=== PATIENT | female | born 1965 | race Caucasian/White ===

== ENCOUNTER → 2018-01-14 08:01 | Outpatient (CLI) | payer OTHER, SELFPAY ==
--- NOTE | 2018-01-14 08:16 | BI_ITS ---
MAMMOGRAPHY - BILATERAL SCREENING REASON FOR EXAM: Female, 52 years old. Routine annual screening examination. PERTINENT HISTORY: Non-contributory. TECHNIQUE: Digital bilateral breast maryanne (3D mammographic acquisition) in the CC and MLO projections. 2-D mediolateral oblique (MLO) and craniocaudad (CC) views of both breasts were obtained. CAD: Full Field Digital Mammography with Computer Added Detection was performed. COMPARISON: Comparison is made with prior study dated February 07, 2014 and September 10, 2011. FINDINGS: Breast Composition: The breasts are heterogeneously dense, which may obscure small masses. There are no dominant masses or suspicious calcifications. No other significant abnormalities are identified. There has been no significant change since the prior study. BI/SCREENING MAMM (CAD), BILAT IMPRESSION: Stable bilateral screening mammogram. Yearly follow-up mammogram recommended. (A) ASSESSMENT CATEGORY: BIRADS Category 1: Negative. A letter regarding these results will be sent to the patient by the facility within 30 days. Approximately 10% of breast cancers are not detected by mammography. A normal mammogram should not delay biopsy of a clinically suspicious abnormality. [id number] Electronically Signed: Giovany Saldana MD at 10:29 EDT Tel [phone], Service support ,
== END ==
PROVIDERS: Family Provider Family Medicine; PCP Family Medicine; Visit Provider Nurse Practitioner Women's Health
DX: Z12.31 Encounter for screening mammogram for malignant neoplasm of breast (principal)
CPT/HCPCS: 77063; 77067

== ENCOUNTER → 2019-12-24 08:00 | Outpatient (CLI) | payer OTHER, SELFPAY ==
--- NOTE | 2019-12-24 08:01 | BI_ITS ---
MAMMOGRAPHY - BILATERAL SCREENING REASON FOR EXAM: Female, 54 years old. Routine annual screening examination. PERTINENT HISTORY: Non-contributory. Remote left needle biopsy. TECHNIQUE: Digital bilateral breast carlyle (3D mammographic acquisition) in the CC and MLO projections. 2-D mediolateral oblique (MLO) and craniocaudad (CC) views of both breasts were obtained. CAD: Full Field Digital Mammography with Computer Added Detection was performed. COMPARISON: Comparison is made with prior examination dated January 14, 2018 and January 16, 2014. FINDINGS: Breast Composition: The breasts are heterogeneously dense, which may obscure small masses. There are no dominant masses or suspicious calcifications. Stable small benign appearing bilateral axillary lymph nodes. No other significant abnormalities are identified. There has been no significant change since the prior study. BI/SCREEN MAMM (CAD) W/CARLYLE BILAT IMPRESSION: Stable bilateral screening mammogram. Yearly follow-up mammogram recommended. (A) ASSESSMENT CATEGORY: BIRADS Category 2: Benign. A letter regarding these results will be sent to the patient by the facility within 30 days. Approximately 10% of breast cancers are not detected by mammography. A normal mammogram should not delay biopsy of a clinically suspicious abnormality. [id number] Electronically Signed: Giovany Saldana, at 9:49 EDT , Service support ,
== END ==
PROVIDERS: PCP Family Medicine; Referring Provider Nurse Practitioner Women's Health; Visit Provider Nurse Practitioner Women's Health
DX: Z12.31 Encounter for screening mammogram for malignant neoplasm of breast (principal)
CPT/HCPCS: 77063; 77067

== ENCOUNTER → 2019-12-29 07:37 | Outpatient (CLI) | payer OTHER, SELFPAY ==
[2019-12-24 08:34] VITALS: BMI 36.5
--- NOTE | 2019-12-29 07:56 | US_ITS ---
STUDY: ULTRASOUND OF THE FEMALE PELVIS - COMPLETE REASON FOR EXAM: Female, 54 years old. Irregular menses TECHNIQUE: Transabdominal and Transvaginal TECHNICAL QUALITY: Adequate. COMPARISON: None. FINDINGS: The uterus is anteverted and is in a midline position. The uterus measures 9.4 cm x 4.8 cm x 4.9 cm. There is a Nabothian cyst of the cervix. The endometrium measures 3.1 mm in thickness, and is hyperechoic. There is no demonstrated endometrial mass. The uterus is of heterogeneous echotexture in keeping with fibroid change although no focal fibroid is seen. I.U.D. - The patient does not have an I.U.D. The right ovary is visualized. The right ovary measures 2.9 cm x 1.9 cm x 1.6 cm. There is no right ovarian cyst or ovarian mass. There is no visualized right adnexal mass or complex lesion. There is normal arterial and normal venous vascularity. The left ovary is visualized. The left ovary measures 5.4 cm x 4.2 cm x 2.8 cm. There is a 3.5 cm x 3.3 cm x 2.7 cm cyst in the left ovary. There is no visualized left adnexal mass or complex lesion. There is normal arterial and normal venous vascularity. There is no fluid in the cul-de-sac. The pre void volume of the bladder was 139 ml. Polycystic ovary disease: No. US/Pelvic (Non ) IMPRESSION: Heterogeneous echotexture of the uterus suggestive of fibroid change. 3.5 cm x 3.3 cm x 2.7 cm left ovarian cyst. Electronically Signed: Giovany Saldana, at 10:23 EDT , Service support ,
--- NOTE | 2019-12-29 07:56 | US_ITS ---
STUDY: ULTRASOUND OF THE FEMALE PELVIS - COMPLETE REASON FOR EXAM: Female, 54 years old. Irregular menses TECHNIQUE: Transabdominal and Transvaginal TECHNICAL QUALITY: Adequate. COMPARISON: None. FINDINGS: The uterus is anteverted and is in a midline position. The uterus measures 9.4 cm x 4.8 cm x 4.9 cm. There is a Nabothian cyst of the cervix. The endometrium measures 3.1 mm in thickness, and is hyperechoic. There is no demonstrated endometrial mass. The uterus is of heterogeneous echotexture in keeping with fibroid change although no focal fibroid is seen. I.U.D. - The patient does not have an I.U.D. The right ovary is visualized. The right ovary measures 2.9 cm x 1.9 cm x 1.6 cm. There is no right ovarian cyst or ovarian mass. There is no visualized right adnexal mass or complex lesion. There is normal arterial and normal venous vascularity. The left ovary is visualized. The left ovary measures 5.4 cm x 4.2 cm x 2.8 cm. There is a 3.5 cm x 3.3 cm x 2.7 cm cyst in the left ovary. There is no visualized left adnexal mass or complex lesion. There is normal arterial and normal venous vascularity. There is no fluid in the cul-de-sac. The pre void volume of the bladder was 139 ml. Polycystic ovary disease: No. US/Transvaginal Non- IMPRESSION: Heterogeneous echotexture of the uterus suggestive of fibroid change. 3.5 cm x 3.3 cm x 2.7 cm left ovarian cyst. Electronically Signed: Giovany Saldana, at 10:23 EDT , Service support ,
== END ==
PROVIDERS: PCP Family Medicine; Referring Provider Nurse Practitioner Women's Health; Visit Provider Nurse Practitioner Women's Health
DX: N92.6 Irregular menstruation, unspecified (principal)
CPT/HCPCS: 76830; 76856

== ENCOUNTER → 2020-03-01 07:58 | Outpatient (CLI) | payer OTHER, SELFPAY ==
[2019-12-24 08:34] VITALS: BMI 36.5
--- NOTE | 2020-03-01 07:59 | US_ITS ---
STUDY: ULTRASOUND OF THE FEMALE PELVIS - COMPLETE REASON FOR EXAM: Female, 54 years old. F/U LT O CYST -- PERIMENOPAUSAL LMP: 11/24/2019. TECHNIQUE: Transabdominal and Transvaginal TECHNICAL QUALITY: Adequate. COMPARISON: Comparison is made with prior study dated 12/29/2019. FINDINGS: The uterus is anteverted and is in a midline position. The uterus measures 11.6 cm x 6.4 cm x 6.3 cm. Normal uterine cervix. The endometrium measures 5.0 mm in thickness, and is hyperechoic. Punctate calcifications are seen within the endometrium. There is no demonstrated endometrial mass. The myometrium is of heterogeneous echotexture with fibroid change although no focal fibroid is seen. Small amount of fluid is seen within the cervix. I.U.D. - The patient does not have an I.U.D. The right ovary is visualized. The right ovary measures 2.8 cm x 3.1 cm x 1.1 cm. There is no right ovarian cyst or ovarian mass. There is no visualized right adnexal mass or complex lesion. There is normal arterial and normal venous vascularity. The left ovary is visualized. The left ovary measures 4 cm x 4.9 cm x 2.9 cm. There is a 3.1 cm x 3.1 cm x 2.4 cm cyst in the left ovary. There is no visualized left adnexal mass or complex lesion. There is normal arterial and normal venous vascularity. There is no fluid in the cul-de-sac. US/Transvaginal Non- IMPRESSION: Mildly enlarged heterogeneous uterus. 3.1 cm x 3.1 cm x 2.4 cm cyst in the left ovary. This has decreased slightly in size as compared to prior study. Electronically Signed: Giovany Saldana, at 10:02 EDT , Service support ,
--- NOTE | 2020-03-01 07:59 | US_ITS ---
STUDY: ULTRASOUND OF THE FEMALE PELVIS - COMPLETE REASON FOR EXAM: Female, 54 years old. F/U LT O CYST -- PERIMENOPAUSAL LMP: 11/24/2019. TECHNIQUE: Transabdominal and Transvaginal TECHNICAL QUALITY: Adequate. COMPARISON: Comparison is made with prior study dated 12/29/2019. FINDINGS: The uterus is anteverted and is in a midline position. The uterus measures 11.6 cm x 6.4 cm x 6.3 cm. Normal uterine cervix. The endometrium measures 5.0 mm in thickness, and is hyperechoic. Punctate calcifications are seen within the endometrium. There is no demonstrated endometrial mass. The myometrium is of heterogeneous echotexture with fibroid change although no focal fibroid is seen. Small amount of fluid is seen within the cervix. I.U.D. - The patient does not have an I.U.D. The right ovary is visualized. The right ovary measures 2.8 cm x 3.1 cm x 1.1 cm. There is no right ovarian cyst or ovarian mass. There is no visualized right adnexal mass or complex lesion. There is normal arterial and normal venous vascularity. The left ovary is visualized. The left ovary measures 4 cm x 4.9 cm x 2.9 cm. There is a 3.1 cm x 3.1 cm x 2.4 cm cyst in the left ovary. There is no visualized left adnexal mass or complex lesion. There is normal arterial and normal venous vascularity. There is no fluid in the cul-de-sac. US/Pelvic (Non ) IMPRESSION: Mildly enlarged heterogeneous uterus. 3.1 cm x 3.1 cm x 2.4 cm cyst in the left ovary. This has decreased slightly in size as compared to prior study. Electronically Signed: Giovany Saldana, at 10:02 EDT , Service support ,
== END ==
PROVIDERS: PCP Family Medicine; Referring Provider Nurse Practitioner Women's Health; Visit Provider Nurse Practitioner Women's Health
DX: N83.209 Unspecified ovarian cyst, unspecified side (principal)
CPT/HCPCS: 76830; 76856

== ENCOUNTER → 2020-07-26 08:03 | Outpatient (CLI) | payer OTHER, SELFPAY ==
[2020-03-31 09:29] VITALS: BMI 37.2
--- NOTE | 2020-07-26 08:08 | US_ITS ---
STUDY: ULTRASOUND OF THE FEMALE PELVIS - COMPLETE REASON FOR EXAM: Female, 55 years old. F/U LTO CYST, PELVIC PAIN LMP: 06/17/2020 TECHNIQUE: Transabdominal and Transvaginal TECHNICAL QUALITY: Adequate. COMPARISON: 03/01/2020 FINDINGS: The uterus is anteverted and is in a midline position. The uterus measures 11.5 x 5.8 x 3.6 cm. Normal uterine cervix. The endometrium measures 5 mm in thickness, and is hyperechoic. There is no demonstrated endometrial mass. There is no demonstrated myometrial mass. I.U.D. - The patient does not have an I.U.D. The right ovary is visualized. The right ovary measures 1.4 x 2.3 x 1.5 cm. There is no right ovarian cyst or ovarian mass. There is no visualized right adnexal mass or complex lesion. There is normal arterial and normal venous vascularity. The left ovary is visualized. The left ovary measures 4.8 x 4.2 x 3.4 cm. 3.4 cm corpus luteum cyst left ovary. There is no visualized left adnexal mass or complex lesion. There is normal arterial and normal venous vascularity. There is no fluid in the cul-de-sac. The pre void volume of the bladder was ml. The post void volume of the bladder was ml. Polycystic ovary disease: No. US/Transvaginal Non- IMPRESSION: 3.4 cm corpus luteum cyst left ovary. Electronically Signed: Roshan Winter MD at 9:27 EST Tel , Service support ,
--- NOTE | 2020-07-26 08:08 | US_ITS ---
STUDY: ULTRASOUND OF THE FEMALE PELVIS - COMPLETE REASON FOR EXAM: Female, 55 years old. F/U LTO CYST, PELVIC PAIN LMP: 06/17/2020 TECHNIQUE: Transabdominal and Transvaginal TECHNICAL QUALITY: Adequate. COMPARISON: 03/01/2020 FINDINGS: The uterus is anteverted and is in a midline position. The uterus measures 11.5 x 5.8 x 3.6 cm. Normal uterine cervix. The endometrium measures 5 mm in thickness, and is hyperechoic. There is no demonstrated endometrial mass. There is no demonstrated myometrial mass. I.U.D. - The patient does not have an I.U.D. The right ovary is visualized. The right ovary measures 1.4 x 2.3 x 1.5 cm. There is no right ovarian cyst or ovarian mass. There is no visualized right adnexal mass or complex lesion. There is normal arterial and normal venous vascularity. The left ovary is visualized. The left ovary measures 4.8 x 4.2 x 3.4 cm. 3.4 cm corpus luteum cyst left ovary. There is no visualized left adnexal mass or complex lesion. There is normal arterial and normal venous vascularity. There is no fluid in the cul-de-sac. The pre void volume of the bladder was ml. The post void volume of the bladder was ml. Polycystic ovary disease: No. US/Pelvic (Non ) IMPRESSION: 3.4 cm corpus luteum cyst left ovary. Electronically Signed: Roshan Winter MD at 9:27 EST Tel , Service support ,
== END ==
PROVIDERS: PCP Family Medicine; Referring Provider Obstetrics & Gynecology; Visit Provider Obstetrics & Gynecology
DX: N80.0 Endometriosis of uterus (principal)
CPT/HCPCS: 76830; 76856; 93976

== ENCOUNTER → 2021-01-27 16:38 | Outpatient (CLI) | payer OTHER, SELFPAY ==
[2021-01-27 08:53] VITALS: BMI 36.5
[2021-02-02 16:00] LABS: HPV APTIMA, High Risk Negative (Negative)
== END ==
PROVIDERS: PCP Family Medicine; Visit Provider Obstetrics & Gynecology
DX: Z12.4 Encounter for screening for malignant neoplasm of cervix (principal)
CPT/HCPCS: 87624; 88175; G0145

== ENCOUNTER → 2021-02-03 07:19 | Outpatient (CLI) | payer OTHER, SELFPAY ==
[2020-03-31 09:29] VITALS: BMI 37.2
[2021-01-27 08:53] VITALS: BMI 36.5
--- NOTE | 2021-02-03 07:19 | BI_ITS ---
MAMMOGRAPHY - BILATERAL SCREENING REASON FOR EXAM: Female, 55 years old. Routine annual screening examination. PERTINENT HISTORY: Non-contributory. TECHNIQUE: Digital bilateral breast carlyle (3D mammographic acquisition) in the CC and MLO projections. 2-D mediolateral oblique (MLO) and craniocaudad (CC) views of both breasts were obtained. CAD: Full Field Digital Mammography with Computer Added Detection was performed. COMPARISON: Comparison is made with prior examination dated 12/24/2019 and 01/14/2018. FINDINGS: Breast Composition: The breasts are heterogeneously dense, which may obscure small masses. There are no dominant masses or suspicious calcifications. Stable benign-appearing bilateral axillary nodes. No other significant abnormalities are identified. There has been no significant change since the prior study. BI/SCRN MAMM (CAD)W/CARLYLE BILAT IMPRESSION: Stable bilateral screening mammogram. Yearly follow-up mammogram recommended. (A) ASSESSMENT CATEGORY: BIRADS Category 2: Benign. A letter regarding these results will be sent to the patient by the facility within 30 days. Approximately 10% of breast cancers are not detected by mammography. A normal mammogram should not delay biopsy of a clinically suspicious abnormality. [id number] Electronically Signed: Giovany Saldana MD at 8:18 EDT , Service support ,
== END ==
PROVIDERS: PCP Family Medicine; Referring Provider Obstetrics & Gynecology; Visit Provider Obstetrics & Gynecology
DX: Z12.31 Encounter for screening mammogram for malignant neoplasm of breast (principal)
CPT/HCPCS: 77063; 77067

== ENCOUNTER → 2023-03-18 | Outpatient (CLI) | payer OTHER, SELFPAY ==
[2023-03-18 12:09] LABS: Estradiol < 11.0 pg/mL; Follicle Stimulating Hormone 54.8 mIU/mL
== END | disposition home or self-care (01) ==
PROVIDERS: PCP Family Medicine; Referring Provider Obstetrics & Gynecology; Visit Provider Obstetrics & Gynecology
DX: N92.6 Irregular menstruation, unspecified (principal)
CPT/HCPCS: 36415; 82670; 83001

== ENCOUNTER → 2023-03-26 | Outpatient (CLI) | payer OTHER, SELFPAY ==
--- NOTE | 2023-03-26 15:29 | US_ITS ---
INDICATION: IRREGULAR MENSES EXAMINATION: Ultrasound US Pelvis Non OB Complete With Transvaginal Imaging COMPARISON: None. FINDINGS: 99 grayscale ultrasound images of the pelvis obtained both transabdominally and transvaginally. In addition dedicated ovarian color Doppler and Doppler waveform interrogation was performed. Cinematic series provided. UTERUS: Uterus measures : 12.4 x 7.3 x 4.5 cm. Endometrial thickness of 0.5 cm. Anechoic fluid within the endocervical canal. Myometrium is heterogeneous with dominant shadowing hypoechoic and echogenic lesions consistent with fibroids, containing shadowing calcifications measuring up to 1.6 cm. ADNEXA: Flow is documented to bilateral ovaries by color Doppler as well as Doppler waveform. Right ovary is not visualized. Left ovarian anechoic 4.2 cm cyst. No significant free fluid. Distended urinary bladder is without obvious abnormality, 275 cc volume. US/Pelvic w/ Transvaginal IMPRESSION: Right ovary is not visualized. Left ovarian anechoic 4.2 cm cyst. Enlarged fibroid uterus. Electronically Signed: Edson Luis MD at 6:50 EDT ,
== END | disposition home or self-care (01) ==
LOC: US 15:28
PROVIDERS: PCP Family Medicine; Referring Provider Obstetrics & Gynecology; Visit Provider Obstetrics & Gynecology
DX: N92.6 Irregular menstruation, unspecified (principal)
CPT/HCPCS: 76830; 76856

== ENCOUNTER 2023-04-16 05:57 | Day surgery (SDC) | payer OTHER, SELFPAY ==
--- NOTE | 2023-04-11 08:33 | EKG12_ITS ---
Test Reason : PRE OP Blood Pressure : / mmHG Vent. Rate : 072 BPM Atrial Rate : 072 BPM P-R Int : 152 ms QRS Dur : 084 ms QT Int : 350 ms P-R-T Axes : 037 094 036 degrees QTc Int : 383 ms Normal sinus rhythm Low voltage QRS Borderline ECG Confirmed by ARTI JEWELL, PATITO ([id number]), city editor ALFIE KASPER ([id number]) on 04/15/2023 1:57:28 PM Referred By: Eladia Steinberg Confirmed By:PATITO CHI MD
[2023-04-11 09:47] LABS: Hemoglobin 14.2 g/dL (12.0-15.0); Mean Corp Hgb Conc 32.3 g/dL (32-36); Mean Corpuscular Hgb 30.9 pg (27.0-32.0); Mean Corpuscular Volume 95.9 fL (81-99); Mean Platelet Vol. 9.4 fl (6.2-12.0); Platelet Count 239 K/mm3 (150-450); RBC Distribution Width CV 12.2 % (11.6-14.6); RBC Distribution Width SD 43.2 fl (35.1-43.9); Red Blood Count 4.59 M/mm3 (4.2-5.4); White Blood Count 5.2 K/mm3 (4.4-11.0)
[2023-04-11 10:19] LABS: ALB/GLOB Ratio 1.3 RATIO (0.9-2.4); AST(SGOT) 17 U/L (15-37); Alanine Aminotransfer ALT/SGPT 39 U/L (13-56); Albumin, Serum 3.7 g/dL (3.2-5.0); Alkaline Phosphatase 119 U/L (45-117); Anion Gap 2 (5-15); BUN 16 mg/dL (7-18); BUN/Creat Ratio 21.6 RATIO (10-20); Calcium,Total 8.9 mg/dL (8.5-10.1); Chloride 107 mmol/L (98-107); Creatinine, Serum 0.74 mg/dL (0.55-1.02); EST Glomerular Filtration Rate 86 mL/min (>60); Est Glom Filt Rate - Afr Amer 104 mL/min (>60); Globulin 2.9 g/dL (2.2-4.2); Glucose 103 mg/dL (74-106); Protein, Total 6.6 g/dL (6.4-8.2); Sodium Level 138 mmol/L (136-145)
[2023-04-16] VITALS (8 sets, daily range): BP systolic 113–153; BP diastolic 67–91; PULSE 81–95; RESP 16–18; TEMP 36.2–37.6; O2SAT 93–97; BMI 37.9
[2023-04-16] MEDS: Lactated Ringers 1,000 ML 15 ML IV (06:39)
--- NOTE | 2023-04-16 07:30 | EMB_PTH ---
PATIENT: QUINTEN KRISHNAN LOC[place] [facility] [place][id number] AGE/SX: 57/F ROOM: RE04/16/[address]: Dr. Eladia Steinberg MD : 1965 BED: DIS: 04/16/2023 SPEC #: [id number] RECD: 04/16/23 12:07 STATUS: KENDALL RESarmad #: [id number] LORE: 04/16/23 07:[address]: Eladia Steinberg DEPT: SURGICAL PATHOLOGY RECD BY: Lucina Douglas ENTERED: 04/16/23 12:46 SP TYPE: ENDOM BX/C OTHR DR: Dr. Anival Flower MD Tissues: Endometrium, NOS Procedures: Surgery Specimen Level IV HEADER OPERATION: Hysteroscopy, D & C PRE-OP DIAGNOSIS: Cervical stenosis, postmenopausal bleeding TISSUE SUBMITTED: Endometrial curettings MICROSCOPIC DIAGNOSIS Endometrium, curettings: Strips of benign superficial squamous mucosa. Rare strips of benign superficial glandular mucosa. See comment. AM:rory 04/17/2023 COMMENT The specimen primarily consists of mucoid material. Clinical correlation is suggested. MICROSCOPIC DESCRIPTION Slides are reviewed. GROSS DESCRIPTION Received in fixative is one container labeled with the patient's name and designated endometrial curettings. The specimen consists of multiple irregular fragments of pink soft tissue mixed with mucoid tissue that in aggregate measure 3.0 x 2.5 x 0.3 cm. The specimen is totally submitted in one cassette. / SJ:rory 04/16/2023 TC:5 CPT: 29315
--- NOTE | 2023-04-16 07:32 | HP.PCM_ITS ---
History and Physical Vital Signs 03/18/2310:01 04/01/2316:02 04/01/2316:03 Height 5 ft 1 in 5 ft 1 in 5 ft 1 in Weight: 206 lb 4 oz 201 lb 4 oz BMI 38.9 38.0 BP 158/80 H 153/77 H Intake Visit Reasons: D&C [employer] Producer Required: No Is patient in pain?: No Allergies No Known Allergies Allergy (Unverified 04/01/23 16:02) Medications lisinopril 10 mg tablet 10 mg PO DAILY 01/27/21 [History Confirmed 04/01/23] misoprostol 200 mcg tablet (Cytotec) 200 mcg PO .complex #2 tabs 04/05/23 [Rx Confirmed 04/05/23] Is last menstrual period known: No Patient : No : No PFSH Medical History Hypertension Surgical History delivery delivered History of tonsillectomy Hx of breast biopsy Family History Mother HypertensionFather Hypertension Cancer prostate- remission Grandfather Heart diseaseGrandmother Heart disease Social History Smoking Status: Never smoker alcohol intake: never substance use type: does not use caffeine: Yes what type of physical activity do you participate in: walking seatbelt use: always do you feel safe at home: Yes additional social history: [employer] 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 labs in postmenopausal range and she has had intermittent spotting in the last few months, cervical stenosis present- unable to biopsy in the office. she denies any bloating or pelvic pain, last bleeding episode was last month and lasted a few days, light. she had a preivous episode several months earlier History 2 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 Date Name GA/Weeks Outcome Route Bth Weight Infant Gen Labor Lgth Anesthesia Del Locatn Provider FOB Unknown 1993 Emily live - full term C-s ection Unknown 197 Luke live - full term C-secti on ROS Const Constitutional: Denies fatigue, fever(s), headache(s), increased appetite, poor appetite, weight gain or weight loss GI GI: Reports as per HPI; Denies abdominal pain, constipation, nausea or vomiting : Reports as per HPI; Denies difficulty voiding, dysuria, hematuria, pelvic pain, urinary frequency, urinary incontinence, urinary hesitancy, urinary urgency, vaginal discharge, vaginal dryness, vaginal odor, vaginal pruritus or other Exam Const General: cooperative, healthy appearing, comfortable, no acute distress and well developed Orientation: alert HENMT Head: normal to inspection and normocephalic Ears: hearing grossly normal bilaterally and external ears normal Nose: external nose normal and nares normal Face and sinus: normal facial exam Neck Neck: normal visual inspection, no lymphadenopathy and trachea midline Thyroid: thyroid normal Resp Effort & Inspection: normal respiratory effort Musc Other: gross motor intact no deficits, full bilateral strength Skin General: no rashes or lesions noted Neuro Motor: muscle tone normal throughout Coding Level of Care Code Off vis,est,level 4 Diagnoses Cervical stenosis (uterine cervix) N88.2 Postmenopausal bleeding N95.0 Assessment and Plan Assessment and Plan (1) Cervical stenosis (uterine cervix): Status: Acute Comment: would need cytotec prior to d and c if needs surgery (2) Postmenopausal bleeding: Status: Acute Comment: recommend d and c hysteroscopy possible symphion Medications: New misoprostol (Cytotec) take the night before and two hours prior to the procedure 2 tabs 1RF Plan discussed options of repeat US and expectant management versus immediate surgery. After discussing the patient's diagnosis and treatment plan options, patient wishes to proceed with surgical management. I have discussed with the patient the risks, benefits, and alternatives of the procedure which include but are not limited to risks of anesthesia, bleeding, infection, possible damage to bowel, bladder, or surrounding vasculature which could lead to additional surgery to evaluate any complications. Patient agrees to procedure and wishes to proceed. ACOG/uptodate references given for additional information regarding procedure. UPDATE- I have seen the patient and performed any clinically relevant updates to the history and physical exam. Eladia Steinberg MD
--- NOTE | 2023-04-16 07:33 | PCM.OPRPT ---
Problems Associated Problem List Diagnoses (1) Postmenopausal bleeding: (2) Cervical stenosis (uterine cervix): Report of Operation Date of Procedure: 04/16/23 Pre-Operative Diagnosis: see problem list Post-Operative Diagnosis: same Surgery/Procedure Performed:: D&C hysteroscopy Description of Surgical Findings:: atrophic lining Surgeon: Eladia Steinberg custom framing specialist: None Type of Anesthesia: Local MAC Special Medications: none Specimen's removed: EMC Drains: none Estimated Blood Loss (mL): 25 Fluids Replaced: crystalloid Description of Procedure: Patient was prepped and draped in a normal sterile fashion under MAC anesthesia. A weighted speculum was placed in the vagina and the anterior lip of the cervix was grasped with a single-tooth tenaculum. A paracervical block was placed with 1% lidocaine. Cervix was progressively dilated to allow passage of a 5 mm hysteroscope. The lining was fully visualized and noted to have atrophy . Uterine sounded to 8 cm. sharp curreteage performed and all specimens were sent to pathology. All instruments were removed from the vagina and excellent hemostasis was noted. Patient was awoken and taken to recovery in stable condition. Grafts/Implants Used: none Complications none Admit VTE Documentation VTE Present on Admission: No VTE Mechan Device Prophylaxis: SCD's Multi Select Codes Urinary/Genital Urinary/Genital CPT Codes: 18298 Hysteroscopy, diagnostic
--- NOTE | 2023-04-16 07:36 | DCINST_ITS ---
Discharge Instructions Diet Discharge Diet: No restrictions Activity Discharge Activity: Return to Normal Activity, May Shower and May Take a Tub Bath (after 1 week) May resume sexual activity in: 1-2 weeks Weight Bearing Status: Weight bearing as tolerated Lifting Restrictions: none Dressing / Incision Call your doctor if you observe: Fever of 101 or Higher, Using more than 1 pad per hour, Shortness of breath and Uncontrolled pain Follow Up Care Please Follow Up With: Eladia Steinberg MD When: Call [phone] to schedule appointment. Test Results: Test results from this visit will be discussed in further detail at your follow- up appointment, if applicable. Discharge Plan Admission Attending Provider: Eladia Steinberg Primary Care Provider: Anival Flower Discharge Orders/Prescriptions Prescriptions: No Action lisinopril 10 mg tablet 10 mg PO QHS misoprostol [Cytotec] 200 mcg tablet 200 mcg PO .complex Qty: 2 1RF Rx Instructions: take the night before and two hours prior to the procedure fexofenadine-pseudoephedrine [24HR Allergy-Congestion Relief] 180-240 mg tablet extended release 24 hr 1 tab PO DAILY Rhinocort Allergy 1 spray NASAL QHS Patient Comments: Both nostrils Other Ambulatory Orders: 12 Lead EKG (Routine) Timeframe: [id number] Location: None Selected Ordered By: Dr. Eladia Steinberg Referrals / Follow Up: Anival Flower MD [Primary Care Provider] - Disposition Disposition (needs filled in before D/C Order can be placed): Home, Self Care
== END 2023-04-16 09:40 | disposition home or self-care (01) ==
LOC: SDC 06:02 → AC 06:03
PROVIDERS: PCP Family Medicine; Referring Provider Obstetrics & Gynecology; Visit Provider Obstetrics & Gynecology
PROC: 0UB98ZZ Excision of Uterus, Via Natural or Artificial Opening Endoscopic (ICD-10-PCS; CPT 58558; principal; 2023-04-16 07:15)
DX: N95.0 Postmenopausal bleeding (principal); N88.2 Stricture and stenosis of cervix uteri; I10 Essential (primary) hypertension; Z79.899 Other long term (current) drug therapy
CPT/HCPCS: 58558; 00952; 36415; 80053; 85027; 86850; 86900; 86901; 88305; 93005; J7120; J2405

== ENCOUNTER → 2023-08-09 | Outpatient (CLI) | payer OTHER, SELFPAY ==
--- NOTE | 2023-08-09 07:52 | BI_ITS ---
MAMMOGRAPHY - BILATERAL SCREENING REASON FOR EXAM: Female, 58 years old. Routine annual screening examination. PERTINENT HISTORY: Non-contributory. TECHNIQUE: Digital bilateral breast carlyle (3D mammographic acquisition) in the CC and MLO projections. 2-D mediolateral oblique (MLO) and craniocaudad (CC) views of both breasts were obtained. CAD: Full Field Digital Mammography with Computer Added Detection was performed. COMPARISON: Comparison is made with prior study dated February 03, 2021 and December 24, 2019. FINDINGS: Breast Composition: The breasts are heterogeneously dense, which may obscure small masses. There are no dominant masses or suspicious calcifications. A tissue clip marker is seen in the slightly upper lateral anterior aspect of the right breast. No other significant abnormalities are identified. There has been no significant change since the prior study. BI/SCRN MAMM (CAD)W/CARLYLE BILAT IMPRESSION: Stable bilateral screening mammogram. Yearly follow-up mammogram recommended. (A) ASSESSMENT CATEGORY: BIRADS Category 2: Benign. A letter regarding these results will be sent to the patient by the facility within 30 days. Approximately 10% of breast cancers are not detected by mammography. A normal mammogram should not delay biopsy of a clinically suspicious abnormality. [id number] Electronically Signed: Giovany Saldana MD at 10:37 EST ,
--- OUTSIDE RECORDS SUMMARY | 2023-08-09 07:53 | XMS RPT_ITS | CCD ---
Author Name Unknown Address [address] [place] [id number] Organization [facility] Care Team Providers Care Infection Control Practitioner Name Role Phone Nataliia Burgess NP Unavailable Medications Completed/Discontinued Medications Medication Drug Class(es) Dates Sig (Normalized) Sig (Original) amoxicillin 875 mg / clavulanate 125 mg oral tablet (1 source) Penicillin-class Antibacterial Start: 04-30-2017 AUGMENTIN 875-125 MG TABS sinus infection AMOXICILLIN-POT CLAVULANATE [id number] Nataliia Burgess PLASTERING CONTRACTOR Results Test Name Value Interpretation Reference Range Facil ity Vital Signs Date Time Vital Sign Value Performing Clinician Facility 04-30-2017 09:34-0400 BMI (Body Mass Index) 35.22 kg/m2 Nataliia Burgess NP [facility] 04-30-2017 09:34-0400 Body Temperature 97.1 [degF] Nataliia Burgess NP [facility] 04-30-2017 09:34-0400 Body Temperature 97.11 [degF] Nataliia Burgess NP [facility] 04-30-2017 09:34-0400 BP Diastolic 84 mm[Hg] Nataliia Burgess NP [facility] 04-30-2017 09:34-0400 BP Systolic 143 mm[Hg] Nataliia Burgess NP [facility] 04-30-2017 09:34-0400 Height 154.94 cm Nataliia Burgess NP [facility] 04-30-2017 09:34-0400 Pulse (Heart Rate) 89 /min Nataliia Burgess NP [facility] 04-30-2017 09:34-0400 Respiratory Rate 16 /min Nataliia Burgess NP [facility] 04-30-2017 09:34-0400 Weight 84.55 kg Nataliia Burgess PLASTERING CONTRACTOR [facility] Procedures Date Procedure Procedure Detail Performing Clinician Start: 04-30-2017 Gynecologic examination Routine gynecological examination Nataliia Burgess PLASTERING CONTRACTOR Start: 04-30-2017 Screening mammography Mammogram yearly screening Nataliia Burgess PLASTERING CONTRACTOR Start: 04-30-2017 End: 04-30-2017 Documentation of current medications Nataliia Burgess NP Plan of Treatment Date Care Activity Detail Author Start: 04-30-2017 End: 04-30-2017 Mammogram, screening Mammogram, Screening, both breasts [facility] Start: 04-30-2017 End: 04-30-2017 Appointment Appointment [facility] Additional Source Comments FOR RECORDS PERTAINING TO PATIENTS WHO ARE OR HAVE BEEN ENROLLED IN A CHEMICAL DEPENDENCY/SUBSTANCEABUSE PROGRAM, SOME INFORMATION MAY BE OMITTED. This clinical summary was aggregated from multiple sources. Caution should be exercised in using it in the provision of clinical care. This summary normalizes information from multiple sources, and as a consequence, information in this document may materially change the coding, format and clinical context of patient data. In addition, data may be omitted in some cases. CLINICAL DECISIONS SHOULD BE BASED ON THE PRIMARY CLINICAL RECORDS. [facility] [employer] [facility]. provides no warranty or guarantee of the accuracy or completeness of information in this document.
== END | disposition home or self-care (01) ==
LOC: OPBI 07:51
PROVIDERS: PCP Family Medicine; Referring Provider Family Medicine; Visit Provider Family Medicine
DX: Z12.31 Encounter for screening mammogram for malignant neoplasm of breast (principal)
CPT/HCPCS: 77063; 77067

== ENCOUNTER → 2024-08-19 | Outpatient (CLI) | payer OTHER, SELFPAY ==
--- NOTE | 2024-08-19 14:18 | US_ITS ---
PROCEDURE: PELVIC W/ TRANSVAGINAL REASON FOR EXAM: Postmenopausal bleeding. TECHNIQUE: Transabdominal and transvaginal pelvic ultrasound COMPARISON: Comparison is made with prior study dated March 26, 2023. FINDINGS: Measurements: Uterus: 12.5 cm x 5.8 cm x 5.3 cm. Evidence of a 1.7 cm x 1.7 cm x 0.9 cm calcified fibroid. There is also evidence of a 1.6 cm x 0.9 cm x 1.2 cm fibroid. Endometrial Thickness: 7.1 mm. The endometrium has a trilaminar appearance. This is thickened. Right Ovary: Not visualized. Left Ovary: 5.6 cm x 5.4 cm x 4.2 cm. There is a 4.8 cm x 4.7 cm x 4.3 cm cyst. TRANSABDOMINAL: Uterus: Fibroid uterus. Endometrium: Thickened. This measures 7.1 mm. Right ovary: Not visualized. Left ovary: 4.8 cm x 4.77 x 4.3 cm simple cyst. No large pelvic mass identified. Transvaginal sonography was performed to better visualize the endometrium. TRANSVAGINAL: Uterus: Anteverted. Fibroid uterus. Endometrium: Endometrial thickening measuring 7.1 cm. Right ovary: Not visualized Left ovary: 4.8 cm x 4.77 x 4.3 cm simple cyst. Other adnexal findings: None. Cul-de-sac: No free intraperitoneal fluid identified. No tenderness. US/Pelvic w/ Transvaginal IMPRESSION: Fibroid uterus. Endometrial thickening. Left ovarian cyst. Follow-up recommended. Reading Location: [place] [address]
== END | disposition home or self-care (01) ==
LOC: US 14:16
PROVIDERS: PCP Family Medicine; Referring Provider Obstetrics & Gynecology; Visit Provider Obstetrics & Gynecology
DX: N95.0 Postmenopausal bleeding (principal)
CPT/HCPCS: 76830; 76856

== ENCOUNTER 2024-09-29 10:43 | Day surgery (SDC) | payer OTHER, SELFPAY ==
--- NOTE | 2024-09-22 10:12 | EKG12_ITS ---
Test Reason : PREOP Blood Pressure : */* mmHG Vent. Rate : 81 BPM Atrial Rate : 81 BPM P-R Int : 148 ms QRS Dur : 78 ms QT Int : 348 ms P-R-T Axes : 19 62 24 degrees QTcB Int : 404 ms Normal sinus rhythm Normal ECG Confirmed by Himanshu Schulte ([id number]), business editor KIRILL WIN ([id number]) on 09/23/2024 5:56:19 AM Referred By: Mari Hensley Confirmed By: Himanshu Schulte
[2024-09-22 10:52] LABS: Hematocrit 42.8 % (37-47); Hemoglobin 14.1 g/dL (12.0-15.0); Mean Corp Hgb Conc 32.9 g/dL (32-36); Mean Corpuscular Hgb 30.4 pg (27.0-32.0); Mean Corpuscular Volume 92.2 fL (81-99); Mean Platelet Vol. 8.7 fl (6.2-12.0); Platelet Count 244 K/mm3 (150-450); RBC Distribution Width CV 12.7 % (11.6-14.6); RBC Distribution Width SD 42.8 fl (35.1-43.9); Red Blood Count 4.64 M/mm3 (4.2-5.4); White Blood Count 5.2 K/mm3 (4.4-11.0)
[2024-09-22 12:44] LABS: ALB/GLOB Ratio 1.7 RATIO (0.9-2.4); Alanine Aminotransfer ALT/SGPT 26 U/L (<=34); Albumin, Serum 4.2 g/dL (3.5-5.0); Alkaline Phosphatase 131 U/L (35-104); Anion Gap 11 (5-15); BUN 14 mg/dL (4-19); BUN/Creat Ratio 20.8 RATIO (10-20); Calcium,Total 9.4 mg/dL (7.6-11.0); Carbon Dioxide 22.9 mmol/L (21.0-32.0); Chloride 105 mmol/L (98-108); Creatinine, Serum 0.69 mg/dL (0.70-1.20); EST Glomerular Filtration Rate 100 (>60); Globulin 2.5 g/dL (2.2-4.2); Glucose 98 mg/dL (70-99); Potassium 4.5 mmol/L (3.3-5.1); Protein, Total 6.7 g/dL (5.9-8.4); Sodium Level 139 mmol/L (133-145); Total Bilirubin 0.29 mg/dL (0.00-1.30)
[2024-09-22 13:09] LABS: AST(SGOT) 22 U/L (<=31)
[2024-09-29] VITALS (9 sets, daily range): BP systolic 87–163; BP diastolic 58–87; PULSE 88–99; RESP 15–16; TEMP 36.2–36.6; O2SAT 88–99; BMI 37.9
--- NOTE | 2024-09-29 11:26 | PRE.ANES_ITS ---
ASA Classification* ASA Classification ASA Classification: 2 Assessment & Plan Anesthesia* Anesthesia Assessment Anesthesia Assessment: Discussed sedation and/or anesthesia options, risks, benefits, and alternatives with patient/parents/legal guardian/POA. Questions invited. The patient/parents/legal guardian/POA seems to understand and agrees to proceed with anesthesia plan. Reviewed the physical assessment, medical history, allergy history and patient home medications list prior to surgery/procedure/anesthetic and documented any changes. Performed airway and anesthesia risk assessments. Anesthesia Type Anesthesia Type: MAC (low threshold to convert to general. Discussed possibility of general with the patient ) History Source History Obtained from:: Patient and Chart Anesthesia Focused Assessment* Temperature: 97.6 F Pulse Rate: 88 Blood Pressure: 163/87 Respiratory Rate: 16 Pulse Ox: 98 Oxygen Delivery Method: Room Air Airway Assessment Mouth opens: >3 cm Mallampati Score: II Teeth Condition: Intact Neck Range of motion (ROM): Full ROM Focused Labs Anesthesia Preop lab: CBC WBC 5.2 K/mm3 (4.4-11.0) 09/22/24 10:09/22/24 RBC 4.64 M/mm3 (4.2-5.4) 09/22/24 10:09/22/24 Hgb 14.1 g/dL (12.0-15.0) 09/22/24 10:09/22/24 Hct 42.8 % (37-47) 09/22/24 10:09/22/24 Plt Count 244 K/mm3 (150-450) 09/22/24 10:09/22/24 CHEMISTRY Potassium 4.5 mmol/L (3.3-5.1) 09/22/24 10:09/22/24 Sodium 139 mmol/L (133-145) 09/22/24 10:09/22/24 BUN 14 mg/dL (4-19) 09/22/24 10:09/22/24 Creatinine 0.69 mg/dL (0.70-1.20) L 09/22/24 10: Glucose 98 mg/dL (70-99) 09/22/24 10:09/22/24 COAG Pre-Assessment Diagnosis/Proposed Procedure Planned Operative Procedure(s): Hysteroscopy,Dilation and Curettage, Possible Myomectomy Anesthesia History 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 When Was Last Pacemaker Check QUESTION #4 FULL TEXT: You/Your Family Experience fever (hyperthermia) with Anesthesia Any additional information?: No Last Oral Intake Last Oral intake: Last Oral Intake NPO since 23:30 09/29/24 10:58 Meds taken in AM with sips of No 09/29/24 10:58 water? Meds patient instructed to take am of surgery Any additional information?: No PONV PONV - industrial commercial groundskeeper: PONV - industrial commercial groundskeeper Female Yes 09/15/24 09:18 HX of Motion Sickness Yes 09/15/24 09:18 HX of N/V After Surgery No 09/15/24 09:18 Non-Smoker Yes 09/15/24 09:18 Duration of Surgery greater Yes 09/15/24 09:18 than 60 minutes Number of Risk Factors 4 09/15/24 09:18 PONV Score Severe Risk 09/15/24 09:18 Any additional information?: No Height & Weight Height & Weight: Anesthesia: Height & Weight Height 5 ft 1 in 09/29/24 10:58 Weight: 91 kg 09/29/24 10:58 Body Mass Index (BMI) 37.9 09/29/24 10:58 Respiratory Assessment Respiratory Assessment - industrial commercial groundskeeper: Respiratory Tract Infection Hx - industrial commercial groundskeeper Hx Respiratory Tract Infection No 09/15/24 09:18 Any additional information?: No STOP Sleep Apnea STOP Sleep Apnea - industrial commercial groundskeeper: STOP Sleep Apnea - industrial commercial groundskeeper Hx Hypertension Yes: PER PT, CONTROLLED ON 09/15/24 09:18 MEDS Hx Sleep Apnea No 09/15/24 09:18 CPAP BIPAP Do you snore loudly (louder No 09/15/24 09:18 than talking or can be heard Do you often feel tired/ No 09/15/24 09:18 fatigued/ sleepy during daytime? Has anyone observed you stop No 09/15/24 09:18 breathing during sleep? STOP Results Negative 09/15/24 09:18 QUESTION #5 FULL TEXT : Do you snore loudly (louder than talking or can be heard through closed doors)? Any additional information?: No Tobacco Use History Tobacco Use History - industrial commercial groundskeeper: Tobacco Use History - industrial commercial groundskeeper Tobacco Use Smoking Status Never smoker 09/15/24 09:18 Hx Tobacco Use No 09/15/24 09:18 Years Smoking Packs Smoked per Day Smoking Cessation Date was within the last 15 years Hx Smoking Cessation Date Hx Smoking Cessation Counseling Any additional information?: No Hematologic Medial History Hematologic Hx - industrial commercial groundskeeper: Hematologic Medical Hx - vinyl dipper Hx of Blood Transfusion No 09/15/24 09:18 Hx of Transfusion in last 3 No 09/15/24 09:18 Months Date of Last Transfusion (if within last 3 months) Ever experience any problems No 09/15/24 09:18 with transfusion(s)? Specify any problems Hx of Preganancy in last 3 No 09/15/24 09:18 Months Nurse Filling Out Transfusion VCHRISTIN 09/15/24 09:18 & Questions: Date: 09/15/24 09/15/24 09:18 Time: 09:19 09/15/24 09:18 Patient unable to answer at this time (ie. confused, unrespo Any additional information?: No /Reproduction History /Reproductive History - industrial commercial groundskeeper: /Reproductive Hx- industrial commercial groundskeeper Hx Now No 09/15/24 09:18 Gestational Age (in weeks): EDC: Hx Hx Para Hx Section SAB No 09/22/24 10:52 Any additional information?: No PFSH Medical History Post-menopausal Non-smoker Seasonal allergies Hypertension Home Medications ?Medication ?Instructions ?Recorded ?Last Taken ?Type biotin 1 mg capsule 1 mg PO QDAY 08/24/24 Unknow n History cholecalciferol (vitamin D3) 50 50 mcg PO QDAY 5 Unknown History mcg (2,000 unit) capsule fexofenadine 180 mg tablet 180 mg PO DAILY 09/15/24 Un known History (Clari Allergy) lisinopril 10 mg tablet 10 mg PO DAILY 09/15/24 Unkn own History meloxicam 7.5 mg tablet 7.5 mg PO DAILY 09/15/24 Unk nown History Allergy/AdvReac Type Severity Reaction Status Date / Time No Known Allergies Allergy Verified 09/29/24 10:57 Family History Mother Hypertension Father Hypertension Cancer prostate- remission Grandfather Heart disease Grandmother Heart disease Surgical History History of hysteroscopy Hx of bilateral breast reduction surgery History of tonsillectomy Hx of breast biopsy delivery delivered Social History Smoking Status: Never smoker alcohol intake: never substance use type: does not use caffeine: Yes what type of physical activity do you participate in: none seatbelt use: always do you feel safe at home: Yes 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 Physical Exam Const alert, oriented x3 and average body habitus Resp normal respiratory effort, normal air movement and clear to auscultation bilaterally Cardio regular rate, regular rhythm, no murmurs and diaphoretic
--- NOTE | 2024-09-29 11:55 | HP.PCM_ITS ---
History and Physical Date of Admission: 09/29/24 Intake Vital Signs 08/24/2512:12 09/22/2509:52 09/22/2509:52 Height 5 ft 1 in 5 ft 1 in 5 ft 1 in Weight: 198 lb 4 oz 202 lb BMI 37.4 38.1 BP 120/79 145/85 H Intake Visit Reasons: D&C possible myomectomy Bioprocessing Manufacturing Technician Required: No Is patient in pain?: No Allergies No Known Allergies Allergy (Verified 09/22/24 10:47) Medications ?Medication ?Instructions ?Recorded ?Confirmed ?Type biotin 1 mg capsule 1 mg PO QDAY 08/24/24 09/22/24 History cholecalciferol (vitamin D3) 50 50 mcg PO QDAY 08/24/24 09/22/24 History mcg (2,000 unit) capsule fexofenadine 180 mg tablet 180 mg PO DAILY 09/15/24 09/22/24 Histor y (Clari Allergy) lisinopril 10 mg tablet 10 mg PO DAILY 09/15/24 09/22/24 History meloxicam 7.5 mg tablet 7.5 mg PO DAILY 09/15/24 09/22/24 Histor y Post menopausal: No Patient : No : No PFSH Medical History Post-menopausal Non-smoker Seasonal allergies Hypertension Surgical History History of hysteroscopy Hx of bilateral breast reduction surgery History of tonsillectomy Hx of breast biopsy delivery delivered Family History Mother HypertensionFather Hypertension Cancer prostate- remission Grandfather Heart diseaseGrandmother Heart disease Social History Smoking Status: Never smoker alcohol intake: never substance use type: does not use caffeine: Yes what type of physical activity do you participate in: none seatbelt use: always do you feel safe at home: Yes 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 She is status post D&C in 2022 and the endometrium upon exam was seen to be atrophic. She returns today with a history of a 1 week long episode of needing to wear a pad. ultrasound now shows a 7.1mm endometrium and possible fi broid in the endometrium. She is scheduled for a hysteroscopy D&C on 09/29/24. She is status post a breast reduction in July and healing well. History 2 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 Date Name GA/Weeks Outcome Route Bth Weight Infant Gen Labor Lgth Anesthesia Del Locatn Provider FOB Unknown 1993 Emily live - full term C-s ection Unknown Thong live - full term C-secti on ROS Const ROS Unobtainable: All systems reviewed & are unremarkable except as noted in H Resp Resp: Reports system reviewed and no additional complaints, except as documented; Denies cough GI GI: Reports as per HPI Psych Psych: Reports system reviewed and no additional complaints, except as documented Exam Const General: cooperative, healthy appearing, comfortable and no acute distress Resp Effort & Inspection: normal respiratory effort Skin General: no rashes or lesions noted Psych Appearance: grossly normal Speech and Movement: speech and movement normal Coding Level of Care Code Off vis,est,level 4 Diagnoses Fibroid uterus D25.9 Postmenopausal bleeding N95.0 Assessment and Plan Assessment and Plan (1) Fibroid uterus: Status: Acute (2) Postmenopausal bleeding: Status: Acute Comment: post evaluation Plan After discussing the patient's diagnosis and treatment plan options, patient wishes to proceed with surgical management. I have discussed with the patient the risks, benefits, and alternatives of the procedure which include but are not limited to risks of anesthesia, bleeding, infection, possible damage to bowel, bladder, or surrounding vasculature which could lead to additional surgery to evaluate any complications. Patient agrees to procedure and wishes to proceed. ACOG/uptodate references given for additional information regarding procedure. plan hysteroscopy dilation and curettage, possible myomectomy
--- NOTE | 2024-09-29 12:10 | EMB_PTH ---
PATIENT: QUINTEN KRISHNAN LOC: [facility] [place] U#:[id number] AGE/SX: 59/F ROOM: RE09/29/[address]: Dr. Mari Hensley DO : 1965 BED: DIS: 09/29/2024 SPEC #: [id number] RECD: 09/30/24 10:39 STATUS: KENDALL RESarmad #: [id number] LORE: 09/29/24 12:[address]: Mari Hensley DEPT: SURGICAL PATHOLOGY RECD BY: Tono Perez ENTERED: 09/30/24 10:39 SP TYPE: ENDOM BX/C OTHR DR: Dr. Anival Flower MD Tissues: Endometrium, NOS Procedures: Immunohistochemical Stains Surgery Specimen Level IV IHC Stain ADDITIONAL HEADER OPERATION: Hysteroscopy, D&C PRE-OP DIAGNOSIS: Fibroid uterus, postmenopausal bleeding TISSUE SUBMITTED: Endometrial curettings MICROSCOPIC DIAGNOSIS Endometrium, curettage: * Atrophic endometrium with stromal breakdown - see Comment. COMMENT In addition to the atrophic endometrium (correlating with the direct observation and impression at the time of surgery) there is a tiny fragment of distinctly different tissue that is positive for p16 and ER with wild type p53 and negative CEA. This immunophenotype along with the histologic appearance resembles an endometrial tumor from a different patient which was received from Dr Hensley's office on the same day. Given this patient's history (Juana Krishnan) and the appearance of the endometrium and the atrophic histology of the background endometrium, this aberrant tissue is strongly favored to represent a contaminant from the other patient's specimen (possibly occurring during grossing or embedding). This finding was discussed with Dr Hensley on 10/20/24. Appropriate follow up with repeat sampling if the patient's symptoms should persist/progress is recommended. The slides/images were also reviewed in intradepartmental consultation by Dr Jaswinder Macdonald (SUPERVISOR COLOR MAKING pathology division, [facility]) who concurs with the findings and interpretation. MICROSCOPIC DESCRIPTION Slides are reviewed. These tests were developed and their performance characteristics determined by [facility]. They may not have been cleared or approved by the U.S. Food and Drug Administration. The FDA has determined that such clearance or approval is not necessary. The above immunohistochemical/dualISH markers are ordered and reviewed by the Pathologist. GROSS DESCRIPTION The specimen is received in one container labeled with the patient's name and designated endometrial curettings. The specimen consists of a small amount of rose-brown soft tissue on a piece of gauze. The tissue measures in aggregate 1 x 0.5 x 0.2 cm. It is scraped off and totally submitted. TE1. 09/30/24 CPT:81201, 79028, 00864g4
--- NOTE | 2024-09-29 12:32 | PCM.DC ---
Discharge Instructions Diet Discharge Diet: No restrictions DC O2, CPAP, BIPAP needs Home O2 Discharge instructions: No Dressing / Incision Discharge Activity: Return to Normal Activity, May Shower and May Take a Tub Bath (after 1 week) May resume sexual activity in: 1-2 weeks Weight Bearing Status: Weight bearing as tolerated Lifting Restrictions: none Dressing / Incision Call your doctor if you observe: Fever of 101 or Higher, Using more than 1 pad per hour, Shortness of breath and Uncontrolled pain Follow Up Care Please Follow Up With: Mari Hensley DO When: Call [phone] to schedule appointment. Test Results: Test results from this visit will be discussed in further detail at your follow-up appointment, if applicable. Discharge Plan Admission Attending Provider: Mari Hensley Primary Care Provider: Anival Flower Instructions Print Language: Moroccan Discharge Orders/Prescriptions Prescriptions: New ibuprofen 800 mg tablet 800 mg PO Q8H Qty: 3 9RF oxycodone-acetaminophen [Percocet] 5-325 mg tablet 1 tab PO Q4H PRN (Reason: pain) 3 Days Qty: 6 0RF Continued biotin 1 mg capsule 1 mg PO QDAY cholecalciferol (vitamin D3) 50 mcg (2,000 unit) capsule 50 mcg PO QDAY lisinopril 10 mg tablet 10 mg PO DAILY fexofenadine [Clari Allergy] 180 mg tablet 180 mg PO DAILY Held meloxicam 7.5 mg tablet 7.5 mg PO DAILY Hold Instructions: Resume on 10/03/24. Referrals / Follow Up: Anival Flower MD [Primary Care Provider] - Disposition Disposition (needs filled in before D/C Order can be placed): Home, Self Care
--- NOTE | 2024-09-29 12:51 | PCM.OPRPT ---
Problems Associated Problem List Diagnoses (1) Fibroid uterus: (2) Postmenopausal bleeding: Multi Select Codes Urinary/Genital Urinary/Genital CPT Codes: 22768 Hysteroscopy, diagnostic Operative Report (Standard) Operative Information Date of Procedure: 09/29/24 Pre-Operative Diagnosis: postmenopausal bleeding, ultrasound finding of possible polyp or fibroid in the endometrium Post-Operative Diagnosis: postmenopausal bleeding, ultrasound finding of possible polyp or fibroid in the endometrium Surgery/Procedure Performed: hysteroscopy dilation and curettage professor of environmental science: No Type of Anesthesia: General and MAC RN Documented Start/Stop Times: Operation Date: 09/29/24 12:10 Case Time Into Pre-Op 09/29/24 10:46 Out of Pre-Op 09/29/24 12:30 Anesthesia Start 09/29/24 12:43 Into Room 09/29/24 12:43 Procedure Start 09/29/24 13:12 Procedure End 09/29/24 13:21 Procedure Start Time: 13:12 Procedure Stop Time: 13:21 Select all DRAINS/GRAFTS/IMPLANTS that apply: None Estimated Blood Loss: 5cc Specimen collected: Yes Description of specimen(s) removed: endometrial curetting's Description of surgery: Patient was prepped and draped in a normal sterile fashion under MAC anesthesia. A weighted speculum was placed in the vagina and the anterior lip of the cervix was grasped with a single-tooth tenaculum. A paracervical block was placed with 1% lidocaine. Cervix was progressively dilated to allow passage of a 5 mm hysteroscope. The lining was fully visualized and noted to be atrophic appearing and without mass . Uterine sounded to 10 cm. Curettage was performed and scant specimen was sent to pathology. All instruments were removed from the vagina and excellent hemostasis was noted. Patient was awoken and taken to recovery in stable condition. Surgical Findings: atrophic appearing endometrium without mass or polyp Complications Complications: No Admit VTE Documentation VTE Present on Admission: No VTE Mechan Device Prophylaxis: SCD's VTE Pharm Prophylaxis ordered?: No
--- NOTE | 2024-09-29 13:43 | PCM.POST.ANE ---
Anesthesia: Postop Eval I Current Vital Signs Temperature: 97.8 F Pulse Rate: 99 Blood Pressure: 145/58 Respiratory Rate: 15 Pulse Ox: 97 Oxygen Delivery Method: Simple Mask Assessment Airway patent: Yes Spontaneous unlabored respirations: Yes Mental status: Awake nausea: No Vomiting: No Anesthesia Complication: No Fluid Hydration Crystalloid volume administer (ml): 500 Total IV fluid infused: 500 Progress Note Anesthesia document: Postop Eval 1 completed: Yes
[2024-09-29] MEDS: Ketorolac 30 MG/ML Syringe IV (14:49)
--- NOTE | 2024-09-29 17:15 | POSTOPAN2_ITS ---
Anesthesia Postop Eval I Sum Postop Eval Completion status Anesthesia document: Postop Eval 1 completed: Yes Anesthesia Postop Eval I Summary Anesthesia Postop Eval I Summary: Anesthesia Postop Eval I: Assessment Summary Airway patent Yes 09/29/24 13:44 [email or web address] Spontaneous unlabored Yes 09/29/24 13:44 PRORATE [email or web address] respirations Mental status Awake 09/29/24 13:44 PRORATE [email or web address] nausea No 09/29/24 13:44 PRORATE CLERK.[email or web address] Vomiting No 09/29/24 13:44 PRORATE CLERK.[email or web address] Anesthesia Postop Eval I: Fluid Summary Crystalloid volume administer 500 09/29/24 13:44 [email or web address] (ml) Colloids volume administered ( ml) Blood Product volume administered (ml) Total IV fluid infused 500 09/29/24 13:44 PRORATE [email or web address] Anesthesia Postop Eval I: Summary Notes Anesthesia Complication No 09/29/24 13:44 PRORATE [email or web address].[email or web address] Anesthesia Complication Comment: Post-operative progress note Anesthesia: Postop Eval II Evaluation Mental status: Awake Pain Level: 0 nausea: No Vomiting: No Complications Anesthesia Complication: No
--- NOTE | 2024-09-29 17:15 | PCM.POSTANE2 ---
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
== END 2024-09-29 15:22 | disposition home or self-care (01) ==
LOC: SDC 10:44 → AC 10:45
PROVIDERS: PCP Family Medicine; Referring Provider Obstetrics & Gynecology; Visit Provider Obstetrics & Gynecology
PROC: 0UB98ZZ Excision of Uterus, Via Natural or Artificial Opening Endoscopic (ICD-10-PCS; CPT 58558; principal; 2024-09-29 12:00)
DX: N85.8 Other specified noninflammatory disorders of uterus (principal); N95.0 Postmenopausal bleeding; I10 Essential (primary) hypertension; Z98.890 Other specified postprocedural states; Z79.899 Other long term (current) drug therapy
CPT/HCPCS: 58558; 00952; 36415; 80053; 85027; 86850; 86900; 86901; 88305; 88341; 88342; 93005; A4216; J2405

== ENCOUNTER → 2024-11-05 | Outpatient (CLI) | payer OTHER, SELFPAY ==
--- NOTE | 2024-11-05 | EMB_PTH ---
PATIENT: QUINTEN KRISHNAN LOC: [facility] U#:[id number] AGE/SX: 59/F ROOM: RE11/05/[address]: Dr. Mari Hensley DO : 1965 BED: DIS: 11/05/2024 SPEC #: [id number] RECD: 11/05/24 11:35 STATUS: KENDALL ZIMMER #: [id number] LORE: 11/05/24 00:[address]: Mari Hensley DEPT: SURGICAL PATHOLOGY RECD BY: Dinesh Zamorano ENTERED: 11/05/24 11:49 SP TYPE: ENDOM BX/C OTHR DR: Dr. Anival Flower MD Tissues: A - Endometrium, NOS Procedures: Surgery Specimen Level IV HEADER OPERATION: Endometrial biopsy PRE-OP DIAGNOSIS: Post menopausal bleeding TISSUE SUBMITTED: A- Endometrial lining MICROSCOPIC DIAGNOSIS A. Uterus, endometrial lining, biopsy: * Predominantly scant benign endocervical glandular tissue * Endometrial sampling is not identified MICROSCOPIC DESCRIPTION Slides are reviewed. GROSS DESCRIPTION A. Received in formalin in a container labeled with the patient's name, date of , and with the accompanying paperwork indicating endometrial lining are multiple rose-pink fragments of soft tissue admixed with blood and mucus measuring 2.5 x 2.3 x 0.2 cm in aggregate. Submitted in toto in A1. [facility] 11/06/2024 CPT:82021
== END | disposition home or self-care (01) ==
LOC: LABSPEC 11:18
PROVIDERS: PCP Family Medicine; Referring Provider Obstetrics & Gynecology; Visit Provider Obstetrics & Gynecology
DX: N95.0 Postmenopausal bleeding (principal)
CPT/HCPCS: 88305

== ENCOUNTER 2025-02-16 05:30 | Day surgery (SDC) | payer OTHER, SELFPAY ==
[2025-02-10 08:55] LABS: Hematocrit 43.9 % (37-47); Hemoglobin 14.3 g/dL (12.0-15.0); Immature Granulocytes Count 0.030 X10^3/uL (0.0-0.0); Mean Corp Hgb Conc 32.6 g/dL (32-36); Mean Corpuscular Volume 92.0 fL (81-99); Mean Platelet Vol. 9.1 fl (6.2-12.0); NRBC Flagged by Analyzer 0 % (0-5); Platelet Count 216 K/mm3 (150-450); RBC Distribution Width CV 13.1 % (11.6-14.6); RBC Distribution Width SD 44.2 fl (35.1-43.9); Red Blood Count 4.77 M/mm3 (4.2-5.4); White Blood Count 4.7 K/mm3 (4.4-11.0)
[2025-02-10 09:41] LABS: AST(SGOT) 23 U/L (<=31); Alanine Aminotransfer ALT/SGPT 32 U/L (<=34); Albumin, Serum 4.2 g/dL (3.5-5.0); Alkaline Phosphatase 130 U/L (35-104); Anion Gap 10 (5-15); BUN 13 mg/dL (4-19); BUN/Creat Ratio 15.8 RATIO (10-20); Calcium,Total 9.4 mg/dL (7.6-11.0); Carbon Dioxide 25.7 mmol/L (21.0-32.0); Chloride 105 mmol/L (98-108); Globulin 2.4 g/dL (2.2-4.2); Glucose 103 mg/dL (70-99); Magnesium 2.1 mg/dL (1.5-2.2); Potassium 4.7 mmol/L (3.3-5.1)
[2025-02-16] VITALS (14 sets, daily range): BP systolic 103–140; BP diastolic 56–83; PULSE 70–92; RESP 14–18; TEMP 36.1–36.6; O2SAT 80–98; BMI 38.3
--- OUTSIDE RECORDS SUMMARY | 2025-02-16 05:40 | XMS RPT_ITS | CCD ---
Author Organization [facility] Care Team Providers Care Customs Compliance Director Name Role Phone Jenifer RESIDENT SERVICE COORDINATOR, Nataliia Mix Unavailable Dr. Anival Flower Primary Care Provider Dr. Anival Flower Referring Provider Dr. Eladia Hubbard Attending Provider Dr. Eladia Hubbard Referring Provider Dr. Eladia Hubbard Other Provider Dr. Anival Flower Primary Care Provider Dr. Eladia Hubbard Attending Provider Dr. Eladia Hubbard Referring Provider Dr. Eladia Hubbard Other Provider Dr. Anival Flower Referring Provider Anival Flower MD Unavailable Nazia JEWELL, Clementina Pettit Unavailable Dianne VALENZUELAN, Elham Unavailable Ash VALENZUELAN, Lorena Pettit Unavailable Unavailable Andrae VALENZUELAN, Rona Unavailable Unavailable Pete GOMEZ, Tonya Tapia Unavailable Ariella GOMEZ, Thong Pettit Unavailable Orion VALENZUELAN, Nereida Unavailable Unavailable Michael BUSTILLOS, Tonya Eng Unavailable Unavaila ble Nadir ICT SYSTEMS TEST ENGINEER, Amilcar Unavailable Unavailable Umang ICT SYSTEMS TEST ENGINEER, Maricarmen K Unavailable Unavai yandel Perez LPN, Huong L Unavailable Unavailab trae Moncada LPN, Ana Paula Brenner Unavailable Unavailab trae Mckinnon MD, Ole Unavailable Vess ICT SYSTEMS TEST ENGINEER, Demetrioe L Unavailable Unavailable Wengerd ICT SYSTEMS TEST ENGINEER, Mari Unavailable Unavailabl e Zaugg ICT SYSTEMS TEST ENGINEER, Elise Unavailable Unavailable Unavailable Unavailable Unavailable Unavailable Mundo JEWELL, Dr. Florian Primary Care Provider Idris JEWELL, Dr. Montilla Attending Provider Idris JEWELL, Dr. Montilla Referring Provider Mundo JEWELL, Dr. Florian Referring Provider Dora Springer DO, Dr. Guerra Attending Provider Franca JEWELL, Dr. Downs Attending Provider Dora Springer DO, Dr. Guerra Referring Provider Dora Springer DO, Dr. Guerra Other Provider Mundo JEWELL, Dr. Florian Primary Care Provider Mundo JEWELL, Dr. Florian Referring Provider Dora Springer DO, Dr. Guerra Attending Provider Dora Springer DO, Dr. Guerra Referring Provider Eladia Hubbard Attending Unavailable Eladia Hubbard Referring Unavailable Mundo, Anival Primary Care Unavailable Vande Velde, Mari Attending Unavailabl e Anival Flower Referring Unavailable Mundo, Anival Primary Care Unavailable Vande Velde, Mari Attending Unavailabl e Brown, Anival Referring Unavailable Mundo, Anival Primary Care Unavailable Mundo, [place] [facility] Unavailable Vande Velde, Mari Attending Unavailabl e Vande Velde, Mari Referring Unavailabl e Vande Velde, Mari Referring Unavailabl e Vande Velde, Mari Attending Unavailabl e Mundo, Anival Primary Care Unavailable Vande Velde, Mari Referring Unavailabl e Vande Velde, Mari Attending Unavailabl e Mundo, Anival Primary Care Unavailable Vande Velde, Mari Attending Unavailabl e Mundo, Anival Referring Unavailable Mundo, Anival Primary Care Unavailable Mundo, [place] Primary Care Unavailable Himanshu Schulte Attending Unavailable Vande Velde, Mari Referring Unavailabl e Vande Velde, Mari Attending Lavern Hensley, Mari Referring Unavailchaparrita e Mari Hensley Consulting Anival Cobb Primary Care Unavailable Mundo, Anival Primary Care Unavailable Dora Springer, Mari Attending Lavern Flower, Anival Referring Unavailable Mari Hensley Attending Anival Cobb Referring Unavailable Mundo, Anival Primary Care Unavailable Mundo, Anival Primary Care Unavailable Mari Hensley Attending Lavern Flower, Anival Referring Unavailable Allergies Allergy Classification Reported Allergen(s) Allergy Type Date of Onset Reaction(s) Facility Quinolones (antibiotic) (2 sources) levoFLOXacin Drug Allergy [facility] (20 sources) levoFLOXacin Drug Allergy [facility] Medications Current Medications Medication Drug Class(es) Dates Sig (Normalized) Sig (Original) biotin 1 mg oral capsule (3 sources) Start: 08-24-2024 take 1 capsule by mouth once daily Biotin 1 mg capsule Active 1 mg PO daily August 24, 2024 1:00am budesonide 0.032 mg/actuat metered dose nasal spray (20 sources) Corticosteroid Start: 01-14-2025 take 2 spray(s) nasal route once budesonide 32 mcg/actuation nasal spray ; 2 (two) [place] per nostril qd for 0 days Quantity: 1 {Each} Refills: 5 Ordered: 14-Jan-2025 MD Anival Flower Start: 14-Jan-2025 Comments: dispense nasal inhaler Start: 05-16-2023 take 2 spray(s) nasa l route once budesonide 32 mcg/actuation nasal spray ; 2 (two) [place] per nostril qd for 0 days Quantity: 1 {Each} Refills: 5 Ordered: 16-May-2023 MD Anival Flower Start: 16-May-2023 Comments: dispense nasal inhaler Start: 12-24-2019 End: 01-27-2021 Budesonide (Rhinocort Allerg y) 32 mcg/actuation spray,non-aerosol Discontinued 1 NMA INTRANASAL DAILY December 24, 2019 12:00am January 27, 2021 8:52am administer into each nostril Start: 12-24-2019 End: 01-27-2021 take 1 spray(s) nasal route once daily Budesonide (Rhinocort Allergy) 32 mcg/actuation spray,non-aerosol Discontinued 1 SPRAY INTRANASAL DAILY December 23, 2019 11:00pm January 27, 2021 7:52am administer into each nostril Start: 05-22-2017 End: 03-26-2018 take 2 spray(s) nasal route once daily Rhinocort Aqua 32 MCG/ACT Nasal Suspension ; 2 sprays to each nostril once daily for 0 days Quantity: 1 {Bottle} Refills: 5 Ordered: 22-May-2017 MD Anival Flower Start: 22-May-2017 End: 26-Mar-2018 Status: Discontinued Comments: This order discontinued per [facility]. Comment on above: dispense nasal inhal er This order discontin ued per [facility]. cholecalciferol 0.05 mg oral capsule (3 sources) Vitamin D Start: 025 take 1 capsule by mouth once daily Cholecalciferol (Vitamin D3) 50 mcg (2,000 unit) capsule Active 50 ug PO daily August 24, 2024 1:00am erythromycin 0.005 mg/mg ophthalmic ointment (20 sources) Macrolide, Macrolide Antimicrobial Start: 025 erythromycin 5 mg/gram (0.5 %) eye ointment ; apply Ointment tid for 0 days Quantity: 1 {Packet} Refills: 0 Ordered: 06-Jan-2025 MD Anival Flower Start: 06-Jan-2025 Start: 01-07-2024 End: 10-20-2024 erythromycin 5 mg/gram (0.5 %) eye ointment ; apply Ointment tid for 0 days Quantity: 1 {Packet} Refills: 0 Ordered: 20-Oct-2024 FRANK Sears Start: 07-Jan-2024 End: 20-Oct-2024 Status: Inactive Start: 07-30-2022 End: 05-15-2023 erythromycin 5 mg/gram (0.5 %) eye ointment ; apply Ointment tid for 0 days Quantity: 1 {Packet} Refills: 0 Ordered: 15-May-2023 FRANK Schmitz Start: 30-Jul-2022 End: 15-May-2023 Status: Inactive fexofenadine hydrochloride 180 mg oral tablet (20 sources) Histamine-1 Receptor Antagonist Start: 03-26-2024 Clari Allergy 180 mg tablet ; 1 (one) Tablet qd for 0 days Quantity: 90 {Tablet} Refills: 3 Ordered: 26-Mar-2024 MD Anival Flower Start: 26-Mar-2024 Start: 04-29-2023 Clari Allerg y 180 mg tablet ; 1 (one) Tablet qd for 0 days Quantity: 90 {Tablet} Refills: 3 Ordered: 29-Apr-2023 MD Anival Flower Start: 29-Apr-2023 Start: 12-24-2019 End: 01-27-2021 take 1 tablet by mouth once daily Fexofenadine (Clari Allergy) 180 mg tablet Discontinued 180 mg PO DAILY December 24, 2019 12:00am January 27, 2021 8:52am Start: 04-30-2017 CLARI ALLERG Y 180 MG TABS FEXOFENADINE HCL [id number] Nataliia Burgess RESIDENT SERVICE COORDINATOR fluconazole 150 mg oral tablet (20 sources) Azole Antifungal Start: 01-25-2025 Diflucan 150 mg tablet ; 1 Tab Q 72 hours until symptom resolution for 1 days Quantity: 3 {Tablet} Refills: 2 Ordered: 25-Jan-2025 MD Aniavl Flower Start: 25-Jan-2025 Start: 02-24-2024 End: 01-06-2025 Diflucan 150 mg tablet ; 1 T ab Q 72 hours until symptom resolution for 1 days Quantity: 3 {Tablet} Refills: 2 Ordered: 06-Jan-2025 FRANK Schmitz Start: 24-Feb-2024 End: 06-Jan-2025 Status: Inactive Start: 10-07-2023 Diflucan 150 m g tablet ; 1 Tab Q 72 hours until symptom resolution for 1 days Quantity: 3 {Tablet} Refills: 2 Ordered: 07-Oct-2023 MD Anival Flower Start: 07-Oct-2023 Start: 09-05-2023 Diflucan 150 m g tablet ; 1 Tab Q 72 hours until symptom resolution for 1 days Quantity: 3 {Tablet} Refills: 2 Ordered: 05-Sep-2023 MD Anival Flower Start: 05-Sep-2023 Start: 12-17-2021 End: 05-15-2023 Diflucan 150 mg tablet ; 1 T ab Q 72 hours until symptom resolution for 1 days Quantity: 3 {Tablet} Refills: 2 Ordered: 15-May-2023 FRANK Schmitz Start: 17-Dec-2021 End: 15-May-2023 Status: Inactive Start: 03-18-2017 End: 03-25-2017 take 1 tablet by mouth once daily Diflucan 100 MG Oral Tablet ; 1 Tablet daily for 7 days Quantity: 7 {Tablet} Refills: 0 Ordered: 18-Mar-2017 MD Anival Flower Start: 18-Mar-2017 End: 25-Mar-2017 Status: Inactive Start: 08-25-2011 End: 08-26-2011 take 1 tablet by mouth once daily FLUCONAZOLE, 150MG (Oral Tablet) ; 1 Tablet daily for 1 days Quantity: 1 {Tablet} Refills: 0 Ordered: 25-Aug-2011 MD Clementina Mandujano Start: 25-Aug-2011 End: 26-Aug-2011 Status: Inactive lisinopril 10 mg oral tablet (20 sources) Angiotensin Converting Enzyme Inhibitor Start: 09-15-2024 lisinopriL 10 mg tablet ; 1 Tablet qd for 0 days Quantity: 90 {Tablet} Refills: 1 Ordered: 08-Oct-2024 MD Anival Flower Start: 08-Oct-2024 Start: 01-27-2021 End: 08-24-2024 take 1 tablet by mouth at bedtime Lisinopril 10 mg tablet Discontinued 10 mg PO AT BEDTIME January 27, 2021 12:00am August 24, 2024 2:13pm Start: 12-24-2019 End: 01-27-2021 take 1 tablet by mouth once daily Lisinopril 5 mg tablet Discontinued 5 mg PO DAILY December 24, 2019 12:00am January 27, 2021 8:53am meloxicam 7.5 mg oral tablet (20 sources) Nonsteroidal Anti-inflammatory Drug Start: 04-02-2024 meloxicam 7.5 mg tablet ; 1 (one) tablet qd for 0 days Quantity: 90 {Tablet} Refills: 1 Ordered: 09-Oct-2024 FRANK Schmitz Start: 09-Oct-2024 Completed/Discontinued Medications Medication Drug Class(es) Dates Sig (Normalized) Sig (Original) acetaminophen 325 mg / oxyCODONE hydrochloride 5 mg oral tablet (3 sources) Opioid Agonist Start: 09-29-2024 End: 10-20-2024 Oxycodone-Acetamin ophen (Percocet) 5-325 mg tablet Discontinued 1 {tbl} PO Q4H as needed for pain 6 3 0 September 29, 2024 October 20, 2024 9:36am Uterine leiomyoma Leiomyoma of uterus, unspecified [id number] actuat albuterol 0.09 mg/actuat metered dose inhaler (20 sources) beta2-Adrenergic Agonist Start: 01-04-2012 End: 09-22-2018 take 2 puff(s) by inhalation every four to six hours as needed Ventolin HFA 108 (90 Base) MCG/ACT Inhalation Aerosol Solution ; 2 (two) puff(s) every 4-6hrs prn for 0 days Quantity: 1 {Inhaler(s)} Refills: 0 Ordered: 22-Sep-2018 Start: 04-Jan-2012 End: 22-Sep-2018 Status: Inactive amoxicillin 875 mg / clavulanate 125 mg oral tablet (20 sources) Penicillin-class Antibacterial Start: 02-24-2024 End: 03-05-2024 amoxicillin 875 mg-potassium clavulanate 125 mg tablet ; 1 (one) Tablet two times daily for 10 days Quantity: 20 {Tablet} Refills: 0 Ordered: 24-Feb-2024 MD Anival Flower Start: 24-Feb-2024 End: 05-Mar-2024 Status: Inactive Start: 10-10-2023 End: 10-20-2023 amoxicillin 875 mg-potassium clavulanate 125 mg tablet ; 1 (one) Tablet two times daily for 10 days Quantity: 20 {Tablet} Refills: 0 Ordered: 10-Oct-2023 MD Anival Flower Start: 10-Oct-2023 End: 20-Oct-2023 Status: Inactive Start: 08-21-2021 End: 08-31-2021 take 1 tablet by mouth twice daily Amoxicillin-Pot Clavulanate 875-125 MG Oral Tablet ; 1 (one) Tablet two times daily for 10 days Quantity: 20 {Tablet} Refills: 0 Ordered: 21-Aug-2021 MD Anival Flower Start: 21-Aug-2021 End: 31-Aug-2021 Status: Inactive Start: 04-30-2017 AUGMENTIN 875- 125 MG TABS sinus infection AMOXICILLIN-POT CLAVULANATE [id number] Nataliia Burgess RESIDENT SERVICE COORDINATOR aspirin 81 mg delayed release oral tablet (1 source) Platelet Aggregation Inhibitor, Nonsteroidal Anti-inflammatory Drug Start: 04-30-2017 ASPIR-LOW 81 MG T BEC ASPIRIN [id number] Nataliia Burgess RESIDENT SERVICE COORDINATOR Start: 04-30-2017 ASPIR-LOW 81 M G TBEC ASPIRIN [id number] Nataliia Burgess RESIDENT SERVICE COORDINATOR azithromycin 250 mg oral tablet (20 sources) Macrolide Antimicrobial Start: 10-21-2024 End: 10-26-2024 azithromycin 250 mg tablet ; 2 (two) tablet today then 1 qd x 4 days for 5 days Quantity: 5 {Tablet} Refills: 0 Ordered: 21-Oct-2024 MD Anival Flower Start: 21-Oct-2024 End: 26-Oct-2024 Status: Inactive Start: 11-28-2022 End: 12-01-2022 take 1 tablet by mouth once daily Azithromycin 500 MG Oral Tablet ; 1 (one) Tablet qd for 3 days Quantity: 3 {Tablet} Refills: 0 Ordered: 28-Nov-2022 MD Anival Flower Start: 28-Nov-2022 End: 01-Dec-2022 Status: Inactive Start: 01-14-2012 End: 06-20-2013 ZITHROMAX Z-BRITTNEY, 250MG (Oral Tablet) ; 2 (two) Tabs day one, then one daily for 4 days for 0 days Quantity: 1 {Z-pack} Refills: 0 Ordered: 20-Jun-2013 MD Anival Flower Start: 14-Jan-2012 End: 20-Jun-2013 Status: Inactive benzonatate 100 mg oral capsule (20 sources) Non-narcotic Antitussive Start: 10-07-2023 End: 01-06-2025 benzonatate 100 mg capsule ; 1 (one) capsule tid prn cough for 0 days Quantity: 30 {Capsule} Refills: 0 Ordered: 06-Jan-2025 FRANK Schmitz Start: 21-Oct-2024 End: 06-Jan-2025 Status: Inactive Start: 07-14-2022 End: 05-15-2023 take 1 capsule by mouth three times daily as needed for cough Tessalon Perles 100 MG Oral Capsule ; 1 (one) capsule three times daily as needed for cough for 0 days Quantity: 30 {Capsule} Refills: 1 Ordered: 14-Jul-2022 NadirFRANK Amilcar Start: 14-Jul-2022 End: 15-May-2023 Status: Discontinued Comments: Medication taken as needed. Discontinued by Medication vendor. Comment on above: Medication taken as needed. Discontinued by Medication vendor. cefdinir 300 mg oral capsule (20 sources) Cephalosporin Antibacterial Start: 06-16-2024 End: 06-26-2024 cefdinir 300 mg capsule ; 1 (one) Capsule twice daily for 10 days Quantity: 20 {Capsule} Refills: 0 Ordered: 16-Jun-2024 MD Anival Flower Start: 16-Jun-2024 End: 26-Jun-2024 Status: Inactive Start: 03-12-2024 End: 03-22-2024 cefdinir 300 mg capsule ; 1 (one) Capsule twice daily for 10 days Quantity: 20 {Capsule} Refills: 0 Ordered: 12-Mar-2024 MD Anival Flower Start: 12-Mar-2024 End: 22-Mar-2024 Status: Inactive Start: 07-05-2022 End: 07-15-2022 take 1 capsule by mouth twice daily Cefdinir 300 MG Oral Capsule ; 1 (one) Capsule twice daily for 10 days Quantity: 20 {Capsule} Refills: 0 Ordered: 05-Jul-2022 MD Anival Flower Start: 05-Jul-2022 End: 15-Jul-2022 Status: Inactive cefuroxime 500 mg oral tablet (20 sources) Cephalosporin Antibacterial Start: 06-11-2017 End: 06-21-2017 take 1 tablet by mouth twice daily Cefuroxime Axetil 500 MG Oral Tablet ; 1 (one) Tablet twice daily for 10 days Quantity: 20 {Tablet} Refills: 0 Ordered: 11-Jun-2017 PATRICIA Freeman Start: 11-Jun-2017 End: 21-Jun-2017 Status: Inactive cephalexin 500 mg oral capsule (20 sources) Cephalosporin Antibacterial Start: 10-07-2023 End: 10-17-2023 cephALEXin 500 mg capsule ; 2 (two) Capsule bid for 10 days Quantity: 40 {Capsule} Refills: 0 Ordered: 07-Oct-2023 Start: 07-Oct-2023 End: 17-Oct-2023 Status: Inactive Start: 05-01-2017 End: 05-08-2017 take 2 capsules by mouth twice daily Cephalexin 500 MG Oral Capsule ; 2 (two) Capsule bid for 10 days Quantity: 40 {Capsule} Refills: 0 Ordered: 08-May-2017 PATRICIA Freeman Start: 01-May-2017 End: 08-May-2017 Status: Inactive cetirizine hydrochloride 10 mg oral tablet (20 sources) Histamine-1 Receptor Antagonist Start: 11-22-2011 End: 09-22-2018 take 1 tablet by mouth once daily as needed Cetirizine HCl 10 MG Oral Tablet ; 1 (one) Tablet qd prn allergies for 0 days Quantity: 30 {Tablet} Refills: 3 Ordered: 22-Sep-2018 Start: 22-Nov-2011 End: 22-Sep-2018 Status: Inactive codeine phosphate 2 mg/ml / promethazine hydrochloride 1.25 mg/ml oral solution (20 sources) Opioid Agonist, Phenothiazine Start: 06-11-2019 End: 03-12-2020 take 5 mL by mouth every six hours as needed for cough Promethazine-Code ine 6.25-10 MG/5ML Oral Solution ; 5 Milliliter q6h, prn cough for 0 days Quantity: 120 {Milliliter} Refills: 0 Ordered: 12-Mar-2020 FRANK Moncada Ana Paula Brenner Start: 11-Jun-2019 End: 12-Mar-2020 Status: Inactive fexofenadine / Pseudoephedrine (5 sources) alpha-Adrenergic Agonist, Histamine-1 Receptor Antagonist Start: 04-08-2023 End: 08-24-2024 Fexofenadine-Pseu doephedrine (24hr Allergy-Congestio n Relief) 180-240 mg tablet extended release 24 hr Discontinued 1 {tbl} PO DAILY April 08, 2023 12:00am August 24, 2024 2:13pm Start: 04-08-2023 Fexofenadine-P seudoephedrine (24hr Allergy-Congestion Relief) 180-240 mg tablet extended release 24 hr Active 1 TABLET PO DAILY April 07, 2023 11:00pm Start: 04-08-2023 Fexofenadine-P seudoephedrine (24hr Allergy-Congestion Relief) 180-240 mg tablet extended release 24 hr Active 1 TABLET PO DAILY April 08, 2023 12:00am fluticasone propionate 0.05 mg/actuat metered dose nasal spray (20 sources) Corticosteroid Start: 04-30-2017 FLONASE 50 MCG /ACT SUSP FLUTICASONE PROPIONATE [id number] Nataliia Burgess RESIDENT SERVICE COORDINATOR Start: 01-28-2012 End: 03-26-2018 take 2 spray(s) nasal route once daily Fluticasone Propionate 50 MCG/ACT Nasal Suspension ; 2 (two) sprays each nostril daily for 30 days Quantity: 1 {bottle(s)} Refills: 5 Ordered: 26-Mar-2018 MD Anival Flower Start: 28-Jan-2012 End: 26-Mar-2018 Status: Inactive ibuprofen 800 mg oral tablet (3 sources) Nonsteroidal Anti-inflammatory Drug Start: 09-29-2024 End: 10-20-2024 take 1 tablet by mouth every eight hours Ibuprofen 800 mg tablet Discontinued 800 mg PO Q8H 3 September 29, 2024 12:00am October 20, 2024 9:36am pain levoFLOXacin 500 mg oral tablet (20 sources) Quinolone Antimicrobial Start: 05-26-2020 End: 06-01-2020 take 1 tablet by mouth once daily Levaquin 500 MG Oral Tablet ; 1 Tablet daily for 10 days Quantity: 10 {Tablet} Refills: 0 Ordered: 01-Jun-2020 PATRICIA Freeman Start: 26-May-2020 End: 01-Jun-2020 Status: Inactive miSOPROStol 0.2 mg oral tablet (5 sources) Prostaglandin E1 Analog Start: 04-05-2023 End: 08-24-2024 Misoprostol (Cytotec) 200 mcg tablet Discontinued 200 ug PO .complex 2 April 05, 2023 12:00am August 24, 2024 2:13pm take the night before and two hours prior to the procedure MULTIPLE VITAMINS-MINERALS (1 source) Start: 04-30-2017 MULTIVITAMIN WOMEN 50+ TABS MULTIPLE VITAMINS-MINERALS [id number] Nataliia Burgess RESIDENT SERVICE COORDINATOR nystatin 100 unt/mg topical powder (20 sources) Polyene Antifungal Start: 01-09-2024 End: 01-06-2025 nystatin 100,000 unit/gram topical powder ; 1 (one) Application tid prn yeast rash for 0 days Quantity: 60 {Gram} Refills: 3 Ordered: 06-Jan-2025 MD Anival Flower Start: 09-Jan-2024 End: 06-Jan-2025 Status: Inactive omeprazole 20 mg delayed release oral capsule (20 sources) Proton Pump Inhibitor Start: 03-09-2024 End: 04-08-2024 omeprazole 20 mg capsule,delayed release ; 1 (one) capsule qd for 30 days Quantity: 30 {Capsule} Refills: 0 Ordered: 09-Mar-2024 MD Anival Flower Start: 09-Mar-2024 End: 08-Apr-2024 Status: Inactive ondansetron 4 mg oral tablet (20 sources) Serotonin-3 Receptor Antagonist Start: 06-12-2017 End: 06-12-2019 take 1 tablet by mouth every six hours as needed for nausea Zofran 4 MG Oral Tablet ; 1 (one) Tablet q 6hrs prn nauSEA for 0 days Quantity: 20 {Tablet} Refills: 0 Ordered: 12-Jun-2019 TRESSA Rodriguez Start: 12-Jun-2017 End: 12-Jun-2019 Status: Inactive promethazine hydrochloride 25 mg rectal suppository (20 sources) Phenothiazine Start: 10-18-2021 End: 10-23-2021 Promethazine HCl 25 MG Rectal Suppository ; 1 (one) Suppository q 6hrs prn nausea for 0 days Quantity: 10 {Suppository} Refills: 0 Ordered: 23-Oct-2021 FRANK Moncada Darleen Start: 18-Oct-2021 End: 23-Oct-2021 Status: Inactive Rhinocort Allergy (5 sources) Start: 04-16-2023 End: 08-24-2024 Rhinocort Allergy Discontinued 1 NMA NASAL AT BEDTIME April 16, 2023 12:00am August 24, 2024 2:13pm ALLERGIES Start: 04-16-2023 End: 08-24-2024 Rhinocort Allergy Discontinu ed 1 NMA NASAL AT BEDTIME April 16, 2023 12:00am August 24, 2024 2:13pm Start: 04-16-2023 Rhinocort Micah rgy Active 1 SPRAY NASAL AT BEDTIME April 15, 2023 11:00pm Start: 04-16-2023 Rhinocort Micah rgy Active 1 SPRAY NASAL AT BEDTIME April 16, 2023 12:00am sulfamethoxazole 800 mg / trimethoprim 160 mg oral tablet (20 sources) Dihydrofolate Reductase Inhibitor Antibacterial, Sulfonamide Antimicrobial Start: 09-26-2011 End: 10-06-2011 take 1 tablet by mouth twice daily BACTRIM DS, 800-160MG (Oral Tablet) ; 1 Tab two times daily for 10 days Quantity: 20 {Tab} Refills: 0 Ordered: 26-Sep-2011 MD Anival Flower Start: 26-Sep-2011 End: 06-Oct-2011 Status: Inactive triamcinolone acetonide 1 mg/ml topical cream (20 sources) Corticosteroid Start: 11-07-2018 End: 10-17-2021 Triamcinolone Acetonide 0.1 % External Cream ; 1 (one) Application(s) two times daily for 0 days Quantity: 80 {Gram} Refills: 5 Ordered: 17-Oct-2021 FRANK Moncada Ana Paula Brenner Start: 07-Nov-2018 End: 17-Oct-2021 Status: Inactive CHOLECALCIFEROL (1 source) Start: 04-30-2017 VITAMIN D 1000 UNIT TABS CHOLECALCIFEROL [id number] Nataliia Burgess RESIDENT SERVICE COORDINATOR Problems Active Problems Problem Classification Problem Date Documented Date Episodic/Chronic Administrative/social admission (20 sources) Issue of repeat prescriptions 06-11-2017 Episodic Benign neoplasm of uterus (13 sources) Uterine leiomyoma; Translations: [Leiomyoma of uterus, unspecified] Onset: 02-02-2025 08-24-2024 Episodic Chronic obstructive pulmonary disease and bronchiectasis (20 sources) Bronchitis; Translations: [Bronchitis, not specified as acute or chronic] 05-15-2023 Episodic Essential hypertension (20 sources) Hypertensive disorder; Translations: [Essential (primary) hypertension] Onset: 02-02-2025 12-24-2019 Chronic Menopausal disorders (20 sources) Abnormal perimenopausal bleeding; Translations: [Excessive bleeding in the premenopausal period] Onset: 02-02-2025 03-31-2020 Chronic Comment on above: post evaluation Menstrual disorders (10 sources) Disorder of menstruation; Translations: [Irregular menstruation, unspecified] 03-18-2023 Chronic Comment on above: perimenopausal, revi ewed precautions, ordered labs and US Mycoses (20 sources) Candidiasis of skin; Translations: [Candidiasis of skin and nail] 01-09-2024 Episodic Nausea and vomiting (20 sources) Nausea; Translations: [Nausea] 10-18-2021 Episodic Open wounds of extremities (20 sources) Laceration of knee; Translations: [Laceration without foreign body, unspecified knee, initial encounter] 06-12-2019 Episodic Osteoarthritis (20 sources) Degenerative joint disease of thumb; Translations: [Primary osteoarthritis, unspecified hand] 05-15-2023 Chronic Other aftercare (20 sources) Long-term (current) use of other medications 12-12-2011 Episodic Other connective tissue disease (20 sources) Plantar fasciitis; Translations: [Plantar fascial fibromatosis] 02-18-2013 Episodic Other female genital disorders (8 sources) Stenosis of cervix; Translations: [Stricture and stenosis of cervix uteri] 03-31-2020 Episodic Comment on above: would need cytotec p rior to d and c if needs surgery Other female genital disorders (7 sources) Stricture and stenosis of cervix uteri; Translations: [Stricture and stenosis of cervix] 03-18-2023 Episodic Other injuries and conditions due to external causes (20 sources) Injury of right wrist; Translations: [Unspecified injury of right wrist, hand and finger(s), initial encounter] 04-24-2021 Episodic Other lower respiratory disease (20 sources) Cough; Translations: [Cough] 05-15-2023 Episodic Other non-traumatic joint disorders (20 sources) Ankle pain; Translations: [Pain in right ankle and joints of right foot] 09-11-2011 Episodic Other screening for suspected conditions (not mental disorders or infectious disease) (20 sources) Patient encounter status; Translations: [Encounter for screening for respiratory tuberculosis] 08-24-2019 Episodic Other upper respiratory disease (20 sources) Allergic rhinitis due to pollen; Translations: [Allergic rhinitis due to pollen] 11-05-2018 Chronic Other upper respiratory infections (20 sources) Sinusitis; Translations: [Chronic sinusitis, unspecified] 11-28-2022 Chronic Otitis media and related conditions (20 sources) Dysfunction of eustachian tube; Translations: [Unspecified Eustachian tube disorder, unspecified ear] 05-15-2023 Episodic Residual codes; unclassified (20 sources) Personal history of other specified conditions; Translations: [Unspecified problems with limbs and other problems] 11-11-2013 Episodic Spondylosis; intervertebral disc disorders; other back problems (7 sources) Chronic pain; Translations: [Cervicalgia] 01-27-2021 Episodic Comment on above: considering breast r eduction Unclassified (20 sources) Unspecified Diagnosis 06-26-2010 Unclassified (20 sources) Follow up for chronic condition - The patient is here for follow-up of hypertension. The patient always takes the prescribed medications. No side effects noted. The patient has an active lifestyle but no regular exercise program. The patient's out of office blood pressure checks occur occasionally (Has BP readings). The patient states that the disease has no overall impact. Note for Chronic condition follow-up: c/o DJD of hands and feet. Notes less hand strength. Use Tylenol at night. Aleve in AM 05-15-2023 Unclassified (20 sources) Follow Up for Multiple Chronic Conditions - The patient is here for follow-up of hypertension. The patient always takes the prescribed medications. No side effects noted (increased Lisinopril fro 5mg to 10mg.). The patient engages in regular exercise program 1-3 times per week (walks). The patient's out of office blood pressure checks occur frequently (Last home BP118/85). The patient states that there is no recent angina or dyspnea and headaches are rarely noted. Note for Multiple chronic conditions follow-up: reviewed by [facility] 10-23-2021 Unclassified (20 sources) Follow Up for Multiple Chronic Conditions - The patient is here for follow-up of hypertension. The patient always takes the prescribed medications. No side effects noted. The patient engages in regular exercise program 3-5 times per week (walks). The patient's out of office blood pressure checks occur occasionally. The patient states that there is no recent angina or dyspnea and headaches are rarely noted. 03-12-2020 Unclassified (4 sources) Follow up for chronic condition - The patient is here for follow-up of hypertension. The patient always takes the prescribed medications. No side effects noted. The patient engages in regular exercise program 1-3 times per week. The patient's out of office blood pressure checks occur occasionally (WNL at home). The patient states that they do not have headaches. Note for Chronic condition follow-up: reviewed by [facility] 01-06-2025 Past or Other Problems Problem Classification Problem Date Documented Da te Episodic/Chronic Unclassified (20 sources) Cold Symptoms - Symptoms include nasal congestion, runny nose, sore throat (post nasal drainage), dry cough (productive this morning, chest hurts), fever (low grade), chills, headache and facial pain (sinus pain and pressure). The onset was 1 week(s) ago. The symptoms occur constantly. The patient describes this as worsening. Current treatment includes non-prescription cold medication ([employer], coricidin), allergy medications, cough suppressants (prescription cough syrup), acetaminophen and Rhinocort. Note for Upper respiratory infection: reviewed by B 06-12-2019 Unclassified (20 sources) Knee Laceration - Fell this morning and lacerated right knee. 03-06-2017 Unclassified (20 sources) Increased Blood Pressure - Has had an increase in blood pressure over the past several months. Has a family history of hypertension. No complaints of headaches. No tobacco. No hx of preeclampsia. Pt has been having foot pain so has not been exercising. 04-28-2013 Unclassified (20 sources) Foot pain - The pain is in the right foot and is located in the heel. The onset of the foot pain was gradual and has been occurring in a persistent pattern for 1 month. The course has been without change. The pain is moderate. The symptoms have been associated with swelling. Note for Foot pain: reviewed by B 02-18-2013 Unclassified (20 sources) cough - Patient had cold symtoms over one week ago than started coughing. She had [facility] check her on Sat Jul and her lungs were clear. Started with cough 2 days ago and got progressively worse. It is a dry cough. Last evening she had a fever of 101.7. Patient complains of body aches and slight sore throat. 08-22-2011 Unclassified (20 sources) Cough - The onset of the cough has been gradual and has been occurring in an intermittent pattern for 2 months. The amount of sputum is scanty. There is no dysphagia. 03-09-2024 Results Test Name Value Interpretation Reference Range Facility CBC W/Diff, Automatedon 07-2 3-2024 Absolute Lymph 1.66 X10 3/uL Normal 0.83-4.51 [facility] Comment on above: Performed By: #### L 500.4050, BTSPAT, L100.0100, L501.5200 #### [facility] [address] [place], [address] Absolute Neut 2.3 X10 3/uL Normal 2.0-7.7 [facility] Comment on above: Performed By: #### L 500.4050, BTSPAT, L100.0100, L501.5200 #### [facility] [address] [place], [address] Basophils/100 WBC (Bld) 0.6 % Normal 0-1 [facility] Comment on above: Performed By: #### L 500.4050, BTSPAT, L100.0100, L501.5200 #### [facility] [address] [place], [address] Eosinophils/100 WBC (Bld) 4.7 % Normal 0-5 [facility] Comment on above: Performed By: #### L 500.4050, BTSPAT, L100.0100, L501.5200 #### [facility] [address] [place], [address] Erythrocyte distribution width (RBC) [Ratio] 13.1 % Normal 11.6-14.6 [facility] Comment on above: Performed By: #### L 500.4050, BTSPAT, L100.0100, L501.5200 #### [facility] [address] [place], [address] Hematocrit (Bld) [Volume fraction] 43.9 % Normal 37-47 [facility] Comment on above: Performed By: #### L 500.4050, BTSPAT, L100.0100, L501.5200 #### [facility] [address] [place], [address] Hemoglobin (Bld) [Mass/Vol] 14.3 g/dL Normal 12.0-15.0 [facility] Comment on above: Performed By: #### L 500.4050, BTSPAT, L100.0100, L501.5200 #### [facility] [address] [place], [address] IG% 0.600 Normal 0.0-0.9 [facility] Comment on above: Result Comment: IG% - Immature Granulocytes (promyelocytes, myelocytes and metamyelocytes) > 1% indicates that a LEFT SHIFT is Present. Performed By: #### L 500.4050, BTSPAT, L100.0100, L501.5200 #### [facility] [address] [place], [address] Lymphocytes/100 WBC (Bld) 35.5 % Normal 19-41 [facility] Comment on above: Performed By: #### L 500.4050, BTSPAT, L100.0100, L501.5200 #### [facility] [address] [place], [address] MCH (RBC) [Entitic mass] 30.0 pg Normal 27.0-32.0 [facility] Comment on above: Performed By: #### L 500.4050, BTSPAT, L100.0100, L501.5200 #### [facility] [address] [place], [address] MCHC (RBC) [Mass/Vol] 32.6 g/dL Normal 32-36 [facility] Comment on above: Performed By: #### L 500.4050, BTSPAT, L100.0100, L501.5200 #### [facility] [address] [place], [address] MCV (RBC) [Entitic vol] 92.0 fL Normal 81-99 [facility] Comment on above: Performed By: #### L 500.4050, BTSPAT, L100.0100, L501.5200 #### [facility] [address] [place], [address] Monocytes/100 WBC (Bld) 9.9 % Normal 0-10 [facility] Comment on above: Performed By: #### L 500.4050, BTSPAT, L100.0100, L501.5200 #### [facility] [address] [place], [address] Neutrophils/100 WBC (Bld) 48.7 % Normal 47-70 [facility] Comment on above: Performed By: #### L 500.4050, BTSPAT, L100.0100, L501.5200 #### [facility] [address] [place], [address] Nucleated RBC (Bld) [#/Vol] 0 10*3/uL Normal 0-5 [facility] Comment on above: Performed By: #### L 500.4050, BTSPAT, L100.0100, L501.5200 #### [facility] [address] [place], [address] Platelet mean volume (Bld) [Entitic vol] 9.1 fL Normal 6.2-12.0 [facility] Comment on above: Performed By: #### L 500.4050, BTSPAT, L100.0100, L501.5200 #### [facility] [address] [place], [address] Platelets (Bld) [#/Vol] 216 10*3/uL Normal 150-450 [facility] Comment on above: Performed By: #### L 500.4050, BTSPAT, L100.0100, L501.5200 #### [facility] [address] [place], [address] RBC (Bld) [#/Vol] 4.77 10*6/uL Normal 4.2-5.4 [facility] Comment on above: Performed By: #### L 500.4050, BTSPAT, L100.0100, L501.5200 #### [facility] [address] [place], [address] RDW SD 44.2 fl High 35.1-43.9 [facility] Comment on above: Performed By: #### L 500.4050, BTSPAT, L100.0100, L501.5200 #### [facility] [address] [place], [address] WBC (Bld) [#/Vol] 4.7 10*3/uL Normal 4.4-11.0 [facility] Comment on above: Performed By: #### L 500.4050, BTSPAT, L100.0100, L501.5200 #### [facility] [address] [place], [address] Comprehensive Metabolic Prof [facility] 02-10-2025 Albumin [Mass/Vol] 4.2 g/dL Normal 3.5-5.0 [facility] Comment on above: Performed By: #### L 500.4050, BTSPAT, L100.0100, L501.5200 #### [facility] [address] [place], [address] Albumin/Globulin [Mass ratio] 1.7 {ratio} Normal 0.9-2.4 [facility] Comment on above: Performed By: #### L 500.4050, BTSPAT, L100.0100, L501.5200 #### [facility] [address] [place], [address] ALK PHOS 130 U/L High 35-104 [facility] Comment on above: Performed By: #### L 500.4050, BTSPAT, L100.0100, L501.5200 #### [facility] [address] [place], [address] ALT [Catalytic activity/Vol] 32 U/L Normal <=34 [facility] Comment on above: Performed By: #### L 500.4050, BTSPAT, L100.0100, L501.5200 #### [facility] [address] [place], [address] AST [Catalytic activity/Vol] 23 U/L Normal <=31 [facility] Comment on above: Performed By: #### L 500.4050, BTSPAT, L100.0100, L501.5200 #### [facility] [address] [place], [address] Bilirubin [Mass/Vol] 0.29 mg/dL Normal 0.00-1.30 [facility] Comment on above: Performed By: #### L 500.4050, BTSPAT, L100.0100, L501.5200 #### [facility] [address] [place], [address] BUN/CRE 15.8 RATIO Normal 10-20 [facility] Comment on above: Performed By: #### L 500.4050, BTSPAT, L100.0100, L501.5200 #### [facility] [address] [place], [address] Calcium [Mass/Vol] 9.4 mg/dL Normal 7.6-11.0 [facility] Comment on above: Performed By: #### L 500.4050, BTSPAT, L100.0100, L501.5200 #### [facility] [address] [place], [address] Chloride [Moles/Vol] 105 mmol/L Normal 98-108 [facility] Comment on above: Performed By: #### L 500.4050, BTSPAT, L100.0100, L501.5200 #### [facility] [address] [place], [address] CO2 [Moles/Vol] 25.7 mmol/L Normal 21.0-32.0 [facility] Comment on above: Performed By: #### L 500.4050, BTSPAT, L100.0100, L501.5200 #### [facility] [address] [place], [address] Creatinine [Mass/Vol] 0.80 mg/dL Normal 0.70-1.20 [facility] Comment on above: Performed By: #### L 500.4050, BTSPAT, L100.0100, L501.5200 #### [facility] [address] [place], [address] GAP 10 Normal 5-15 [facility] Comment on above: Performed By: #### L 500.4050, BTSPAT, L100.0100, L501.5200 #### [facility] [address] [place], [address] GFR/1.73 sq M.predicted among non-blacks MDRD (S/P/Bld) [Vol rate/Area] 85 mL/min/{1.73_m2} Normal >60 [facility] Comment on above: Result Comment: mL/m in/1.73m2 CKD-EPI Creatinine Equation (2020) Performed By: #### L 500.4050, BTSPAT, L100.0100, L501.5200 #### [facility] [address] [place], [address] Globulin (S) [Mass/Vol] 2.4 g/dL Normal 2.2-4.2 [facility] Comment on above: Performed By: #### L 500.4050, BTSPAT, L100.0100, L501.5200 #### [facility] [address] [place], [address] Glucose [Mass/Vol] 103 mg/dL High 70-99 [facility] Comment on above: Performed By: #### L 500.4050, BTSPAT, L100.0100, L501.5200 #### [facility] [address] [place], [address] Potassium [Moles/Vol] 4.7 mmol/L Normal 3.3-5.1 [facility] Comment on above: Performed By: #### L 500.4050, BTSPAT, L100.0100, L501.5200 #### [facility] [address] [place], [address] Sodium [Moles/Vol] 141 mmol/L Normal 133-145 [facility] Comment on above: Performed By: #### L 500.4050, BTSPAT, L100.0100, L501.5200 #### [facility] [address] [place], [address] T PROT 6.6 g/dL Normal 5.9-8.4 [facility] Comment on above: Performed By: #### L 500.4050, BTSPAT, L100.0100, L501.5200 #### [facility] [address] [place], [address] Urea nitrogen [Mass/Vol] 13 mg/dL Normal 4-19 [facility] Comment on above: Performed By: #### L 500.4050, BTSPAT, L100.0100, L501.5200 #### [facility] [address] [place], [address] Magnesiumon 02-10-2025 Magnesium [Mass/Vol] 2.1 mg/dL Normal 1.5-2.2 [facility] Comment on above: Performed By: #### L 500.4050, BTSPAT, L100.0100, L501.5200 ####[facility] [address] [place], [place], [address] Type AND Screen - PAT ONLYon 02-10-2025 ABO and Rh group Nom (Bld) Blood group AB Rh(D) positive Normal [facility] Comment on above: Order Comment: Surge ry Date: 02/16/25 10:30 QUINTEN [id number] GENERAL SDC 59/F 1965ERAS, Lap Total Robotic Hysterectomy BSO, Cystoscopy(Bilateral) Cinthya Cast for Laboratory Test [id number] Performed By: #### L 500.4050, BTSPAT, L100.0100, L501.5200 ####[facility] [address] [place], [address] [employer] Office Visit Reporton 02-01-2025 [employer] Office Visit Report [facility] [address], [address] [place] [address] OFFICE VISIT Date of Service: 02/01/25 MR#: [id number] Acct: [id number] Name: QUINTEN KRISHNANN Rep #: [id number] : 1965 Provider: Dr. Mari Ruiz DO Age/Sex: 59/F [place] [facility] [place]: Signed Intake Vital Signs 11/24/24 14:30 02/01/25 13:06 Height 5 ft 1 in 5 ft 1 in Weight: 207 lb 6 oz BMI 39.2 BP 162/84 H Intake Visit Reasons: TRHBSO Cysto Chief Complaint: TRHBSO Cysto Preop Industrial Engineering Technologist Required: No Is patient in pain?: No Allergies No Known Allergies Allergy (Verified 02/01/25 13:11) Medications ???Medication ???Instructions ???Recorded ???Confirmed ???Type biotin 1 mg capsule 1 mg PO QDAY 08/24/24 02/01/25 His tory cholecalciferol (vitamin D3) 50 50 mcg PO QDAY 08/24/24 02/01/25 H istory mcg (2,000 unit) capsule fexofenadine 180 mg tablet 180 mg PO DAILY 09/15/24 02/01/25 History (Clari Allergy) lisinopril 10 mg tablet 10 mg PO DAILY 09/15/24 02/01/25 H istory meloxicam 7.5 mg tablet 7.5 mg PO DAILY 09/15/24 02/01/25 History Held on 09/29/24. Instructions: Resume on 10/03/24. Is last menstrual period known: No Post menopausal: Yes Patient : No : No PFSH Medical History Post-menopausal Non-smoker Seasonal allergies Hypertension Surgical History S/P dilation and curettage History of hysteroscopy Hx of bilateral breast reduction surgery History of tonsillectomy Hx of breast biopsy delivery delivered Family History Mother Hypertension Father Hypertension Cancer prostate- remission Grandfather Heart disease Grandmother Heart disease Social History Smoking Status: Never smoker alcohol intake: never substance use type: does not use caffeine: Yes what type of physical activity do you participate in: none seatbelt use: always do you feel safe at home: Yes 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 She had postmenopausal bleeding and a failed hysteroscopy D C due to cervical stenosis. She has elected to proceed with a robotic hysterectomy. ultrasound showed the following: FINDINGS: Measurements: Uterus: 12.5 cm x 5.8 cm x 5.3 cm. Evidence of a 1.7 cm x 1.7 cm x 0.9 cm calcified fibroid. There is also evidence of a 1.6 cm x 0.9 cm x 1.2 cm fibroid. Endometrial Thickness: 7.1 mm. The endometrium has a trilaminar appearance. This is thickened. Right Ovary: Not visualized. Left Ovary: 5.6 cm x 5.4 cm x 4.2 cm. There is a 4.8 cm x 4.7 cm x 4.3 cm cyst. TRANSABDOMINAL: Uterus: Fibroid uterus. Endometrium: Thickened. This measures 7.1 mm. Right ovary: Not visualized. Left ovary: 4.8 cm x 4.77 x 4.3 cm simple cyst. No large pelvic mass identified. Transvaginal sonography was performed to better visualize the endometrium. TRANSVAGINAL: Uterus: Anteverted. Fibroid uterus. Endometrium: Endometrial thickening measuring 7.1 cm. Right ovary: Not visualized Left ovary: 4.8 cm x 4.77 x 4.3 cm simple cyst. Other adnexal findings: None. Cul-de-sac: No free intraperitoneal fluid identified. No tenderness. US/Pelvic w/ Transvaginal IMPRESSION: Fibroid uterus. Endometrial thickening. Left ovarian cyst. Follow-up recommended. Reading Location: [place] [address] History 2 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 Date Name GA/Weeks Outcome Route Bth Weight Gen Labor [facility]gth [facility]esthesia [facility] FOB Unknown 1993 [place] live - full term Unknown [place] live - full term ROS Const ROS Unobtainable: All systems reviewed are unremarkable except as noted in H Resp Resp: Reports system reviewed and no additional complaints, except as documented; Denies cough GI GI: Reports as per HPI Psych Psych: Reports system reviewed and no additional complaints, except as documented Exam Const General: cooperative, healthy appearing, comfortable and no acute distress Resp Effort Inspection: normal respiratory effort Skin General: no rashes or lesions noted Psych Appearance: grossly normal Speech and Movement: speech and mov (more content not included)... Normal [facility] [employer] Office Visit Reporton 11-24-2024 [employer] Office Visit Report [facility] [address], [address] [place] [address] OFFICE VISIT Date of Service: 11/24/24 MR#: [id number] Acct: [id number] Name: QUINTEN KRISHNAN Rep #: [id number] : 1965 Provider: Dr. Mari Ruiz, DO Age/Sex: 59/F [place] [facility] [place]: Signed Intake Vital Signs 11/05/24 08:33 11/24/24 14:28 11/24/24 14:30 Height 5 ft 1 in 5 ft 1 in 5 ft 1 in Weight: 208 lb BMI 39.2 BP 149/86 H Intake Visit Reasons: Surgical Consult Industrial Engineering Technologist Required: No Is patient in pain?: No Allergies No Known Allergies Allergy (Verified 11/24/24 14:27) Medications ???Medication ???Instructions ???Recorded ???Confirmed ???Type biotin 1 mg capsule 1 mg PO QDAY 08/24/24 11/24/24 His tory cholecalciferol (vitamin D3) 50 50 mcg PO QDAY 08/24/24 11/24/24 H istory mcg (2,000 unit) capsule fexofenadine 180 mg tablet 180 mg PO DAILY 09/15/24 11/24/24 History (Clari Allergy) lisinopril 10 mg tablet 10 mg PO DAILY 09/15/24 11/24/24 H istory meloxicam 7.5 mg tablet 7.5 mg PO DAILY 09/15/24 11/24/24 History Held on 09/29/24. Instructions: Resume on 10/03/24. Post menopausal: No Patient : No : No PFSH Medical History Post-menopausal Non-smoker Seasonal allergies Hypertension Surgical History S/P dilation and curettage History of hysteroscopy Hx of bilateral breast reduction surgery History of tonsillectomy Hx of breast biopsy delivery delivered Family History Mother Hypertension Father Hypertension Cancer prostate- remission Grandfather Heart disease Grandmother Heart disease Social History Smoking Status: Never smoker alcohol intake: never substance use type: does not use caffeine: Yes what type of physical activity do you participate in: none seatbelt use: always do you feel safe at home: Yes 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 She has her son with her today that is a PA. Her uterus is enlarged measuring 12.5 cm with some small fibroids. She has some chronic back pain and it is uncertain if the pain is from the enlarged uterus. History 2 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 Date Name GA/Weeks Outcome Route Bth Weight Infant Gen Labor Lgth Anesthesia Del Locatn Provider FOB Unknown 1993 Emily live - full term Unknown [place] live - full term ROS Const ROS Unobtainable: All systems reviewed are unremarkable except as noted in H Resp Resp: Reports system reviewed and no additional complaints, except as documented; Denies cough GI GI: Reports as per HPI Psych Psych: Reports system reviewed and no additional complaints, except as documented Exam Const General: cooperative, healthy appearing, comfortable and no acute distress Resp Effort Inspection: normal respiratory effort Skin General: no rashes or lesions noted Psych Appearance: grossly normal Speech and Movement: speech and movement normal Coding Level of Care Code Off vis,est,level 3 Diagnoses Fibroid uterus D25.9 Postmenopausal bleeding N95.0 Cervical stenosis (uterine cervix) N88.2 HTN (hypertension) I10 Assessment and Plan Assessment and Plan (1) Fibroid uterus: Status: Acute (2) Postmenopausal bleeding: Status: Acute Comment: post evaluation (3) Cervical stenosis (uterine cervix): Status: Acute Comment: would need cytotec prior to d and c if needs surgery (4) HTN (hypertension): Status: Chronic Plan Today we had a nice discussion about the contamination in her specimen. I was able to reach out to colleagues who have had the same issue in the past and also discussed with Dr. Woods in pathology to reassure her that the pathology was contaminated and she does not have cancer. We did attempt a repeat biopsy last week in the office, however due to stenosis the pipelle only made it into the cervix and the specimen was inadequate. She will go home and think about options of observation vs a hysterectomy. I have also given the option for her to see Dr. Sepulveda (more content not included)... Normal [facility] Surgical pathology reportOrd ered By: Hamida Bashir on 11-06-2024 Surgical pathology study [facility] Cocoa [employer] Operator Office Visit Reporton 11-05-2024 Coc[employer] Operator Office Visit Report [facility]'s [address], [address] [place] [address] OFFICE VISIT Date of Service: 11/05/24 MR#: [id number] Acct: [id number] Name: QUINTEN KRISHNAN Rep #: [id number] : 1965 Provider: Dr. Mari Ruiz, Age/Sex: 59/F Location[place] [facility] [place]: Signed Intake Vital Signs 10/20/24 09:37 11/05/24 08:23 11/05/24 08:33 Height 5 ft 1 in 5 ft 1 in 5 ft 1 in Weight: 205 lb BMI 38.7 BP 142/80 H Intake Visit Reasons: Rpt EMB Chief Complaint: Rpt EMB Industrial Engineering Technologist Required: No Is patient in pain?: No Allergies No Known Allergies Allergy (Verified 11/05/24 08:23) Medications ???Medication ???Instructions ???Recorded ???Confirmed ???Type biotin 1 mg capsule 1 mg PO QDAY 08/24/24 11/05/24 His tory cholecalciferol (vitamin D3) 50 50 mcg PO QDAY 08/24/24 11/05/24 H istory mcg (2,000 unit) capsule fexofenadine 180 mg tablet 180 mg PO DAILY 09/15/24 11/05/24 History (Clari Allergy) lisinopril 10 mg tablet 10 mg PO DAILY 09/15/24 11/05/24 H istory meloxicam 7.5 mg tablet 7.5 mg PO DAILY 09/15/24 11/05/24 History Held on 09/29/24. Instructions: Resume on 10/03/24. Is last menstrual period known: No Post menopausal: Yes Patient : No : No PFSH PFSH Medical History Post-menopausal Non-smoker Seasonal allergies Hypertension Surgical History S/P dilation and curettage History of hysteroscopy Hx of bilateral breast reduction surgery History of tonsillectomy Hx of breast biopsy delivery delivered Family History Mother Hypertension Father Hypertension Cancer prostate- remission Grandfather Heart disease Grandmother Heart disease Social History Smoking Status: Never smoker alcohol intake: never substance use type: does not use caffeine: Yes what type of physical activity do you participate in: none seatbelt use: always do you feel safe at home: Yes 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 Date Name GA/Weeks Outcome Route Bth Weight Gen Labor Lgth Anesthesia Del Locatn Provider FOB Unknown 1993 Emily live - full term Unknown Thong live - full term HPI Rpt EMB Details: QUINTEN KRISHNAN is a 59 year old who presents for repeat EMB due to a mix up in the lab that showed endometrial cancer cells potentially from another patient. I explained to the patient that the risk is too high to rely on that and I recommend a second biopsy. ROS Const ROS Unobtainable: All systems reviewed are unremarkable except as noted in H Resp Resp: Reports system reviewed and no additional complaints, except as documented; Denies cough GI GI: Reports as per HPI Psych Psych: Reports system reviewed and no additional complaints, except as documented Exam Const General: cooperative, healthy appearing, comfortable and no acute distress Resp Effort Inspection: normal respiratory effort General: bimanual renal exam normal bilaterally External Female Exam: normal appearance of the urethra Urethra: normal appearance of the urethra Speculum Exam - Vagina: normal appearance of the vagina Speculum Exam - Cervix: normal appearance of the cervix Bimanual Exam- Adnexa, other: normal adnexae and normal Pelvic Support: normal Skin General: no rashes or lesions noted Psych Appearance: grossly normal Speech and Movement: speech and movement normal Office Procedures Endometrial Biopsy Endometrial Biopsy Test: Yes declined Consent Signed: Yes Time out checklist: patient tenaculum used: Yes dilator used: Yes Details: Cervix prepped with betadine and pipelle inserted into cervix and the lower uterine segment to 5cm The uterus is known to be 12 cm.. There was quite a bit of resistance and the procedure was aborted after multiple attemps. The Specimen obtained from the cervix and lower uterine segment was sent to lab for analysis. All instruments removed from vagina without complications. Excellent hemostasis noted. Coding Level of Care Code Attention Digital Data Analyst Diagnoses Postmenopausal bleeding N95.0 CPT Codes Endometrial Biopsy (97534) Assessment and Plan Assessment and Plan (1) Postmenopausal bleeding: Status: Acute Comment: post evaluation Plan: dif (more content not included)... Normal [facility] Surgery Specimen Level Faith 11-05-2024 Surgery Specimen Level IV Patient Age/Sex Location Account Attending Physician QUINTEN KRISHNAN 59/F LABSPEC [id number] Regina Craven Specimen: [id number] Received: 11/05/24 Status: KENDALL Marsh Num: [id number] Spec Type: ENDOM BX/C Gabby Dr: Dr. Mari Hensley DO HEADER OPERATION: Endometrial biopsy PRE-OP DIAGNOSIS: Post menopausal bleeding TISSUE SUBMITTED: A- Endometrial lining MICROSCOPIC DIAGNOSIS A. Uterus, endometrial lining, biopsy: * Predominantly scant benign endocervical glandular tissue * Endometrial sampling is not identified MICROSCOPIC DESCRIPTION Slides are reviewed. GROSS DESCRIPTION A. Received in formalin in a container labeled with the patient's name, date of , and with the accompanying paperwork indicating endometrial lining are multiple rose-pink fragments of soft tissue admixed with blood and mucus measuring 2.5 x 2.3 x 0.2 cm in aggregate. Submitted in toto in A1. [facility] 11/06/2024 CPT:82894 Patient Age/Sex Location Account Attending Physician QUINTEN KRISHNAN 59/F LABSPEC [id number] Regina Craven Signed (signature on file) Dr. Hamida Bashir DO 11/06/24 0958 Normal [facility] Comment on above: Performed By: #### P SUIV #### [facility] [address] [place], [address] MEASLES, MUMPS, AND RUBELLA (MMR) AB (IGG) PANEL, IMMUNE STATUSon 11-02-2024 MEASLES AB (IGG), IMMUNE STATUS >300.00 Normal [facility] Comment on above: Result Comment: AU/m L Interpretation ----- <13.50 Not consistent with immunity 13.50-16.49 Equivocal >16.49 Consistent with immunity The presence of measles IgG suggests immunization or past or current infection with measles virus. For additional information, please refer to [email or web address]/faq/CTN187 (This link is being provided for informational/ educational purposes only.) Performed By: #### 5 259 #### [facility] [address], [address] [place] [id number] Three Dimensional Map Modeler: Perry Hathaway MD MUMPS VIRUS AB (IGG), IMMUNE STATUS 83.90 AU/mL Normal [facility] Comment on above: Result Comment: AU/m L Interpretation ------- <9.00 Not consistent with immunity 9.00-10.99 Equivocal >10.99 Consistent with immunity The presence of mumps IgG antibody suggests immunization or past or current infection with mumps virus. Performed By: #### 5 259 #### [facility] [address], [address] [place] [address] Three Dimensional Map Modeler: Perry Hathaway MD RUBELLA AB (IGG), IMMUNE STATUS 3.98 Index Normal [facility] Comment on above: Result Comment: Inde x Interpretation ----- <0.90 Not consistent with immunity 0.90-0.99 Equivocal > or = 1.00 Consistent with immunity The presence of rubella IgG antibody suggests immunization or past or current infection with rubella virus. Performed By: #### 5 259 #### [facility] [address], [address] [place] [address] Three Dimensional Map Modeler: Perry Hathaway MD No Panel Informationon 10-29 MEASLES AB (IGG), IMMUNE STATUS >300.[address] [facility] [employer] MUMPS VIRUS AB (IGG), IMMUNE STATUS 83.90 AU/mL Normal [employer] [employer] RUBELLA AB (IGG), IMMUNE STATUS 3.98 {Index} Normal [facility] [employer] 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 Instructions: Resume on 10/03/24. Post menopausal: No Patient : No : No PFSH Medical History Post-menopausal Non-smoker Seasonal allergies Hypertension Surgical History S/P dilation and curettage History of hysteroscopy Hx of bilateral breast reduction surgery History of tonsillectomy Hx of breast biopsy delivery delivered Family History Mother Hypertension Father Hypertension Cancer prostate- remission Grandfather Heart disease Grandmother Heart disease Social History Smoking Status: Never smoker alcohol intake: never substance use type: does not use caffeine: Yes what type of physical activity do you participate in: none seatbelt use: always do you feel safe at home: Yes 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 pathology is still pending so we discussed next steps are likely to monitor conservatively if benign. The endometrium looked extremely bare and atrophic. Do not suspect malignancy. History 2 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 Date Name GA/Weeks Outcome Route Bth Weight Gen Labor Lgth Anesthesia Del Locatn Provider FOB Unknown 1993 Emily live - full term Unknown 197 Thong live - full term ROS ENT ENT: Reports system reviewed and no additional complaints, except as documented Cardio Card: Reports system reviewed and no additional complaints, except as documented Resp Resp: Denies cough, dyspnea or dyspnea on exertion GI GI: Denies abdominal pain, bloating or change in bowel habits : Denies vaginal odor or vaginal pruritus Musc Musc: Reports system reviewed and no additional complaints, except as documented Exam Const General: cooperative, healthy appearing and comfortable Resp Effort Inspection: normal respiratory effort GI Palpation: soft and nontender Rectal Exam: other Extrem General: no edema Coding Level of Care Code Off vis,est,level 3 Diagnoses Fibroid uterus D25.9 Postmenopausal bleeding N95.0 Assessment and Plan Assessment and Plan (1) Fibroid uterus: Status: Acute (2) Postmenopausal bleeding: Status: Acute Comment: post evaluation Plan will call with final pathology. If she wants a hyst for the 12 cm fibroid uterus and abnormal continued postmenopausal bleeding we will proceed. but if only spotting occasionally and no pain, will be hesitant to perform a hyst for this reason if pathology does not look benign then this will be a different plan of action. Pathology contacted. Will call patient when it's back. 10/20/24 1007 Date Mari Townsend Signature: Date (if applicable) CC: Normal [facility] Discharge Instructionon 09-19 Discharge Instruction [facility] Medical Records Department [address] [place] [address] Instructions for Home/Discharge Instructions 09/29/24 1232 MR#: [id number] Acct: [id number] Name: QUINTEN KRISHNAN Rep #: [id number] : 1965 59 From: Mari Hensley DO PCP: Dr. Anival Flower MD Status:REG [facility] [place] Discharge Instructions Diet Discharge Diet: No restrictions DC O2, CPAP, BIPAP needs Home O2 Discharge instructions: No Dressing / Incision Discharge Activity: Return to Normal Activity, May Shower and May Take a Tub Bath (after 1 week) May resume sexual activity in: 1-2 weeks Weight Bearing Status: Weight bearing as tolerated Lifting Restrictions: none Dressing / Incision Call your doctor if you observe: Fever of 101 or Higher, Using more than 1 pad per hour, Shortness of breath and Uncontrolled pain Follow Up Care Please Follow Up With: Mari Hensley DO When: Call [phone] to schedule appointment. Test Results: Test results from this visit will be discussed in further detail at your follow-up appointment, if applicable. Discharge Plan Admission Attending Provider: Mari Hensley Primary Care Provider: Anival Flower Instructions Print Language: Burmese Discharge Orders/Prescriptions Prescriptions: New ibuprofen 800 mg tablet 800 mg PO Q8H Qty: 3 9RF oxycodone-acetaminop hen [Percocet] 5-325 mg tablet 1 tab PO Q4H PRN (Reason: pain) 3 Days Qty: 6 0RF Continued biotin 1 mg capsule 1 mg PO QDAY cholecalciferol (vitamin D3) 50 mcg (2,000 unit) capsule 50 mcg PO QDAY lisinopril 10 mg tablet 10 mg PO DAILY fexofenadine [Clari Allergy] 180 mg tablet 180 mg PO DAILY Held meloxicam 7.5 mg tablet 7.5 mg PO DAILY Hold Instructions: Resume on 10/03/24. Referrals / Follow Up: Anival Flower MD [Primary Care Provider] - Disposition Disposition (needs filled in before D/C Order can be placed): Home, Self Care 09/29/24 1236 Mari Hensley DO CC: Dr. Anival Flower MD Signed Normal [facility] Immunohistochemical Stainson 09-29-2024 Immunohistochemical Stains Patient Age/Sex Location Account Attending Physician ARIELLAQUINTEN 59/F [facility] [place] [id number] Dr. Mari Hensley, Regina Specimen: [id number] Received: 09/30/24 Status: KENDALL Salma Num: [id number] Spec Type: ENDOM BX/C Subm Dr: Dr. Mari Hensley DO HEADER OPERATION: Hysteroscopy, Regina C PRE-OP DIAGNOSIS: Fibroid uterus, postmenopausal bleeding TISSUE SUBMITTED: Endometrial curettings MICROSCOPIC DIAGNOSIS Endometrium, curettage: * Atrophic endometrium with stromal breakdown - see Comment. COMMENT In addition to the atrophic endometrium (correlating with the direct observation and impression at the time of surgery) there is a tiny fragment of distinctly different tissue that is positive for p16 and ER with wild type p53 and negative CEA. This immunophenotype along with the histologic appearance resembles an endometrial tumor from a different patient which was received from Dr Hensley's office on the same day. Given this patient's history (Juana Krishnan) and the appearance of the endometrium and the atrophic histology of the background endometrium, this aberrant tissue is strongly favored to represent a contaminant from the other patient's specimen (possibly occurring during grossing or embedding). This finding was discussed with Dr Hensley on 10/20/24. Appropriate follow up with repeat sampling if the patient's symptoms should persist/progress is recommended. The slides/images were also reviewed in intradepartmental consultation by Dr Jaswinder Macdonald ([facility] pathology division, [facility]) who concurs with the findings and interpretation. MICROSCOPIC DESCRIPTION Slides are reviewed. All matched controls reacted appropriately. GROSS DESCRIPTION The specimen is received in one container labeled with the patient's name and designated endometrial curettings. The specimen consists of a small amount of rose-brown soft tissue on a piece of gauze. The tissue measures in aggregate 1 x 0.5 x 0.2 cm. It is scraped off and totally submitted. TE1. EH 09/30/24 CPT:20676, 76911, [id number] Patient Age/Sex Location Account Attending Physician QUINTEN KRISHNAN 59/F [facility] [place] [id number] Regina Craven Signed (signature on file) Dr. Amairani Woods MD 10/22/24 0837 Normal [facility] Comment on above: Performed By: #### P [facility] ####[facility] [address] [place], [address] MR/POSTOP.ANEjohn 09-29-2024 MR/POSTOP.[facility] Medical Records Department [address] [place] [address] Anesthesia Postop Eval I 09/29/24 1343 MR#: [id number] Acct: [id number] Name: QUINTEN KRISHNAN Rep #: [id number] : 1965 59 From: Rhoda Mandujano CRNA PCP: Dr. Anival Flower MD Status:REG SD Y Race: C Location: [place] [address] Anesthesia: Postop Eval I Current Vital Signs Temperature: 97.8 F Pulse Rate: 99 Blood Pressure: 145/58 Respiratory Rate: 15 Pulse Ox: 97 Oxygen Delivery Method: Simple Mask Assessment Airway patent: Yes Spontaneous unlabored respirations: Yes Mental status: Awake nausea: No Vomiting: No Anesthesia Complication: No Fluid Hydration Crystalloid volume administer (ml): 500 Total IV fluid infused: 500 Progress Note Anesthesia document: Postop Eval 1 completed: Yes 09/29/24 1344 Date Rhoda Mandujano SYRUPER Emirigner Signature: Date CC: Signed Normal [facility] MR/[id number] 09-29-2024 MR/POSTOPAN2 [facility] Medical Records Department [address] [place] [address] Anesthesia Postop Eval II 09/29/241714 MR#: [id number] Acct: [id number] Name: QUINTEN KRISHNAN Rep #: [id number] : 1965 59 From: Familia Carrizales MD PCP: Dr. Anival Flower MD Status:[facility] Y Race: C Location: [facility] [place] Anesthesia Postop Eval I Sum Postop Eval Completion status Anesthesia document: Postop Eval 1 completed: Yes Anesthesia Postop Eval I Summary Anesthesia Postop Eval I Summary: Anesthesia Postop Eval I: Assessment Summary Airway patent Yes 09/29/24 13:44 [email or web address] Spontaneous unlabored Yes 09/29/24 13:44 [email or web address] respirations Mental status Awake 09/29/24 13:44 [email or web address] nausea No 09/29/24 13:44 [email or web address] Vomiting No 09/29/24 13:44 [email or web address] Anesthesia Postop Eval I: Fluid Summary Crystalloid volume administer 500 09/29/24 13:44 [email or web address] (ml) Colloids volume administered ( ml) Blood Product volume administered (ml) Total IV fluid infused 500 09/29/24 13:44 [email or web address] Anesthesia Postop Eval I: Summary Notes Anesthesia Complication No 09/29/24 13:44 [email or web address] Anesthesia Complication Comment: Post-operative progress note Anesthesia: Postop Eval II Evaluation Mental status: Awake Pain Level: 0 nausea: No Vomiting: No Complications Anesthesia Complication: No 09/29/241714 Familia Carrizales MD Cosigner Signature: Date CC: Signed Normal [facility] Operative Reporton 5 Operative Report [facility] Medical Records Department [address] [place] [address] Operative Report 09/29/24 1251 MR#: [id number] Acct: [id number] Name: QUINTEN KRISHNAN Rep #: [id number] : 1965 59 From: Mari Hensley DO PCP: Dr. Anival Flower MD Status:[facility] Location: [place] [address] Problems Associated Problem List Diagnoses (1) Fibroid uterus: (2) Postmenopausal bleeding: Multi Select Codes Urinary/Genital Urinary/Genital CPT Codes: 05563 Hysteroscopy, diagnostic Operative Report (Standard) Operative Information Date of Procedure: 09/29/24 Pre-Operative Diagnosis: postmenopausal bleeding, ultrasound finding of possible polyp or fibroid in the endometrium Post-Operative Diagnosis: postmenopausal bleeding, ultrasound finding of possible polyp or fibroid in the endometrium Surgery/Procedure Performed: hysteroscopy 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 Type of Anesthesia: General and MAC RN Documented Start/Stop Times: Operation Date: 09/29/24 12:10 Case Time Into Pre-Op 09/29/24 10:46 Out of Pre-Op 09/29/24 12:30 Anesthesia Start 09/29/24 12:43 Into Room 09/29/24 12:43 Procedure Start 09/29/24 13:12 Procedure End 09/29/24 13:21 Procedure Start Time: 13:12 Procedure Stop Time: 13:21 Select all DRAINS/GRAFTS/IMPLAN TS that apply: None Estimated Blood Loss: 5cc Specimen collected: Yes Description of specimen(s) removed: endometrial curetting's Description of surgery: Patient was prepped and draped in a normal sterile fashion under MAC anesthesia. A weighted speculum was placed in the vagina and the anterior lip of the cervix was grasped with a single-tooth tenaculum. A paracervical block was placed with 1% lidocaine. Cervix was progressively dilated to allow passage of a 5 mm hysteroscope. The lining was fully visualized and noted to be atrophic appearing and without mass . Uterine sounded to 10 cm. Curettage was performed and scant specimen was sent to pathology. All instruments were removed from the vagina and excellent hemostasis was noted. Patient was awoken and taken to recovery in stable condition. Surgical Findings: atrophic appearing endometrium without mass or polyp Complications Complications: No Admit VTE Documentation VTE Present on Admission: No VTE Mechan Device Prophylaxis: SCD's VTE Pharm Prophylaxis ordered?: No 09/29/24 1327 Cosigner Signature (if applicable): CC: Dr. Mari Hensley DO; Dr. Anival Flower MD Signed Normal [facility] Type AND Screen - PAT ONLYon 09-29-2024 ABO and Rh group Nom (Bld) Blood group AB Rh(D) positive Normal [facility] Comment on above: Order Comment: Surge ry Date: 09/29/24Reason for Laboratory Test [id number] D C Performed By: #### B TSPAT ####[facility] [address] [facility]. [place], [place], [address] Electrocardiogram reportOrde red By: Himanshu Schulte on 09-23-2024 EKG study [facility] Cardiovascular Services [address] [place] [address] 12 Lead EKG 09/22/24 1017 MR#: [id number] Acct: [id number] Name: QUINTEN KRISHNAN Rep #:[id number] : 1965 59 From: Himanshu charles MD Attending Dr: Dr. Mari Hensley DO Status: PRE [facility] [place] Ordering Dr: Mari Hensley DO D ate: 09/22/24 Location: [facility] [place] Sex: F C Admitted: Test Reason : PREOP Blood Pressure : */* mmHG Vent. Rate : 81 BPM Atrial Rate : 81 BPM P-R Int : 148 ms QRS Dur : 78 ms QT Int : 348 ms P-R-T Axes : 19 62 24 degrees QTcB Int : 404 ms Normal sinus rhythm Normal ECG Confirmed by Himanshu Schulte ([id number]), editor continuity and script KIRILL WIN ([id number]) on 09/23/2024 5:56:19 AM Referred By: Mari Hensley Confirmed By: Himanshu Schulte 09/23/2456 Date _ Himanshu Schulte MD CC: Dr. Mari Hensley DO; Dr. Anival Flower MD ~ Signed [facility] Work Phone: 12 Lead EKGon 09-22-2024 12 Lead EKG [facility] Cardiovascular Services [address] [place] [address] 12 Lead EKG 09/22/24 1017 MR#: [id number] Acct: [id number] Name: QUINTEN KRISHNAN Rep #: [id number] : 1965 59 From: Himanshu Schulte MD Attending Dr: Dr. Mari Hensley DO Statu s: PRE SDC Ordering Dr: Mari Hensley DO Date: 5 Location: [facility] [place] Sex: F C Admitted: Test Reason : PREOP Blood Pressure : */* mmHG Vent. Rate : 81 BPM Atrial Rate : 81 BPM P-R Int : 148 ms QRS Dur : 78 ms QT Int : 348 ms P-R-T Axes : 19 62 24 degrees QTcB Int : 404 ms Normal sinus rhythm Normal ECG Confirmed by Himanshu Schulte ([id number]), editor continuity and script KIRILL WIN ([id number]) on 09/23/2024 5:56:19 AM Referred By: Mari Hensley Confirmed By: Himanshu Schulte 09/23/24 0556 Date Himanshu Schulte MD CC: Dr. Mari Hensley DO; Dr. Anival Flower MD Signed Normal [facility] Anion gap in Serum or Plasma Ordered By: Mari Springer on 09-22-2024 Anion gap [Moles/Vol] 11 mmol/L 5-15 [facility] BUN/creatinine ratioOrdered By: Mari Springer on 09-22-2024 Urea nitrogen/Creatinine [Mass ratio] 20.8 mg/mg High 10-20 [facility] Bilirubin, totalOrdered By: Mari Springer on 09-22-2024 Bilirubin [Mass/Vol] 0.29 mg/dL 0.00-1.30 [facility] CBC-Complete Blood Cnt No Di ffon 09-22-2024 Erythrocyte distribution width (RBC) [Ratio] 12.7 % Normal 11.6-14.6 [facility] Comment on above: Performed By: #### L 500.4050, L100.0500 ####[facility] [address] [place], [address] Hematocrit (Bld) [Volume fraction] 42.8 % Normal 37-47 [facility] Comment on above: Performed By: #### L 500.4050, L100.0500 ####[facility] [address] [place], [address] Hemoglobin (Bld) [Mass/Vol] 14.1 g/dL Normal 12.0-15.0 [facility] Comment on above: Performed By: #### L 500.4050, L100.0500 ####[facility] [address] [place], [address] MCH (RBC) [Entitic mass] 30.4 pg Normal 27.0-32.0 [facility] Comment on above: Performed By: #### L 500.4050, L100.0500 ####[facility] [address] [place], [address] MCHC (RBC) [Mass/Vol] 32.9 g/dL Normal 32-36 [facility] Comment on above: Performed By: #### L 500.4050, L100.0500 ####[facility] [address] [place], [address] MCV (RBC) [Entitic vol] 92.2 fL Normal 81-99 [facility] Comment on above: Performed By: #### L 500.4050, L100.0500 ####[facility] [address] [place], [address] Platelet mean volume (Bld) [Entitic vol] 8.7 fL Normal 6.2-12.0 [facility] Comment on above: Performed By: #### L 500.4050, L100.0500 ####[facility] [address] [place], [address] Platelets (Bld) [#/Vol] 244 10*3/uL Normal 150-450 [facility] Comment on above: Performed By: #### L 500.4050, L100.0500 ####[facility] [address] [place], [address] RBC (Bld) [#/Vol] 4.64 10*6/uL Normal 4.2-5.4 [facility] Comment on above: Performed By: #### L 500.4050, L100.0500 ####[facility] [address] [place], [address] RDW SD 42.8 fl Normal 35.1-43.9 [facility] Comment on above: Performed By: #### L 500.4050, L100.0500 ####[facility] [address] [place], [address] WBC (Bld) [#/Vol] 5.2 10*3/uL Normal 4.4-11.0 [facility] Comment on above: Performed By: #### L 500.4050, L100.0500 ####[facility] [address] [place], [address] Carbon dioxide, total [Moles /volume] in Central venous bloodOrdered By: Mari Springer on 09-22-2024 CO2 [Moles/Vol] 22.9 mmol/L 21.0-32.0 [facility] Chloride assayOrdered By: Douglas Springer on 09-22-2024 Chloride [Moles/Vol] 105 mmol/L 98-108 [facility] Comprehensive Metabolic Prof ilon 09-22-2024 AST [Catalytic activity/Vol] 22 U/L Normal <=31 [facility] Comment on above: Performed By: #### L 500.4050, L100.0500 ####[facility] [address] [place], [address] Erythrocyte distribution wid th ratioOrdered By: Mari Springer on 09-22-2024 Erythrocyte distribution width (RBC) [Ratio] 12.7 % 11.6-14.6 [facility] Erythrocyte distribution wid th standard deviationOrdered By: Mari Springer on 09-22-2024 Erythrocyte distribution width (RBC) [Entitic vol] 42.8 fL 35.1-43.9 [facility] GFR/1.73 sq M.predicted celestina g non-blacks MDRD (S/P/Bld) [Vol rate/Area]Ordered By: Mari Springer on 09-22-2024 Estimated GFR (MDRD) Non-Af Amer 100 >60 [facility] Comment on above: mL/min/1.73m2 CKD-EP I Creatinine Equation (2020) Hematocrit Auto (Bld) [Volum e fraction]Ordered By: Mari Springer on 09-22-2024 Hematocrit (Bld) [Volume fraction] 42.8 % 37-47 [facility] Hemoglobin measurementOrdere d By: Mari Springer on 09-22-2024 Hemoglobin (Bld) [Mass/Vol] 14.1 g/dL 12.0-15.0 [facility] Laboratory - Chemistry and C hemistry - challengeOrdered By: Mari Springer on 09-22-2024 AST [Catalytic activity/Vol] 22 U/L <32 [facility] MCV (mean corpuscular volume ) determinationOrdered By: Mari Springer on 09-22-2024 MCV (RBC) [Entitic vol] 92.2 fL 81-99 [facility] Mean corpuscular hemoglobin (MCH) determinationOrdered By: Mari Springer on 09-22-2024 MCH (RBC) [Entitic mass] 30.4 pg 27.0-32.0 [facility] Mean corpuscular hemoglobin concentration (MCHC) determinationOrdered By: Mari Springer on 09-22-2024 MCHC (RBC) [Mass/Vol] 32.9 g/dL 32-36 [facility] Mean platelet volume determi nationOrdered By: Mari Springer on 09-22-2024 Platelet mean volume (Bld) [Entitic vol] 8.7 fL 6.2-12.0 [facility] [employer] Office Visit Reporton 09-22-2024 [employer] Operator Office Visit Report [facility] [address], [address] [place] [address] OFFICE VISIT Date of Service: 09/22/24 MR#: [id number] Acct: [id number] Name: QUINTEN KRISHNAN Rep #: [id number] : 1965 Provider: Dr. Mari Ruiz DO Age/Sex: 59/F Location: [facility] [place] Status: Signed Intake Vital Signs 08/24/24 13:12 09/22/24 10:52 09/22/24 10:52 Height 5 ft 1 in 5 ft 1 in 5 ft 1 in Weight: 198 lb 4 oz 202 lb BMI 37.4 38.1 BP 120/79 145/85 H Intake Visit Reasons: D C possible myomectomy Industrial Engineering Technologist Required: No Is patient in pain?: No Allergies No Known Allergies Allergy (Verified 09/22/24 10:47) Medications ???Medication ???Instructions ???Recorded ???Confirmed ???Type biotin 1 mg capsule 1 mg PO QDAY 08/24/24 09/22/24 His tory cholecalciferol (vitamin D3) 50 50 mcg PO QDAY 08/24/24 09/22/24 H istory mcg (2,000 unit) capsule fexofenadine 180 mg tablet 180 mg PO DAILY 09/15/24 09/22/24 History (Clari Allergy) lisinopril 10 mg tablet 10 mg PO DAILY 09/15/24 09/22/24 H istory meloxicam 7.5 mg tablet 7.5 mg PO DAILY 09/15/24 09/22/24 History Post menopausal: No Patient : No : No PFSH Medical History Post-menopausal Non-smoker Seasonal allergies Hypertension Surgical History History of hysteroscopy Hx of bilateral breast reduction surgery History of tonsillectomy Hx of breast biopsy delivery delivered Family History Mother Hypertension Father Hypertension Cancer prostate- remission Grandfather Heart disease Grandmother Heart disease Social History Smoking Status: Never smoker alcohol intake: never substance use type: does not use caffeine: Yes what type of physical activity do you participate in: none seatbelt use: always do you feel safe at home: Yes 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 She is status post D C in 2022 and the endometrium upon exam was seen to be atrophic. She returns today with a history of a 1 week long episode of needing to wear a pad. ultrasound now shows a 7.1mm endometrium and possible fibroid in the endometrium. She is scheduled for a hysteroscopy D C on 09/29/24. She is status post a breast reduction in July and healing well. History 2 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 Date Name GA/Weeks Outcome Route Bth Weight Gen Labor Lgth Anesthesia Del Locatn Provider FOB Unknown 1993 Emily live - full term Unknown Chloeke live - full term ROS Const ROS Unobtainable: All systems reviewed are unremarkable except as noted in H Resp Resp: Reports system reviewed and no additional complaints, except as documented; Denies cough GI GI: Reports as per HPI Psych Psych: Reports system reviewed and no additional complaints, except as documented Exam Const General: cooperative, healthy appearing, comfortable and no acute distress Resp Effort Inspection: normal respiratory effort Skin General: no rashes or lesions noted Psych Appearance: grossly normal Speech and Movement: speech and movement normal Coding Level of Care Code Off vis,est,level 4 Diagnoses Fibroid uterus D25.9 Postmenopausal bleeding N95.0 Assessment and Plan Assessment and Plan (1) Fibroid uterus: Status: Acute (2) Postmenopausal bleeding: Status: Acute Comment: post evaluation Plan After discussing the patient's diagnosis and treatment plan options, patient wishes to proceed with surgical management. I have discussed with the patient the risks, benefits, and alternatives of the procedure which include but are not limited to risks of anesthesia, bleeding, infection, possible damage to bowel, bladder, or surrounding vasculature which could lead to additional surgery to evaluate any complications. Patient agrees to procedure and wishes to proceed. ACOG/uptodate references given for additional information regarding procedure. plan hysteroscopy dilation and curettage, possible myomectomy 09/22/24 1116 Date Mari Hensley DO [facility] Signature: Date (if applicable) CC: Normal [facility] Platelet countOrdered By: Douglas Springer on 09-22-2024 Platelets (Bld) [#/Vol] 244 10*3/uL 150-450 [facility] Potassium (Unsp spec) [Mass/ Vol]Ordered By: Mari Springer on 09-22-2024 Potassium [Moles/Vol] 4.5 mmol/L 3.3-5.1 [facility] RBC Auto (Bld) [#/Vol]Ordere d By: Mari Springer on 09-22-2024 RBC (Bld) [#/Vol] 4.64 10*6/uL 4.2-5.4 [facility] Serum creatinine measurement (mass/volume)Ordered By: Mari Springer on 09-22-2024 Creatinine [Mass/Vol] 0.69 mg/dL Low 0.70-1.20 [facility] Serum globulin measurementOr dered By: Mari Springer on 09-22-2024 Globulin (S) [Mass/Vol] 2.5 g/dL 2.2-4.2 [facility] Serum glucose measurement (m ass/volume)Ordered By: Mari Sprigner on 09-22-2024 Glucose [Mass/Vol] 98 mg/dL 70-99 [facility] Serum or plasma alanine wilson otransferase (ALT) measurementOrdered By: Mari Springer on 09-22-2024 ALT [Catalytic activity/Vol] 26 U/L <35 [facility] Serum or plasma albumin lauryn urement (mass/volume)Ordered By: Mari Springer on 09-22-2024 Albumin [Mass/Vol] 4.2 g/dL 3.5-5.0 [facility] Serum or plasma albumin/glob ulin mass ratioOrdered By: Mari Springer on 09-22-2024 Albumin/Globulin [Mass ratio] 1.7 {ratio} 0.9-2.4 [facility] Serum or plasma alkaline mitch sphatase measurementOrdered By: Mari Springer on 09-22-2024 ALP [Catalytic activity/Vol] 131 U/L High 35-104 [facility] Serum or plasma calcium lauryn urement (mass/volume)Ordered By: Mari Springer on 09-22-2024 Calcium [Mass/Vol] 9.4 mg/dL 7.6-11.0 [facility] Serum or plasma urea nitroge n measurement (mass/volume)Ordered By: Mari Springer on 09-22-2024 Urea nitrogen [Mass/Vol] 14 mg/dL 4-19 [facility] Sodium levelOrdered By: Joy Springer on 09-22-2024 Sodium [Moles/Vol] 139 mmol/L 133-145 [facility] Total proteinOrdered By: Danay Springer on 09-22-2024 Protein [Mass/Vol] 6.7 g/dL 5.9-8.4 [facility] White blood cell (WBC) count Ordered By: Mari Springer on 09-22-2024 WBC (Bld) [#/Vol] 5.2 10*3/uL 4.4-11.0 [facility] No Panel Informationon 08-31 SKIN TEST INTRADERMAL TB Normal [facility] SKIN TEST INTRADERMAL TB Negative Normal [facility] [employer] Operator Office Visit Reporton 08-24-2024 [employer] Operator Office Visit Report [facility] [address], [address] [place] [address] OFFICE VISIT Date of Service: 08/24/24 MR#: [id number] Acct: [id number] Name: QUINTEN KRISHNAN Rep #: [id number] : 1965 Provider: Dr. Mari Ruiz, Age/Sex: 59/F Location[place] [facility] [place] Status: Signed Intake Vital Signs 05/03/23 10:13 08/24/24 13:12 Height 5 ft 1 in 5 ft 1 in Weight: 198 lb 4 oz BMI 37.4 BP 120/79 Intake Visit Reasons: PMB, review US Industrial Engineering Technologist Required: No Is patient in pain?: No Allergies No Known Allergies Allergy (Verified 08/24/24 13:10) Medications ???Medication ???Instructions ???Recorded ???Confirmed ???Type biotin 1 mg capsule 1 mg PO QDAY 08/24/24 08/24/24 His tory cholecalciferol (vitamin D3) 50 50 mcg PO QDAY 08/24/24 08/24/24 H istory mcg (2,000 unit) capsule Post menopausal: No Patient : No : No PFSH Medical History Post-menopausal Non-smoker Seasonal allergies Hypertension Surgical History History of tonsillectomy Hx of breast biopsy delivery delivered Family History Mother Hypertension Father Hypertension Cancer prostate- remission Grandfather Heart disease Grandmother Heart disease Social History (Updated 08/24/24 @ 13:14 by Mel Hernandez) Smoking Status: Never smoker alcohol intake: never substance use type: does not use caffeine: Yes what type of physical activity do you participate in: none seatbelt use: always do you feel safe at home: Yes 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 She is status post D C in 2022 and the endometrium upon exam was seen to be atrophic. She returns today with a history of a 1 week long episode of needing to wear a pad. ultrasound now shows a 7.1mm endometrium and possible fibroid in the endometrium. She normally sees Dr. Hubbard and is asking if hysterectomy would be considered. History 2 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 Date Name GA/Weeks Outcome Route Bth Weight Gen Labor Lgth Anesthesia Del [facility] Provider FOB Unknown 1993 Emily live - full term Unknown davion live - full term ROS Const ROS Unobtainable: All systems reviewed are unremarkable except as noted in H Resp Resp: Reports system reviewed and no additional complaints, except as documented; Denies cough GI GI: Reports as per HPI Psych Psych: Reports system reviewed and no additional complaints, except as documented Exam Const General: cooperative, healthy appearing, comfortable and no acute distress Resp Effort Inspection: normal respiratory effort Skin General: no rashes or lesions noted Psych Appearance: grossly normal Speech and Movement: speech and movement normal Coding Level of Care Code Off vis,est,level 3 Diagnoses Postmenopausal bleeding N95.0 Fibroid uterus D25.9 Assessment and Plan Assessment and Plan (1) Postmenopausal bleeding: Status: Acute Comment: post evaluation Plan: patient needs another sampling of the endometrium. She would like to proceed with a D C, possible myomectomy with Dr. Hubbard and if this does not stop the bleeding then she wants a hysterectomy. Discussed this with Dr. hubbard who agrees. (2) Fibroid uterus: Status: Acute 08/24/24 1342 Date Mari Allenignjulio Signature: Date (if applicable) CC: Normal [facility] Pelvic w/ Transvaginalon Pelvic w/ Transvaginal [facility] Services [address] [place] [address] Pelvic w/ Transvaginal MR#: [id number] Acct: [id number] Name: QUINTEN KRISHNAN Rep #: [id number] : 1965 F 59 From: Giovany nash MD PCP: Dr[facility] Anival Flower MD [facility]/ Transvaginal Date of Exam: 08/19/24 Exam# [id number] Ordering Dr: Eladia Hubbard PROCEDURE: PELVIC W/ TRANSVAGINAL REASON FOR EXAM: Postmenopausal bleeding. TECHNIQUE: Transabdominal and transvaginal pelvic ultrasound COMPARISON: Comparison is made with prior study dated March 26, 2023. FINDINGS: Measurements: Uterus: 12.5 cm x 5.8 cm x 5.3 cm. Evidence of a 1.7 cm x 1.7 cm x 0.9 cm calcified fibroid. There is also evidence of a 1.6 cm x 0.9 cm x 1.2 cm fibroid. Endometrial Thickness: 7.1 mm. The endometrium has a trilaminar appearance. This is thickened. Right Ovary: Not visualized. Left Ovary: 5.6 cm x 5.4 cm x 4.2 cm. There is a 4.8 cm x 4.7 cm x 4.3 cm cyst. TRANSABDOMINAL: Uterus: Fibroid uterus. Endometrium: Thickened. This measures 7.1 mm. Right ovary: Not visualized. Left ovary: 4.8 cm x 4.77 x 4.3 cm simple cyst. No large pelvic mass identified. Transvaginal sonography was performed to better visualize the endometrium. TRANSVAGINAL: Uterus: Anteverted. Fibroid uterus. Endometrium: Endometrial thickening measuring 7.1 cm. Right ovary: Not visualized Left ovary: 4.8 cm x 4.77 x 4.3 cm simple cyst. Other adnexal findings: None. Cul-de-sac: No free intraperitoneal fluid identified. No tenderness. US/Pelvic w/ Transvaginal IMPRESSION: Fibroid uterus. Endometrial thickening. Left ovarian cyst. Follow-up recommended. Reading Location: [facility] CC: Dr. Anival Flower MD; Dr. 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 SKIN TEST INTRADERMAL TB Negative Normal [facility]. Basophil percentageOrdered B y: Eladia Hubbard on 04-11-2023 Bilirubin [Mass/Vol] 0.30 mg/dL 0.20-1.00 [facility] Comment on above: For patients on eltr ombopag therapy, use of [employer] [place] TBIL is not recommended. Chloride [Moles/Vol] 107 mmol/L 98-107 [facility] Glucose [Mass/Vol] 103 mg/dL 74-106 [facility] Comment on above: Fasting Glucose resu lt from 100 to 125 mg/dL suggests IMPAIRED HOMEOSTASIS per A.D.A. criteria. Potassium [Moles/Vol] 4.0 mmol/L 3.5-5.1 [facility] Protein [Mass/Vol] 6.6 g/dL 6.4-8.2 [facility] Sodium [Moles/Vol] 138 mmol/L 136-145 [facility] WBC (Bld) [#/Vol] 5.2 10*3/uL 4.4-11.0 [facility] Blood erythrocytes count (nu mber/volume)Ordered By: Eladia Hubbard on 04-11-2023 RBC (Bld) [#/Vol] 4.59 10*6/uL 4.2-5.4 [facility] Blood hemoglobin measurement (mass/volume)Ordered By: Eladia Hubbard on 04-11-2023 Hemoglobin (Bld) [Mass/Vol] 14.2 g/dL 12.0-15.0 [facility] Blood platelet mean volumeOr dered By: Eladia Hubbard on 04-11-2023 Platelet mean volume (Bld) [Entitic vol] 9.4 fL 6.2-12.0 [facility] Determination of erythrocyte mean corpuscular volume (MCV)Ordered By: Eladia Hubbard on 04-11-2023 MCV (RBC) [Entitic vol] 95.9 fL 81-99 [facility] Hematocrit Auto (Bld) [Volum e fraction]Ordered By: Eladia Hubbard on 04-11-2023 Hematocrit (Bld) [Volume fraction] 44.0 % 37-47 [facility] Laboratory - Chemistry and C hemistry - challengeOrdered By: Eladia Hubbard on 04-11-2023 ALP [Catalytic activity/Vol] 119 U/L 45-117 [facility] ALT [Catalytic activity/Vol] 39 U/L 13-56 [facility] CO2 [Moles/Vol] 29.0 mmol/L 21.0-32.0 [facility] Globulin (S) [Mass/Vol] 2.9 g/dL 2.2-4.2 [facility] Urea nitrogen/Creatinine [Mass ratio] 21.6 mg/mg 10-20 [facility] Laboratory - Hematology and Cell countsOrdered By: Eladia Hubbard on 04-11-2023 Erythrocyte distribution width (RBC) [Entitic vol] 43.2 fL 35.1-43.9 [facility] Erythrocyte distribution width (RBC) [Ratio] 12.2 % 11.6-14.6 [facility] MCH (RBC) [Entitic mass] 30.9 pg 27.0-32.0 [facility] MCHC Auto (RBC) [Mass/Vol]Or dered By: Eladia Hubbard on 04-11-2023 MCHC (RBC) [Mass/Vol] 32.3 g/dL 32-36 [facility] No Panel InformationOrdered By: Eladia Hubbard on 04-11-2023 Estimated GFR (MDRD) Amer 104 mL/min >60 [facility] Comment on above: GFR Calc Estimated GFR (MDRD) Non-Af Amer 86 mL/min >60 [facility] Comment on above: Non- GFR Calc Platelets bldOrdered By: Bran Hubbard on 04-11-2023 Platelets (Bld) [#/Vol] 239 10*3/uL 150-450 [facility] Serum or plasma albumin lauryn urement (mass/volume)Ordered By: Eladia Hubbard on 04-11-2023 Albumin [Mass/Vol] 3.7 g/dL 3.2-5.0 [facility] Serum or plasma albumin/glob ulin mass ratioOrdered By: Eladia Hubbard on 04-11-2023 Albumin/Globulin [Mass ratio] 1.3 {ratio} 0.9-2.4 [facility] Serum or plasma calcium lauryn urement (mass/volume)Ordered By: Eladia Hubbard on 04-11-2023 Calcium [Mass/Vol] 8.9 mg/dL 8.5-10.1 [facility] Serum or plasma creatinine m easurement (mass/volume)Ordered By: Eladia Hubbard on 04-11-2023 Creatinine [Mass/Vol] 0.74 mg/dL 0.55-1.02 [facility] Comment on above: The validity of the calculated GFR & GFRAA in patients over 70 years has not been determined. Clinical correlation is essential. Serum or plasma urea nitroge n measurement (mass/volume)Ordered By: Eladia Hubbard on 04-11-2023 Urea nitrogen [Mass/Vol] 16 mg/dL 7-18 [facility] Thin prep Papanicolaou smear with manual screeningOrdered By: Eladia Hubbard on 04-11-2023 Thin prep Papanicolaou smear with manual screening 17 U/L 15-37 [facility] Thin prep Papanicolaou smear with manual screening 2 5-15 [facility] No Panel InformationOrdered By: Eladia Hubbard on 03-18-2023 Follicle Stimulating Hormone 54.8 mIU/mL [facility] Comment on above: NORMAL REFERENCE RAN GES FEMALE FOLLICULAR 2.3 - 12.6 mIU/mL MID-CYCLE PEAK 5.2 - 17.5 mIU/mL LUTEAL 1.7 - 12.9 mIU/mL POST-MENOPAUSAL ON MHT 5.9 - 72.8 mIU/mL NOT ON MHT 12.7 - 132.2 mlU/mL MALE 0.7 - 10.8 mIU/mL Serum or plasma estradiol (E 2) measurement (mass/volume)Ordered By: Eladia Hubbard on 03-18-2023 E2 [Mass/Vol] pg/mL [facility] Comment on above: NORMAL REFERENCE RAN GES FEMALE FOLLICULAR 21.4 - 164.8 pg/mL MID-CYCLE PEAK 49.9 - 367.2 pg/mL LUTEAL 40.2 - 259.0 pg/mL POST-MENOPAUSAL ON MHT <11.0 - 462.1 pg/mL NOT ON MHT <11.0 - 58.3 pg/mL MALE <11.0 - 52.5 pg/mL NOTE:[employer] HAS CONFIRMED THE DRUG FULVETRANT (FASLODEX) MAY CAUSE FALSELY ELEVATED ESTRADIOL RESULTS WHEN USING THIS TEST METHOD. IF PATIENT IS TAKING FULVESTRANT AN ALTERNATIVE METHOD SHOULD BE USED TO DETERMINE ESTRADIOL CONCENTRATION. No Panel Informationon 08-21 SKIN TEST INTRADERMAL TB Negative [facility] [employer] [facility]. No Panel Informationon 10-05 SKIN TEST INTRADERMAL TB Negative Normal [place] [facility].; [employer]. Laboratory - Chemistry and C hemistry - challengeon 03-12-2020 Calcium [Mass/Vol] 9.6 mg/dL Normal 8.6 - 10. 4 mg/dL [facility] [employer]. Chloride [Moles/Vol] 109 mmol/L Normal 98 - 11 0 mmol/L [facility].; [employer]. CO2 [Moles/Vol] 24 mmol/L Normal 20 - 32 mmol/L [place] [facility].; [employer]. Creatinine [Mass/Vol] 0.85 mg/dL Normal 0.50 - 1.05 mg/dL [place] [facility].; [employer], [employer]. GFR/1.73 sq M.predicted among blacks MDRD (S/P/Bld) [Vol rate/Area] 90 mL/min/{1.73_m2} Normal [facility] [employer].; [employer]. Glucose [Mass/Vol] 81 mg/dL Normal 65 - 99 mg/dL [employer]. Potassium [Moles/Vol] 4.4 mmol/L Normal 3.5 - 5.3 mmol/L [place] [employer]. Sodium [Moles/Vol] 141 mmol/L Normal 135 - 146 mmol/L [place] [employer]. Urea nitrogen [Mass/Vol] 20 mg/dL Normal 7 - 25 mg/dL [employer]. No Panel Informationon 03-12 BUN/CREATININE RATIO NOT APPLICABLE Normal 6 - 22 [employer]. eGFR NON-AFR. AZERBAIJANI 78 Normal [facility] [employer]. No Panel Informationon 08-24 SKIN TEST INTRADERMAL TB Normal [employer]. Office Visit: est annualon 1 Fall risk assessment No Invalid Interpretation Code [facility] Tobacco smoking status [facility] Never Invalid Interpretation Code [facility] Tobacco smoking status [facility] Never smoker Invalid Interpretation Code [facility] No Panel Informationon 08-08 SKIN TEST INTRADERMAL TB Negative Normal [employer]. No Panel Informationon 08-16 SKIN TEST INTRADERMAL TB Negative Normal [employer]. Laboratory - Microbiology an d Antimicrobial susceptibilityon 11-11-2013 MeV IgG IA Qn (S) 3.83 {INDEX} Normal [employer]. MuV IgG IA Qn (S) 2.49 {INDEX} Normal [facility] [employer]. No Panel Informationon 08-17 SKIN TEST INTRADERMAL TB Normal [employer]. No Panel Informationon 09-08 SKIN TEST INTRADERMAL TB Negative Normal [employer]. No Panel Informationon 08-13 SKIN TEST INTRADERMAL TB Negative Normal [facility].; [facility]. No Panel Informationon 07-31 SKIN TEST INTRADERMAL TB Normal [facility].; [facility], [employer] Vital Signs Date Time Vital Sign Value Performing Clinician Facility 02-01-2025 13:06-0400 Body height 154.[address] Anival Flower MD Work Phone: [facility] 02-01-2025 13:06-0400 Body mass index (BMI) [Ratio] 39.2 kg/m2 Dr. Anival Flower MD Work Phone: [facility] 02-01-2025 13:06-0400 Body weight 94.[address] Anival Flower MD Work Phone: [facility] 02-01-2025 13:06-0400 Diastolic blood pressure 84 mm[Hg] Dr. Anival Flower MD Work Phone: [facility] 02-01-2025 13:06-0400 Systolic blood pressure 162 mm[Hg] Dr. Anival Flower MD Work Phone: [facility] 01-06-2025 07:51-0400 Body height 154.94 cm Amilcar Schmitz ICT SYSTEMS TEST ENGINEER [facility] 01-06-2025 07:51-0400 Diastolic blood pressure 83 mm[Hg] Amilcar Schmitz ICT SYSTEMS TEST ENGINEER [facility] Comment on above: Patient Position: Sitting; Cuff Location : Left Arm; Cuff Size: Standard 01-06-2025 07:51-0400 Heart rate 92 /min Amilcar Schmitz LPN [facility] Comment on above: Pattern: Regular 01-06-2025 07:51-0400 Systolic blood pressure 138 mm[Hg] Amilcar Schmitz LPN [facility] [employer] Comment on above: Patient Position: Sitting; Cuff Location : Left Arm; Cuff Size: Standard 11-24-2024 14:28-0400 Body mass index (BMI) [Ratio] 39.2 kg/m2 Dr. Anival Flower MD Work Phone: 6(160)593-843045 [address] 11-24-2024 14:28-0400 Body weight 94.[address] Anival Flower MD Work Phone: 2(496)402-306827 [place] [address] 11-24-2024 14:28-0400 Diastolic blood pressure 86 mm[Hg] Dr. Anival Flower MD Work Phone: 6(764)488-793527 [place] [address] 11-24-2024 14:28-0400 Systolic blood pressure 149 mm[Hg] Dr. Anival Flower MD Work Phone: 4(077)700-796827 [place] [address] 11-05-2024 08:33-0400 Body height 154.[address] Anival Flower MD Work Phone: 7(204)811-261527 [place] [address] 11-05-2024 08:23-0400 Body mass index (BMI) [Ratio] 38.7 kg/m2 Dr. Anival Flower MD Work Phone: 0(347)208-068027 [place] [address] 11-05-2024 08:23-0400 Body weight 92.[address] Anival Flower MD Work Phone: 0(753)934-900127 [place] [address] 11-05-2024 08:23-0400 Diastolic blood pressure 80 mm[Hg] Dr. Anival Flower MD Work Phone: 9(923)951-671027 [place] [address] 11-05-2024 08:23-0400 Systolic blood pressure 142 mm[Hg] Dr. Anival Flower MD Work Phone: 6(804)227-533127 [place] [address] 10-20-2024 09:37-0400 Body mass index (BMI) [Ratio] 38.7 kg/m2 Dr. Anival Flower MD Work Phone: 0(320)144-361227 [place] [address] 10-20-2024 09:37-0400 Body weight 93.[address] Anival Flower MD Work Phone: 7(918)172-066027 [place] [address] 10-20-2024 09:37-0400 Diastolic blood pressure 92 mm[Hg] Dr. Anival Flower MD Work Phone: 5(147)256-764227 [place] [address] 10-20-2024 09:37-0400 Systolic blood pressure 161 mm[Hg] Dr. Anival Flower MD Work Phone: 4(111)011-744827 [place] [address] 09-29-2024 14:12-0400 Body temperature 97.6 [degF] Dr. Anival Flower MD Work Phone: 2(057)387-064527 [place] [address] 09-29-2024 14:12-0400 Diastolic blood pressure 82 mm[Hg] Dr. Anival Flower MD Work Phone: 1(734)272-757827 [place] [address] 09-29-2024 14:12-0400 Heart rate 91 /min Dr. Anivla Flower MD Work Phone: 3(278)170-235327 [place] [address] 09-29-2024 14:12-0400 Respiratory rate 16 /min Dr. Anival Flower MD Work Phone: 4(715)175-501827 [place] [address] 09-29-2024 14:12-0400 SaO2% (BldA) [Mass fraction] 96 % Dr. Anival Flower MD Work Phone: 8(877)576-253327 [place] [address] 09-29-2024 14:12-0400 Systolic blood pressure 136 mm[Hg] Dr. Anival Flower MD Work Phone: 2(779)912-886427 [place] [address] 09-29-2024 14:00-0400 Inhaled oxygen flow rate 2 L/min Dr. Anival Flower MD Work Phone: 3(318)675-185927 [place] [address] 09-29-2024 10:58-0400 Body height 154.[address] Anival Flower MD Work Phone: 9(883)923-069627 [place] [address] 09-29-2024 10:58-0400 Body mass index (BMI) [Ratio] 37.9 kg/m2 Dr. Anival Flower MD Work Phone: 2(918)100-141027 [place] [address] 09-29-2024 10:58-0400 Body weight [address] Anival Flower MD Work Phone: 8(300)996-606427 [place] [address] 09-22-2024 10:52-0500 Body mass index (BMI) [Ratio] 38.1 kg/m2 Dr. Anival Flower MD Work Phone: 1(440)277-870827 [place] [address] 09-22-2024 10:52-0500 Body weight 91.[address] Anival Flower MD Work Phone: 6(091)552-572227 [place] [address] 09-22-2024 10:52-0500 Diastolic blood pressure 85 mm[Hg] Dr. Anival Flower MD Work Phone: [facility] 09-22-2024 10:52-0500 Systolic blood pressure 145 mm[Hg] Dr. Anival Flower MD Work Phone: [facility] 08-24-2024 13:12-0500 Body mass index (BMI) [Ratio] 37.4 kg/m2 Dr. Anival Flower MD Work Phone: [facility] 08-24-2024 13:12-0500 Body weight 89.[address] Anival Flower MD Work Phone: [facility] 08-24-2024 13:12-0500 Diastolic blood pressure 79 mm[Hg] Dr. Anival Flower MD Work Phone: [facility] 08-24-2024 13:12-0500 Systolic blood pressure 120 mm[Hg] Dr. Anival Flower MD Work Phone: [facility] 10-07-2023 08:25-0400 Body temperature 96.5 [degF] Anival Flower MD Work Phone: [facility]; [facility] 10-07-2023 08:25-0400 Inhaled oxygen concentration 20 % Anival Flower MD Work Phone: [facility]; [email or web address] Comment on above: Room air 10-07-2023 08:25-0400 Inhaled oxygen concentration 21 % Anival Flower MD Work Phone: [facility]; [email or web address]. Comment on above: Room air 10-07-2023 08:25-0400 SaO2% (BldA) [Mass fraction] 99 % Anival Flower MD Work Phone: [facility]; [facility] 05-15-2023 07:32-0400 Body weight 81.65 kg Amilcar Schmitz LPN [facility].; [facility] 05-15-2023 07:32-0400 Diastolic blood pressure 82 mm[Hg] Amilcar Schmitz LPN [facility]. Comment on above: Patient Position: Sitting; Cuff Location : Left Arm; Cuff Size: Standard 05-15-2023 07:32-0400 Heart rate 94 /min Amilcar Schmitz ICT SYSTEMS TEST ENGINEER [facility] Comment on above: Pattern: Regular 05-15-2023 07:32-0400 Systolic blood pressure 126 mm[Hg] Amilcar Schmitz ICT SYSTEMS TEST ENGINEER [facility]. Comment on above: Patient Position: Sitting; Cuff Location : Left Arm; Cuff Size: Standard 05-03-2023 10:13-0400 Body height 154.[address] Anival Flower Work Phone: 3(896)734-230045 [address] 05-03-2023 10:10-0400 Body mass index (BMI) [Ratio] 38.8 kg/m2 Dr. Anival Flower Work Phone: 2(191)060-526479 [place] [address] 05-03-2023 10:10-0400 Body weight 93.[address] Anival Flower Work Phone: 0(157)885-465945 [address] 05-03-2023 10:10-0400 Diastolic blood pressure 84 mm[Hg] Dr. Anival Flower Work Phone: 4(602)275-643045 [address] 05-03-2023 10:10-0400 Systolic blood pressure 140 mm[Hg] Dr. Anival Flower Work Phone: 8(265)428-054045 [address] 04-16-2023 09:24-0400 Body temperature 97.2 [degF] Dr. Anival Flower Work Phone: 1(712)127-063645 [address] 04-16-2023 09:24-0400 Diastolic blood pressure 78 mm[Hg] Dr. Anival Flower Work Phone: 1(348)678-023679 [place] [address] 04-16-2023 09:24-0400 Heart rate 81 /min Dr. Anival Flower Work Phone: 4(051)223-426879 [place] [address] 04-16-2023 09:24-0400 Respiratory rate 17 /min Dr. Anival Flower Work Phone: [facility] 04-16-2023 09:24-0400 SaO2% (BldA) [Mass fraction] 96 % Dr. Anival Flower Work Phone: 9(049)039-553979 [place] [address] 04-16-2023 09:24-0400 Systolic blood pressure 115 mm[Hg] Dr. Anival Flower Work Phone: [facility] 04-16-2023 06:30-0400 Body height 154.[address] Anival Flower Work Phone: 3(380)794-960445 [address] 04-16-2023 06:30-0400 Body mass index (BMI) [Ratio] 37.9 kg/m2 Dr. Anival Flower Work Phone: 1(118)505-003145 [address] 04-16-2023 06:30-0400 Body weight [address] Anival Flower Work Phone: 0(480)855-021145 [address] 04-01-2023 16:03-0400 Body height 154.[address] Anival Flower Work Phone: 5(489)244-500645 [address] 04-01-2023 16:02-0400 Body mass index (BMI) [Ratio] 38 kg/m2 Dr. Anival Flower Work Phone: 6(025)713-352045 [address] 04-01-2023 16:02-0400 Body weight 91.[address] Anival Flower Work Phone: 4(442)332-955945 [address] 04-01-2023 16:02-0400 Diastolic blood pressure 77 mm[Hg] Dr. Anival Flower Work Phone: 6(370)317-106679 [place] [address] 04-01-2023 16:02-0400 Systolic blood pressure 153 mm[Hg] Dr. Anival Flower Work Phone: 7(170)325-826979 [place] [address] 03-18-2023 10:01-0400 Body height 154.[address] Anival Flower Work Phone: [facility] 03-18-2023 10:01-0400 Body mass index (BMI) [Ratio] 38.9 kg/m2 Dr. Anival Flower Work Phone: [facility] 03-18-2023 10:01-0400 Body weight 93.[address] Anival Flower Work Phone: [facility] 03-18-2023 10:01-0400 Diastolic blood pressure 80 mm[Hg] Dr. Anival Flower Work Phone: [facility] 03-18-2023 10:01-0400 Systolic blood pressure 158 mm[Hg] Dr. Anival Flower Work Phone: [facility] 10-23-2021 07:57-0400 Body height 154.94 cm Anival Flower MD Work Phone: [employer]. 10-23-2021 07:57-0400 Body mass index (BMI) [Ratio] 33.63 kg/m2 Anival Flower MD Work Phone: [employer]. 10-23-2021 07:57-0400 Body surface area Derived from formula 1.8 m2 Anival Flower MD Work Phone: [employer]. 10-23-2021 07:57-0400 Body weight 80.74 kg Anival Flower MD Work Phone: [employer]. 10-23-2021 07:57-0400 Diastolic blood pressure 87 mm[Hg] Anival Flower MD Work Phone: [employer]. Comment on above: Patient Position: Sitting; Cuff Location : Left Arm; Cuff Size: Large 10-23-2021 07:57-0400 Heart rate 78 /min Anival Flower MD Work Phone: [employer]. Comment on above: Pattern: Regular 10-23-2021 07:57-0400 Systolic blood pressure 110 mm[Hg] Anival Flower MD Work Phone: [employer]. Comment on above: Patient Position: Sitting; Cuff Location : Left Arm; Cuff Size: Large 03-12-2020 09:49-0400 Body weight 81.65 kg Anival Flower MD Work Phone: [employer].; [employer]. 03-12-2020 09:49-0400 Diastolic blood pressure 85 mm[Hg] Anival Flower MD Work Phone: [employer]. Comment on above: Patient Position: Sitting; Cuff Location : Left Arm; Cuff Size: Large 03-12-2020 09:49-0400 Heart rate 77 /min Anival Flower MD Work Phone: [employer]. Comment on above: Pattern: Regular 03-12-2020 09:49-0400 Systolic blood pressure 131 mm[Hg] Anival Flower MD Work Phone: [employer]. Comment on above: Patient Position: Sitting; Cuff Location : Left Arm; Cuff Size: Large 06-12-2019 11:33-0500 Body temperature 98.2 [degF] Anival Flower MD Work Phone: [employer]. Comment on above: Method: Tympanic 06-12-2019 11:33-0500 Body weight 81.65 kg Anival Flower MD Work Phone: [employer].; [employer]. 06-12-2019 11:33-0500 Diastolic blood pressure 90 mm[Hg] Anival Flower MD Work Phone: [employer]. Comment on above: Patient Position: Sitting; Cuff Location : Right Arm; Cuff Size: Standard 06-12-2019 11:33-0500 Heart rate 85 /min Anival Flower MD Work Phone: [employer]. Comment on above: Pattern: Regular 06-12-2019 11:33-0500 Inhaled oxygen concentration 20 % Anival Flower MD Work Phone: [employer]; [employer]. Comment on above: Room air 06-12-2019 11:33-0500 Inhaled oxygen concentration 21 % Anival Flower MD Work Phone: [employer]. Comment on above: Room air 06-12-2019 11:33-0500 SaO2% (BldA) [Mass fraction] 96 % Anival Flower MD Work Phone: [employer]. 06-12-2019 11:33-0500 Systolic blood pressure 152 mm[Hg] Anival Flower MD Work Phone: [employer]. Comment on above: Patient Position: Sitting; Cuff Location : Right Arm; Cuff Size: Standard 04-30-2017 09:34-0400 BMI (Body Mass Index) 35.22 kg/m2 Nataliia Burgess NP [facility] 04-30-2017 09:34-0400 Body Temperature 97.1 [degF] Nataliia Burgess [facility] 04-30-2017 09:34-0400 Body Temperature 97.11 [degF] Nataliia Burgess NP [facility] 04-30-2017 09:34-0400 BP Diastolic 84 mm[Hg] Nataliia Burgess [facility] 04-30-2017 09:34-0400 BP Systolic 143 mm[Hg] Nataliia Burgess NP [facility] 04-30-2017 09:34-0400 Height 154.94 cm Nataliia Burgess NP [facility] 04-30-2017 09:34-0400 Pulse (Heart Rate) 89 /min Nataliia Burgess NP [facility] 04-30-2017 09:34-0400 Respiratory Rate 16 /min Nataliia Burgess NP [facility] 04-30-2017 09:34-0400 Weight 84.55 kg Nataliia Burgess NP [facility] 03-06-2017 09:21-0400 Diastolic blood pressure 86 mm[Hg] Ana Paula Moncada LPN [email or web address] [employer]. Comment on above: Patient Position: Sitting; Cuff Location : Left Arm; Cuff Size: Large 03-06-2017 09:21-0400 Heart rate 92 /min Ana Paula Moncada [facility] [employer]. Comment on above: Pattern: Regular 03-06-2017 09:21-0400 Systolic blood pressure 137 mm[Hg] Ana Paula Moncada ICT SYSTEMS TEST ENGINEER [employer]. Comment on above: Patient Position: Sitting; Cuff Location : Left Arm; Cuff Size: Large 04-28-2013 11:26-0400 Diastolic blood pressure 88 mm[Hg] Anival Flower MD Work Phone: [employer]. Comment on above: Patient Position: Sitting; Cuff Location : Left Arm; Cuff Size: Large 04-28-2013 11:26-0400 Heart rate 106 /min Anival Flower MD Work Phone: [employer]. Comment on above: Pattern: Regular 04-28-2013 11:26-0400 Systolic blood pressure 148 mm[Hg] Anival Flower MD Work Phone: [employer]. Comment on above: Patient Position: Sitting; Cuff Location : Left Arm; Cuff Size: Large 02-18-2013 11:28-0400 Diastolic blood pressure 70 mm[Hg] Anival Flower MD Work Phone: [employer]. Comment on above: Patient Position: Sitting; Cuff Location : Left Arm; Cuff Size: Large 02-18-2013 11:28-0400 Heart rate 94 /min Anival Flower MD Work Phone: [employer]. Comment on above: Pattern: Regular 02-18-2013 11:28-0400 Systolic blood pressure 124 mm[Hg] Anival Flower MD Work Phone: [employer]. Comment on above: Patient Position: Sitting; Cuff Location : Left Arm; Cuff Size: Large 08-21-2011 10:49-0500 Body temperature 98.1 [degF] Anival Flower MD Work Phone: [employer]; [employer]. Comment on above: Method: Tympanic 08-21-2011 10:49-0500 Diastolic blood pressure 90 mm[Hg] Anival Flower MD Work Phone: [employer]. Comment on above: Patient Position: Sitting; Cuff Location : Left Arm; Cuff Size: Large 08-21-2011 10:49-0500 Heart rate 98 /min Anival Flower MD Work Phone: [employer]. Comment on above: Pattern: Regular 08-21-2011 10:49-0500 Inhaled oxygen concentration 20 % Anival Flower MD Work Phone: [employer]; [employer]. Comment on above: Room air 08-21-2011 10:49-0500 Inhaled oxygen concentration 21 % Anival Flower MD Work Phone: [employer]; [employer]. Comment on above: Room air 08-21-2011 10:49-0500 SaO2% (BldA) [Mass fraction] 98 % Anival Flower MD Work Phone: [employer]; [employer]. 08-21-2011 10:49-0500 Systolic blood pressure 156 mm[Hg] Anival Flower MD Work Phone: [employer]; [employer]. Comment on above: Patient Position: Sitting; Cuff Location : Left Arm; Cuff Size: Large Encounters Encounter Date Encounter Type Care Provider Facility Start: 02-10-2025 Encounter for other preprocedural examination Mari Hensley [facility] Start: 02-01-2025 End: 02-01-[address] Mari Hensley [facility] Work Phone: Start: 02-01-2025 End: 02-01-[address] Anival Flower MD Work Phone: [facility] Start: 01-06-2025 End: 01-06-2025 Patient encounter procedure [facility]lower [facility] Start: 11-24-2024 End: 11-24-2024 ambulatory Mari Hensley Facility:[facility] Start: 11-24-2024 End: 11-24-[address] Mari Hensley DO [facility] Work Phone: Start: 11-05-2024 End: 11-05-[address] Anival Flower MD Work Phone: [facility] Work Phone: Start: 11-05-2024 End: 11-05-[address] Mari Hensley DO -[facility] Work Phone: Start: 11-05-2024 End: 11-05-[address] Mari Hensley DO [facility] Work Phone: Start: 11-05-2024 End: 11-05-2024 ambulatory Mari Hensley Facility:[facility] Start: 11-05-2024 End: 11-05-2024 ambulatory Mari Hensley Facility:[facility] Start: 10-29-2024 End: 10-29-2024 Orders Anival Flower MD [facility] Start: 10-29-2024 End: 10-29-2024 Patient encounter status Amilcar Schmitz LPN [facility]; [facility] Start: 10-21-2024 End: 10-21-2024 Medication Anival Flower MD [facility] Start: 10-20-2024 End: 10-20-[address] Mari Hensley DO [facility] Work Phone: Start: 10-20-2024 End: 10-20-2024 ambulatory Mari Hensley Facility:[facility] Start: 09-29-2024 ambulatory Mari Hensley Fa cility:[facility] Start: 09-29-2024 Non-patient / Non-visit Dr. Douglas Hensley DO -[facility] Start: 09-29-2024 End: 09-29-2024 Admission to same day surgery center Dr. Mari Hensley DO [facility] Start: 09-29-2024 End: 09-29-[address] Anival Flower MD Work Phone: [facility] Work Phone: Start: 09-22-2024 End: 09-22-[address] Mari Hensley DO [facility] Work Phone: Start: 09-22-2024 End: 09-22-2024 ambulatory Anival Flower Facility:[facility] Start: 09-22-2024 End: 09-22-2024 Non-patient / Non-visit Dr. Himanshu Schulte MD -[facility] Work Phone: Start: 08-31-2024 End: 09-01-2024 Orders [facility]lower MD Work [facility]: [email or web address] Start: 08-24-2024 End: 08-24-2024 ambulatory Anival Flower Facility:[facility] Start: 08-24-2024 End: 08-24-[address] Mari Hensley DO [facility] Work Phone: Start: 08-19-2024 End: 08-19-[address] Eladia Hubbard MD -[facility], [facility] Work Phone: Start: 08-19-2024 End: 08-19-2024 ambulatory Eladia Hubbard Facility:[facility] Start: 07-20-2024 End: 07-20-2024 Orders Anival Flower MD Work Phone[email or web address] Start: 04-02-2024 End: 04-02-2024 Medication [email or web address] Start: 03-12-2024 End: 03-12-2024 Medication Anival Flower MD [facility]: [email or web address] Start: 03-09-2024 End: 03-09-2024 Patient encounter procedure Anival Flower MD [facility]: [email or web address] Start: 01-09-2024 End: 01-09-2024 Medication Anival Flower MD [email or web address] Start: 10-07-2023 End: 10-07-2023 Medication Anival Flower MD [facility]: [email or web address] Start: 09-09-2023 End: 09-10-2023 Orders Anival Flower MD Work [facility]: [email or web address] Start: 08-09-2023 End: 08-09-[address] Anival Flower Work Phone: [facility] Work Phone: Start: 08-09-2023 End: 08-09-[address] Anival Flower Work Phone: [facility]-Outpatient Breast [facility] Work Phone: Start: 05-15-2023 End: 05-15-2023 Office outpatient visit 15 minutes Anival Flower MD [facility]: [facility] Start: 05-03-2023 End: 05-03-2023 Patient encounter procedure Dr. Anival Flower Work Phone: [facility] Work Phone: Start: 04-16-2023 Non-patient / Non-visit Dr. James Flower Work Phone: [facility] Start: 04-16-2023 End: 04-16-2023 Admission to same day surgery center Dr. Anival Flower Work Phone: [facility] Start: 04-16-2023 End: 04-16-[address] Anival Flower Work Phone: [facility] Work Phone: Start: 04-01-2023 End: 04-01-[address] Anival Flower Work Phone: [facility] Work Phone: Start: 03-26-2023 End: 03-26-[address] Anival Flower Work Phone: [facility] Work Phone: Start: 03-26-2023 End: 03-26-[address] Anival Flower Work Phone: [facility] Work Phone: Start: 03-18-2023 End: 03-18-[address] Anival Flower Work Phone: [facility] Work Phone: Start: 03-18-2023 End: 03-18-[address] Anival Flower Work Phone: [facility] Work Phone: Start: 11-28-2022 End: 11-28-2022 Medication Anival Flower MD Work Phone: [employer]. Start: 10-29-2022 End: 10-29-2022 Orders Anival Flower MD Work Phone: [employer]. Start: 10-17-2022 End: 10-17-2022 Orders Anival Flower MD Work Phone: [employer]. Start: 07-25-2022 End: 07-25-2022 Patient encounter procedure Anival Flower MD Work Phone: [employer] Start: 07-14-2022 End: 07-14-2022 Medication Anival Flower MD Work Phone: [employer]. Start: 06-04-2022 End: 06-04-2022 Historical Summary Anival Flower MD Work Phone: [employer] Start: 05-29-2022 End: 05-29-2022 Nursing evaluation of patient and report Anival Flower MD Work Phone: [employer] Start: 05-07-2022 End: 05-07-2022 Orders Anival Flower MD Work Phone: [employer]. Start: 10-23-2021 End: 10-23-2021 Patient encounter procedure Anival Flower MD Work Phone: [employer]. Start: 10-18-2021 End: 10-18-2021 Orders Anival Flower MD Work Phone: [employer] Start: 08-22-2021 End: 08-22-2021 Orders Anival Flower MD Work Phone: [employer]. Start: 08-21-2021 End: 08-21-2021 Medication Anival Flower MD Work Phone: [employer] Start: 07-06-2021 End: 07-06-2021 Nursing evaluation of patient and report Anival Flower MD Work Phone: [employer] Start: 04-24-2021 End: 04-24-2021 Orders Anival Flower MD Work Phone: [employer]. Start: 11-07-2020 End: 11-07-2020 Medication Anival Flower MD Work Phone: [employer] Start: 10-11-2020 End: 10-11-2020 Historical Summary Anival Flower MD Work Phone: [employer]. Start: 09-28-2020 End: 09-28-2020 Medication Anival Flower MD Work Phone: [employer] Start: 06-01-2020 End: 06-01-2020 Medication Anival Flower MD Work Phone: [employer] Start: 05-21-2020 End: 05-21-2020 Nursing evaluation of patient and report Anival Flower MD Work Phone: [employer] Start: 03-12-2020 End: 03-12-2020 Patient encounter procedure Anival Flower MD Work Phone: [employer] Start: 09-12-2019 End: 09-12-2019 Medication Anival Flower MD Work Phone: [employer] Start: 08-24-2019 End: 08-24-2019 Nursing evaluation of patient and report Anival Flower MD Work Phone: [employer] Start: 07-13-2019 End: 07-13-2019 Medication Anival Flower MD Work Phone: [employer] Start: 06-12-2019 End: 06-12-2019 Office outpatient visit 15 minutes Anival Flower MD Work Phone: [employer] Start: 06-11-2019 End: 06-11-2019 Orders Anival Flower MD Work Phone: [employer] Start: 05-06-2019 End: 05-06-2019 Nursing evaluation of patient and report Anival Flower MD Work Phone: [employer] Start: 11-05-2018 End: 11-05-2018 Orders Anival Flower MD Work Phone: [employer] Start: 05-31-2018 End: 05-31-2018 Nursing evaluation of patient and report Anival Flower MD Work Phone: [employer] Start: 04-23-2018 End: 04-23-2018 Orders Anival Flower MD Work Phone: [employer] Start: 03-26-2018 End: 03-26-2018 Medication Anival Flower MD Work Phone: [employer] Start: 06-27-2017 End: 06-27-2017 Historical Summary Anival Flower MD Work Phone: [employer] Start: 06-12-2017 End: 06-12-2017 Medication Anival Flower MD Work Phone: [employer]. Start: 06-11-2017 End: 06-11-2017 Medication Anival Flower MD Work Phone: [employer]. Start: 05-22-2017 End: 05-22-2017 Medication Anival Flower MD Work Phone: [employer]. Start: 05-01-2017 End: 05-01-2017 Medication Anival Flower MD Work Phone: [employer]. Start: 03-18-2017 End: 03-18-2017 Medication Anival Flower MD Work Phone: [employer]. Start: 03-06-2017 End: 03-06-2017 Medication Anival Flower MD Work Phone: [employer]. Start: 03-06-2017 End: 03-06-2017 Office outpatient visit 15 minutes Anival Flower MD Work Phone: [employer]. Start: 02-04-2017 End: 02-04-2017 Medication Anival Flower MD Work Phone: [employer]. Start: 11-21-2016 End: 11-21-2016 Orders Anival Flower MD Work Phone: [employer]. Start: 06-27-2016 End: 06-27-2016 Nursing evaluation of patient and report Anival lFower MD Work Phone: [employer]. Start: 12-21-2015 End: 12-21-2015 Orders Anival Flower MD Work Phone: [employer]. Start: 08-31-2015 End: 08-31-2015 Historical Summary Anival Flower MD Work Phone: [employer]. Start: 08-20-2015 End: 08-20-2015 Medication Anival Flower MD Work Phone: [employer]. Start: 06-08-2015 End: 06-08-2015 Nursing evaluation of patient and report Anival Flower MD Work Phone: [employer] Start: 05-26-2015 End: 05-26-2015 Office outpatient visit 15 minutes Anival Flower MD Work Phone: [employer]. Start: 05-04-2015 End: 05-04-2015 Medication Anival Flower MD Work Phone: [employer]. Start: 03-02-2015 End: 03-02-2015 Orders Anival Flower MD Work Phone: [employer]. Start: 12-29-2014 End: 12-29-2014 Medication Anival Flower MD Work Phone: [employer]. Start: 12-28-2014 End: 12-28-2014 Medication Anival Flower MD Work Phone: [employer]. Start: 12-01-2014 End: 12-01-2014 Orders Anival Flower MD Work Phone: [employer]. Start: 10-13-2014 End: 10-13-2014 Medication Anival Flower MD Work Phone: [employer]. Start: 10-02-2014 End: 10-02-2014 Medication Anival Flower MD Work Phone: [employer]. Start: 08-16-2014 End: 08-16-2014 Nursing evaluation of patient and report Anival Flower MD Work Phone: [employer]. Start: 08-03-2014 End: 08-03-2014 Office outpatient visit 15 minutes Anival Flower MD Work Phone: [employer]. Start: 06-28-2014 End: 06-28-2014 Medication Anival Flower MD Work Phone: [employer]. Start: 06-03-2014 End: 06-03-2014 Nursing evaluation of patient and report Anival Flower MD Work Phone: [employer]. Start: 03-15-2014 End: 03-15-2014 Orders Anival Flower MD Work Phone: [employer]. Start: 01-20-2014 End: 01-20-2014 Medication Anival Flower MD Work Phone: [employer]. Start: 12-28-2013 End: 12-28-2013 Orders Anival Flower MD Work Phone: [employer]. Start: 11-18-2013 End: 11-18-2013 Medication Anival Flower MD Work Phone: [employer]. Start: 11-17-2013 End: 11-17-2013 Medication Anival Flower MD Work Phone: [employer]. Start: 11-11-2013 End: 11-11-2013 Nursing evaluation of patient and report Anival Flower MD Work Phone: [employer]. Start: 10-02-2013 End: 10-02-2013 Medication Anival Flower MD Work Phone: [employer]. Start: 08-17-2013 End: 08-17-2013 Orders Anival Flower MD Work Phone: [employer]. Start: 06-20-2013 End: 06-20-2013 Medication Anival Flower MD Work Phone: [employer]. Start: 06-08-2013 End: 06-08-2013 Nursing evaluation of patient and report Anival Flower MD Work Phone: [employer] Start: 05-13-2013 End: 05-13-2013 Medication Anival Flower MD Work Phone: [employer]. Start: 04-28-2013 End: 04-28-2013 Patient encounter procedure Anival Flower MD Work Phone: [employer]. Start: 04-22-2013 End: 04-22-2013 Medication Anival Flower MD Work Phone: [employer]. Start: 02-18-2013 End: 02-18-2013 Patient encounter procedure Anival Flower MD Work Phone: [employer] Start: 01-12-2013 End: 01-12-2013 Medication Anival Flower MD Work Phone: [employer]. Start: 12-31-2012 End: 12-31-2012 Orders Anival Flower MD Work Phone: [employer]. Start: 09-26-2012 End: 09-26-2012 Medication Anival Flower MD Work Phone: [employer]. Start: 09-08-2012 End: 09-08-2012 Nursing evaluation of patient and report Anival Flower MD Work Phone: [employer]. Start: 05-29-2012 End: 05-29-2012 Nursing evaluation of patient and report Anival Flower MD Work Phone: [employer]. Start: 05-19-2012 End: 05-19-2012 Medication Anival Flower MD Work Phone: [employer]. Start: 03-26-2012 End: 03-26-2012 Orders Anival Flower MD Work Phone: [employer]. Start: 01-28-2012 End: 01-28-2012 Medication Anival Flower MD Work Phone: [employer]. Start: 01-14-2012 End: 01-14-2012 Medication Anival Flower MD Work Phone: [employer]. Start: 01-14-2012 End: 01-14-2012 Medication Anival Flower MD Work Phone: [employer]. Start: 01-04-2012 End: 01-04-2012 Medication Anival Flower MD Work Phone: [employer]. Start: 12-12-2011 End: 12-12-2011 Medication Anival Flower MD Work Phone: [employer]. Start: 11-22-2011 End: 11-22-2011 Medication Anival Flower MD Work Phone: [employer]. Start: 11-01-2011 End: 11-01-2011 Medication Anival Flower MD Work Phone: [employer]. Start: 10-31-2011 End: 10-31-2011 Medication Anival Flower MD Work Phone: [employer]. Start: 10-24-2011 End: 10-24-2011 Medication Anival Flower MD Work Phone: [employer]. Start: 10-09-2011 End: 10-09-2011 Medication Anival Flower MD Work Phone: [employer]. Start: 09-26-2011 End: 09-26-2011 Medication Anival Flower MD Work Phone: [employer]. Start: 09-11-2011 End: 09-11-2011 Orders Aniavl Flower MD Work Phone: [employer]. Start: 09-07-2011 End: 09-07-2011 Medication Anival Flower MD Work Phone: [employer]. Start: 08-28-2011 End: 08-28-2011 Medication Anival Flower MD Work Phone: [employer]. Start: 08-27-2011 End: 08-27-2011 Medication Anival Flower MD Work Phone: [employer]. Start: 08-25-2011 End: 08-25-2011 Medication Anival Flower MD Work Phone: [employer]. Start: 08-21-2011 End: 08-22-2011 Patient encounter procedure Anival Flower MD Work Phone: [employer]. Start: 08-13-2011 End: 08-13-2011 Nursing evaluation of patient and report Anival Flower MD Work Phone: [employer]. Start: 06-25-2011 End: 06-25-2011 Medication Anival Flower MD Work Phone: [employer]. Start: 06-11-2011 End: 06-11-2011 Medication Anival Flower MD Work Phone: [employer]. Start: 06-08-2011 End: 06-08-2011 Nursing evaluation of patient and report [facility]inval [facility]lower [email or web address] Start: 07-31-2010 End: 07-31-2010 Nursing evaluation of patient and report [facility]ival F[facility] MD [email or web address] Start: 06-26-2010 End: 06-26-2010 Medication Anival Flower MD [facility]: [email or web address] Start: 05-30-2010 End: 05-30-2010 Nursing evaluation of patient and report Anival Flower MD [facility]: [facility] Patient encounter status Amilcar Schmitz FRANK [facility] Procedures Date Procedure Procedure Detail Performing Clinician Start: 09-29-[address] Anival Flower MD Work Phone: Start: 08-19-[address] Dominguez Flower MD Work Phone: Start: 08-09-2023 Screening mammography Regina Flower Work Phone: Start: 04-16-2023 Hysteroscopy,D&C Symphion (Not Applicable) Dr. Anival Flower Work Phone: Start: 03-26-[address] Dominguez Flower Work Phone: Start: 10-29-2022 End: 12-25-2023 Screening mammography bi 2-view breast inc cad Anival Flower MD Work Phone: Start: 10-17-2022 End: 07-31-2023 Injection Anival Flower MD Work Phone: Start: 10-17-2022 End: 07-31-2023 Injection of steroid Anival Flower MD Work Phone: Start: 05-30-2022 End: 05-30-2022 FIT DNA test Anival Flower MD Work Phone: Comment on above: Negative Finding. Start: 05-29-2022 End: 05-29-2022 Flu immunize order/admin Ana Paula De Los Santos alexa [employer] Start: 05-07-2022 End: 06-04-2022 Oncology colorectal screening ashlyn 10 dna markrs Anival Flower MD Work Phone: Start: 10-18-2021 End: 07-31-2023 Administration of medication Anival Flower MD Work Phone: Start: 07-06-2021 End: 07-06-2021 Flu immunize order/admin Elise Avina PN Start: 05-21-2020 End: 05-21-2020 Flu immunize order/admin Ana Paula De Los Santos ey [employer] ENGINEER Start: 05-06-2019 End: 05-06-2019 Flu immunize order/admin Anival Tapia Work Phone: Start: 11-05-2018 End: 11-05-2018 Injection Anival Flower MD Work Phone: Start: 11-05-2018 End: 11-05-2018 Dexamethasone fred Flower MD Work Phone: Start: 05-31-2018 End: 05-31-2018 Flu immunize order/admin Ana Paula liu [employer] Start: 04-23-2018 End: 04-24-2018 Dexamethasone fred Flower MD Work Phone: Start: 04-30-2017 Gynecologic examination Routin e gynecological examination Nataliia Jenifer RESIDENT SERVICE COORDINATOR Start: 04-30-2017 Screening mammography Mammogra m yearly screening Nataliia Garcias RESIDENT SERVICE COORDINATOR Start: 04-30-2017 End: 04-30-2017 Documentation of current medications Nataliia Burgess RESIDENT SERVICE COORDINATOR Start: 03-06-2017 End: 03-06-2017 Simple repair scalp/neck/ax/genit/trun k 2.5cm/< Anival Flower MD Work Phone: Start: 11-21-2016 End: 11-21-2016 Dexamethasone fred Flower MD Work Phone: Start: 12-21-2015 End: 03-28-2016 Kwaku Flower MD Work Phone: Start: 03-02-2015 End: 03-03-2015 Kwaku Flower MD Work Phone: Start: 12-01-2014 End: 12-07-2014 Dexamethasone fred Flower MD Work Phone: Start: 03-15-2014 End: 04-01-2014 Dexamethasone sodium geovani Flower MD Work Phone: Start: 12-28-2013 End: 12-29-2013 Dexamethasone sodium geovani Flower MD Work Phone: Start: 01-01-2013 End: 01-01-2013 Triamcinolone acet inj NOS Anival Flower MD Work Phone: Start: 03-27-2012 End: 03-27-2012 Triamcinolone acet inj NOS Anival Flower MD Work Phone: Start: 12-12-2011 End: 12-12-2011 Dexamethasone sodium phos Tonya Freeman PA-C Work Phone: Start: 09-10-2011 End: 12-07-2011 Radex ankle complete minimum 3 views Elham Dean [employer] Work Phone: Plan of Treatment Date Care Activity Detail Author Start: 02-16-2025 ambulatory Ambulatory Facility:[facility] Start: 01-06-2025 Lipid panel LIPID PANEL (00072) Start: 06-Jan-2025 08:06-04:00 Request [employer] Start: 10-29-2024 Antibody mumps MMR (IgG) Panel (Measles, Mumps, Rubella) ([id number], [id number]) immune status Start: 29-Oct-2024 10:48-04:00 Request [employer] Start: 10-21-2024 Patient encounter procedure Medical; RTN OFFICE VISIT - rtn [employer] Start: 21-Oct-2024 07:40-04:00 MD Anival Flower Appointment Request [facility] [employer] Start: 09-29-2024 Anes hysteroscopy&/hysterosalpingo graphy w/bx ANESTH HYSTEROSCOPE/GRAPH [facility] Start: 09-29-2024 Hysteroscopy bx endometrium&/polypc w/wo d&c HYSTEROSCOPY BIOPSY [facility] Start: 09-29-2024 Patient discharge [facility] Start: 09-29-2024 Procedure discontinued [facility] Start: 09-29-2024 Ambulation without limitation [facility] Start: 09-29-2024 Medical regimen orders management [facility] Start: 09-29-2024 Medication education [facility] Start: 09-29-2024 Taking patient vital signs [facility] Start: 09-29-2024 Vital signs measurements [facility] Start: 09-29-2024 [facility] Start: 08-31-2024 Skin test tuberculosis intradermal SKIN TEST INTRADERMAL TB (35939) Start: 31-Aug-2024 Request [employer] Start: 09-09-2023 Skin test tuberculosis intradermal SKIN TEST INTRADERMAL TB (79695) Start: 09-Sep-2023 Request [employer] Start: 04-16-2023 Anes hysteroscopy&/hysterosalpingo graphy w/bx ANESTH HYSTEROSCOPE/GRAPH [facility] Start: 04-16-2023 Hysteroscopy bx endometrium&/polypc w/wo d&c HYSTEROSCOPY BIOPSY [facility] Start: 04-16-2023 Ambulation without limitation [facility] Start: 04-16-2023 Medical regimen orders management [facility] Start: 04-16-2023 Medication education [facility] Start: 04-16-2023 Patient discharge [facility] Start: 04-16-2023 Procedure discontinued [facility] Start: 04-16-2023 Taking patient vital signs [facility] Start: 04-16-2023 Vital signs measurements [facility] Start: 04-16-2023 [facility] Start: 10-23-2021 Lipid panel [facility] [employer] Start: 10-23-2021 Comprehensive metabolic panel [facility] [employer] Start: 04-24-2021 Radex wrist complete minimum 3 views Wrist x-ray, Right Complete ([id number]) Start: 24-Apr-2021 Intent [employer] Start: 04-30-2017 End: 04-30-2017 Mammogram, screening Mammogram, Screening, both breasts [facility] Start: 04-30-2017 End: 04-30-2017 Appointment Appointment [facility] Electrocardiographic procedure [facility] Patient referral [facility] Work Phone: Pelvis [facility] Pelvis transvaginal [facility] dexAMETHasone so d phos (bulk) 100 % powder Ordered: 12-Dec-2011 PATRICIA Freeman Intent [employer] dex[employer]ETHasone so d phos (bulk) 100 % powder Ordered: 27-Mar-2012 MD Anival Flower Intent [employer] dex[employer]ETHasone so d phos (bulk) 100 % powder Ordered: 01-Jan-2013 MD Anival Flower Intent [employer] dexAMETHasone so d phos (bulk) 100 % powder Ordered: 28-Dec-2013 MD Anival Flower [employer] dexAMETHasone so d phos (bulk) 100 % powder Ordered: 15-Mar-2014 MD Anival Flower [employer] dexAMETHasone so d phos (bulk) 100 % powder Ordered: 01-Dec-2014 MD Anival Flower Intent [employer] dex[employer]ETHasone so d phos (bulk) 100 % powder Ordered: 02-Mar-2015 MD Anival Flower Intent [employer] dexAMETHasone so d phos (bulk) 100 % powder Ordered: 21-Dec-2015 MD Anival Flower Intent [employer] dex[employer]ETHasone so d phos (bulk) 100 % powder Ordered: 21-Nov-2016 MD Anival Flower Intent [employer] dexAMETHasone so d phos (bulk) 100 % powder Ordered: 23-Apr-2018 MD Anival Flower [employer] dexAMETHasone so d phos (bulk) 100 % powder Ordered: 05-Nov-2018 MD Anival Flower Intent [facility] [employer] dexAMETHasone so d phos (bulk) 100 % powder Ordered: 17-Oct-2022 MD [facility]ival [facility]lower [email or web address] [employer]. Phenergan 50 mg/ mL injection solution Ordered: 18-Oct-2021 MD Anival Flower [email or web address] [employer]. Immunizations Immunization Date Immunization Notes Care Provider Fa cility 07-20-2024 influenza, seasonal, injectable, preservative free Anival Flower MD Work Phone: [email or web address] [employer]. Comment on above: Site: Left ArmVIS Gi janes: * Influenza (Flu) Vaccine (Inactivated or Recombinant) (02/24/21) 05-29-2022 influenza, injectabl e, quadrivalent, contains preservative Anival Flower MD Work Phone: [facility] [employer]. Comment on above: Site: Left DeltoidVI S Given: * Influenza Inactivated (02/24/21) 07-06-2021 influenza, injectabl e, quadrivalent, contains preservative Anival Flower MD Work Phone: [facility] [employer]. Comment on above: Site: Left DeltoidVI S Given: * Influenza - Inactivated (03/05/19) 11-17-2020 zoster vaccine recombinant Anival Flower MD Work Phone: [facility] [employer]; [employer]. 11-07-2020 Shingrix 50 MCG/0.5M L Intramuscular Suspension Reconstituted Anival Flower MD Work Phone: [employer] 09-02-2020 COVID-Moderna (100 MCG/0.5 ML) Anival Flower MD Work Phone: [employer]. Comment on above: HD 08-02-2020 COVID-Moderna (100 MCG/0.5 ML) Anival Flower MD Work Phone[email or web address]; [employer] Comment on above: Given at [facility] 05-21-2020 influenza, injectabl e, quadrivalent, contains preservative Anival Flower MD Work Phone: [email or web address] [employer] Comment on above: Site: Left DeltoidVI S Given: * Influenza - Inactivated (02/25/15) 05-06-2019 influenza, injectabl e, quadrivalent, contains preservative Anival Flower MD Work Phone: [facility] [employer]; [employer] Comment on above: Site: Left DeltoidVI S Given: * Influenza - Inactivated (02/25/15) 05-31-2018 influenza, injectabl e, quadrivalent, contains preservative Anival Flower MD Work Phone: [facility] [employer]; [employer] Comment on above: Site: Left DeltoidVI S Given: * Influenza - Inactivated (02/25/15) 06-27-2017 influenza, injectabl e, quadrivalent, contains preservative Anival Flower MD Work Phone: [facility] [employer]; [employer]. Comment on above: Site: Left DeltoidVI S Given: * Influenza - Inactivated (02/25/15) 03-06-2017 tetanus toxoid, redu jazmnie diphtheria toxoid, and acellular pertussis vaccine, adsorbed Anival Flower MD Work Phone: [facility] [employer]; [employer] Comment on above: Site: Deltoid (Left) VIS Given: * Tdap (Tetanus, Diphtheria, Pertussis) (09/14/14) 06-27-2016 influenza, injectabl e, quadrivalent, contains preservative Anival Flower MD Work Phone: [employer]; [employer] Comment on above: Site: Deltoid (Left) VIS Given: * Influenza - Inactivated (02/25/15) 06-27-2016 unknown vaccine or immune globulin Anival Flwoer MD Work Phone: [employer]; [employer]. 06-08-2015 influenza, seasonal, injectable Anival Flower MD Work Phone: [employer]; [employer]. Comment on above: Site: Deltoid (Left) VIS Given: * Inactivated Influenza (02/25/2015) 06-08-2015 IMMUNIZATION ADMIN ([id number]) Anival Flower MD Work Phone: [employer]; [employer]. 06-03-2014 influenza, seasonal, injectable Anival Flower MD Work Phone: [employer]; [employer]. Comment on above: Site: Deltoid (Left) VIS Given: * Influenza, Inactivated () 06-03-2014 IMMUNIZATION ADMIN ([id number]) Anival Flower MD Work Phone: [employer]; [employer]. 06-08-2013 influenza, seasonal, injectable Anival Flower MD Work Phone: [employer]; [employer]. Comment on above: Site: Deltoid (Left) VIS Given: * Inactivated Influenza Vaccine (03/01/09) * Inactivated Influenza Vaccine (02/13/11) * Influenza vaccine [id number], inactivated (01/21/2012) * Influenza, Inactivated () * VIS Given (Unspecified) 06-08-2013 IMMUNIZATION ADMIN ([id number]) Anival Flower MD Work Phone: [employer]; [employer]. 05-29-2012 influenza, seasonal, injectable Anival Flower MD Work Phone: [employer]. Comment on above: Site: Deltoid (Left) VIS Given: * Inactivated Influenza Vaccine (03/01/09) * Inactivated Influenza Vaccine (02/13/11) * Influenza vaccine [id number], inactivated (01/21/2012) * VIS Given (Unspecified) 05-29-2012 IMMUNIZATION ADMIN ([id number]) Anival Flower MD Work Phone: [employer]; [employer]. 06-08-2011 influenza, seasonal, injectable Anival Flower MD Work Phone: [facility] [employer]; [employer]. Comment on above: Site: Deltoid (Left) VIS Given: * Inactivated Influenza Vaccine (03/01/09) * Inactivated Influenza Vaccine (02/13/11) * Inactivated Influenza Vaccine (02/13/11) * Inactivated Influenza Vaccine (02/13/11) * Inactivated Influenza Vaccine (02/13/11) * Inactivated Influenza Vaccine (02/13/11) * Inactivated Influenza Vaccine (02/13/11) * Inactivated Influenza Vaccine (02/13/11) * VIS Given (Unspecified) * VIS Given (Unspecified) 06-08-2011 IMMUNIZATION ADMIN ([id number]) Anival Flower MD Work Phone: [employer]; [employer] 05-30-2010 influenza, seasonal, injectable Anival Flower MD Work Phone: [employer]; [employer]. Comment on above: Site: Deltoid (Left) VIS Given: * Inactivated Influenza Vaccine (03/01/09) 05-30-2010 IMMUNIZATION ADMIN ([id number]) Anival Flower MD Work Phone: [place] [employer]; [employer] Payers Date Payer Category Payer Self-pay [id number] 2024 Unknown [id number] Unknown [facility] PACKAGE PLAN [id number] Unknown [employer] Unknown [id number] 2.16.8 [id number] Unknown [id number] 2.16.8 [id number] Unknown [id number] 2.16.8 [id number] Unknown [id number] 2.16.8 [id number] Unknown [id number] 2.16.8 [id number] Unknown [id number] 2.16.8 [id number] Unknown [id number] 2.16.8 [id number] Unknown [id number] 2.16.8 [id number] Unknown [id number] 2.16.8 [id number] Unknown [id number] 2.16.8 [id number] Unknown [id number] 2.16.8 [id number] Unknown [id number] 2.16.8 [id number] Social History Date Type Detail Facility Start: 03-18-2023 End: 05-03-2023 Tobacco smoking status GAIS Unknown if ever smoked [facility] Start: 1965 Sex Assigned At Female [facility] Tobacco Use: Tobacco Use: ; N ever smoker. [facility] Start: 09-15-2024 Never smoked tobacco [facility] Start: 09-29-2024 End: 11-10-2024 Sex Female (finding) [facility] NEGATED: Highlighted row [facility] NEGATED: Highlighted row Not [facility] NEGATED: Highlighted row No Social History Information Available No Social History Information Available [facility] Work Phone: Goals Date Patient Goal Desired Activity /State Mental Status Date Assessment Result Facility 09-29-2024 Cognitive function Voice/Name [facility] Work Phone: 09-29-2024 Cognitive function Patient Orien tation Person;Place;Time [facility] Work Phone: 04-16-2023 Cognitive function Voice/Name [facility] Work Phone: Clinical Notes 04-16-2023 to 10-20-2024 Note Date & Type Note Facility 10-20-2024 Evaluation note Diagnosis Onset Date Resolution Fibroid uterus acute October 20, 2024 9:32am Postmenopausal bleeding acute A pril 2024 9:32am Postmenopausal bleeding acute A pril 2024 8:21am Cervical stenosis (uterine cervix) acute November 24, 2024 2 :08pm Fibroid uterus acute November 24, 2 025 2:08pm Postmenopausal bleeding acute M ay 2024 2:08pm HTN (hypertension) chronic November 2:08pm [facility] Work Phone: [phone]) [phone] History and physical note [facility] Medical Records Department [address] [place] [address] History & Physical Exam 09/29/24 1155 MR#: [id number] Acct: [id number] Name: QUINTEN KRISHNAN Rep #:[id number] : 1965 59 From: Mari Hensley DO PCP: Dr. Anival Flower MD Status:REG VA C Location: [place] [address] History and Physical Date of Admission: 09/29/24 Intake Vital Signs 08/24/2512:12 09/22/2509:52 09/22/2509:52 Height 5 ft 1 in 5 ft 1 in 5 ft 1 in Weight: 198 lb 4 oz 202 lb BMI 37.4 38.1 BP 120/79 145/85 H Intake Visit Reasons: D&C possible myomectomy Industrial Engineering Technologist Required: No Is patient in pain?: No Allergies No Known Allergies Allergy (Verified 09/22/24 10:47) Medications ?Medication ?Instructions ?Recorded ?Confirmed ?Type biotin 1 mg capsule 1 mg PO QDAY 08/24/24 09/22/24 History cholecalciferol (vitamin D3) 50 50 mcg PO QDAY 08/24/24 09/22/24 History mcg (2,000 unit) capsule fexofenadine 180 mg tablet 180 mg PO DAILY 09/15/24 09/22/24 Histor y (Clari Allergy) lisinopril 10 mg tablet 10 mg PO DAILY 09/15/24 09/22/24 History meloxicam 7.5 mg tablet 7.5 mg PO DAILY 09/15/24 09/22/24 Histor y Post menopausal: No Patient : No : No PFSH Medical History Post-menopausal Non-smoker Seasonal allergies Hypertension Surgical History History of hysteroscopy Hx of bilateral breast reduction surgery History of tonsillectomy Hx of breast biopsy delivery delivered Family History Mother HypertensionFather Hypertension Cancer prostate- remission Grandfather Heart diseaseGrandmother Heart disease Social History Smoking Status: Never smoker alcohol intake: never substance use type: does not use caffeine: Yes what type of physical activity do you participate in: none seatbelt use: always do you feel safe at home: Yes 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 She is status post D&C in 2022 and the endometrium upon exam was seen to be atrophic. She returns today with a history of a 1 week long episode of needing to wear a pad. ultrasound now shows a 7.1mm endometrium and possible fibroid in the endometrium. She is scheduled for a hysteroscopy D&C on 09/29/24. She is status post a breast reduction in July and healing well. History 2 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 Date Name GA/Weeks Outcome Route Bth Weight Infant Gen Labor Lgth Anesthesia Del Locatn Provider FOB Unknown 1993 Emily live - full term C-s ection Unknown Luke live - full term C-secti on ROS Const ROS Unobtainable: All systems reviewed & are unremarkable except as noted in H Resp Resp: Reports system reviewed and no additional complaints, except as documented; Denies cough GI GI: Reports as per HPI Psych Psych: Reports system reviewed and no additional complaints, except as documented Exam Const General: cooperative, healthy appearing, comfortable and no acute distress Resp Effort & Inspection: normal respiratory effort Skin General: no rashes or lesions noted Psych Appearance: grossly normal Speech and Movement: speech and movement normal Coding Level of Care Code Off vis,est,level 4 Diagnoses Fibroid uterus D25.9 Postmenopausal bleeding N95.0 Assessment and Plan Assessment and Plan (1) Fibroid uterus: Status: Acute (2) Postmenopausal bleeding: Status: Acute Comment: post evaluation Plan After discussing the patient's diagnosis and treatment plan options, patient wishes to proceed withsurgical management. I have discussed with the patient the risks, benefits, and alternatives of theprocedure which include but are notlimited to risks of anesthesia, bleeding, infection, possible damage to bowel, bladder, or surrounding vasculature which could lead to additional surgery to evaluate any complications. Patient agrees to procedure and wishes to proceed. ACOG/uptodate references given for additional information regarding procedure. plan hysteroscopy dilation and curettage, possible myomectomy 09/29/24 1155 Cosigner Signature (if applicable): CC: Dr. Mari Hensley DO; Dr. Anival Flower MD~ Signed [facility]03-11-2025 Discharge summary [facility] Note Date/Time September 29, 2024 12: 36pm [facility] Medical Records Department [address] [place] [address] Instructions for Home/Discharge Instructions 09/29/24 1232 MR#: [id number] Acct: [id number] Name: QUINTEN KRISHNAN Rep #:[id number] : 1965 59 From: Mari Hensley DO PCP: Dr. Anival Flower MD Status:REG SD C Discharge Instructions Diet Discharge Diet: No restrictions DC O2, CPAP, BIPAP needs Home O2 Discharge instructions: No Dressing / Incision Discharge Activity: Return to Normal Activity, May Shower and May Take a Tub Bath (after 1 week) May resume sexual activity in: 1-2 weeks Weight Bearing Status: Weight bearing as tolerated Lifting Restrictions: none Dressing / Incision Call your doctor if you observe: Fever of 101 or Higher, Using more than 1 pad per hour, Shortness of breath and Uncontrolled pain Follow Up Care Please Follow Up With: Mari Hensley DO When: Call [phone] to schedule appointment. Test Results: Test results from this visit will be discussed in further detail at your follow- up appointment, if applicable. Discharge Plan Admission Attending Provider: Mari Hensley Primary Care Provider: Anival Flower Instructions Print Language: Burmese Discharge Orders/Prescriptions Prescriptions: New ibuprofen 800 mg tablet 800 mg PO Q8H Qty: 3 9RF oxycodone-acetaminophen [Percocet] 5-325 mg tablet 1 tab PO Q4H PRN (Reason: pain) 3 Days Qty: 6 0RF Continued biotin 1 mg capsule 1 mg PO QDAY cholecalciferol (vitamin D3) 50 mcg (2,000 unit) capsule 50 mcg PO QDAY lisinopril 10 mg tablet 10 mg PO DAILY fexofenadine [Clari Allergy] 180 mg tablet 180 mg PO DAILY Held meloxicam 7.5 mg tablet 7.5 mg PO DAILY Hold Instructions: Resume on 10/03/24. Referrals / Follow Up: Anival Flower MD [Primary Care Provider] - Disposition Disposition (needs filled in before D/C Order can be placed): Home, Self Care 09/29/24 1236<Electronically signed by Mari Hensley DO>Mari Hensley DO CC: Dr. Anival Flower MD ~ Signed [facility] Work Phone: 1(459) 524-810603-11-2025 History and physical note Author [facility] Note Date/Time September 29, 2024 3:2 2pm [facility] Medical Records Department [address] [place] [address] History & Physical Exam 09/29/24 1155 MR#: [id number] Acct: [id number] Name: QUINTEN KRISHNAN Rep #:[id number] : 1965 59 From: Mari Hensley DO PCP: Dr. Anival Flower MD Status:REG SD C Location: [place] [address] History and Physical Date of Admission: 09/29/24 Intake Vital Signs 08/24/2512:12 09/22/2509:52 09/22/2509:52 Height 5 ft 1 in 5 ft 1 in 5 ft 1 in Weight: 198 lb 4 oz 202 lb BMI 37.4 38.1 BP 120/79 145/85 H Intake Visit Reasons: D&C possible myomectomy Industrial Engineering Technologist Required: No Is patient in pain?: No Allergies No Known Allergies Allergy (Verified 09/22/24 10:47) Medications ?Medication ?Instructions ?Recorded ?Confirmed ?Type biotin 1 mg capsule 1 mg PO QDAY 08/24/24 09/22/24 History cholecalciferol (vitamin D3) 50 50 mcg PO QDAY 08/24/24 09/22/24 History mcg (2,000 unit) capsule fexofenadine 180 mg tablet 180 mg PO DAILY 09/15/24 09/22/24 Histor y (Clari Allergy) lisinopril 10 mg tablet 10 mg PO DAILY 09/15/24 09/22/24 History meloxicam 7.5 mg tablet 7.5 mg PO DAILY 09/15/24 09/22/24 Histor y Post menopausal: No Patient : No : No PFSH Medical History Post-menopausal Non-smoker Seasonal allergies Hypertension Surgical History History of hysteroscopy Hx of bilateral breast reduction surgery History of tonsillectomy Hx of breast biopsy delivery delivered Family History Mother HypertensionFather Hypertension Cancer prostate- remission Grandfather Heart diseaseGrandmother Heart disease Social History Smoking Status: Never smoker alcohol intake: never substance use type: does not use caffeine: Yes what type of physical activity do you participate in: none seatbelt use: always do you feel safe at home: Yes 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 She is status post D&C in 2022 and the endometrium upon exam was seen to be atrophic. She returns today with a history of a 1 week long episode of needing to wear a pad. ultrasound now shows a 7.1mm endometrium and possible fibroid in the endometrium. She is scheduled for a hysteroscopy D&C on 09/29/24. She is status post a breast reduction in July and healing well. History 2 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 Date Name GA/Weeks Outcome Route Bth Weight Infant Gen Labor Lgth Anesthesia Del Locatn Provider FOB Unknown 1993 Emily live - full term C-s ection Unknown 197 Luke live - full term C-secti on ROS Const ROS Unobtainable: All systems reviewed & are unremarkable except as noted in H Resp Resp: Reports system reviewed and no additional complaints, except as documented; Denies cough GI GI: Reports as per HPI Psych Psych: Reports system reviewed and no additional complaints, except as documented Exam Const General: cooperative, healthy appearing, comfortable and no acute distress Resp Effort & Inspection: normal respiratory effort Skin General: no rashes or lesions noted Psych Appearance: grossly normal Speech and Movement: speech and movement normal Coding Level of Care Code Off vis,est,level 4 Diagnoses Fibroid uterus D25.9 Postmenopausal bleeding N95.0 Assessment and Plan Assessment and Plan (1) Fibroid uterus: Status: Acute (2) Postmenopausal bleeding: Status: Acute Comment: post evaluation Plan After discussing the patient's diagnosis and treatment plan options, patient wishes to proceed with surgical management. I have discussed with the patient the risks, benefits, and alternatives of the procedure which include but are notlimited to risks of anesthesia, bleeding, infection, possible damage to bowel, bladder, or surrounding vasculature which could lead to additional surgery to evaluate any complications. Patient agrees to procedure and wishes to proceed. ACOG/uptodate references given for additional information regarding procedure. plan hysteroscopy dilation and curettage, possible myomectomy 09/29/24 1155 <Electronically signed by Mari Hensley DO> Cosigner Signature (if applicable): CC: Dr. Mari Hensley DO; Dr. Anival Flower MD~ Signed [facility] Work Phone: 1(900) 714-451403-11-2025 Consult note [facility] Medical Records Department [address] [facility] [place] [address] Anesthesia Postop Eval I 09/29/24 1343 MR#: [id number] Acct: [id number] Name: QUINTEN KRISHNAN Rep #:[id number] : 1965 59 From: Rhoda Mandujano CRNA PCP: Dr. Anival Flower MD Status:REG SD C Y Race: C Location: [place] [address] Anesthesia: Postop Eval I Current Vital Signs Temperature: 97.8 F Pulse Rate: 99 Blood Pressure: 145/58 Respiratory Rate: 15 Pulse Ox: 97 Oxygen Delivery Method: Simple Mask Assessment Airway patent: Yes Spontaneous unlabored respirations: Yes Mental status: Awake nausea: No Vomiting: No Anesthesia Complication: No Fluid Hydration Crystalloid volume administer (ml): 500 Total IV fluid infused: 500 Progress Note Anesthesia document: Postop Eval 1 completed: Yes 09/29/24 1344 NA> Date _ Rhoda Mandujano CRNA Cosigner Signature: Date CC: ~ Signed [facility]03-11-2025 Consult note Author Familia Carrizales [facility] Note Date/Time September 29, 2024 11: 37am [facility] Medical Records Department [address] [place] [address] Pre-Anesthesia Evaluation 09/29/24 1126 MR#: [id number] Acct: [id number] Name: QUINTEN KRISHNAN Rep #:[id number] : 1965 59 From: Familia Carrizales MD PCP: Dr. Anival Flower MD Status:REG SD C Y Race: C Location: [facility]08-22 ASA Classification* ASA Classification ASA Classification: 2 Assessment & Plan Anesthesia* Anesthesia Assessment Anesthesia Assessment: Discussed sedation and/or anesthesia options, risks, benefits, and alternatives with patient/parents/legal guardian/POA. Questions invited. The patient/parents/legal guardian/POA seems to understand and agrees to proceedwith anesthesia plan. Reviewed the physical assessment, medical history, allergy history and patient home medications list prior to surgery/procedure/anesthetic and documented any changes. Performed airway and anesthesia risk assessments. Anesthesia Type Anesthesia Type: MAC (low threshold to convert to general. Discussed possibilityof general with the patient ) History Source History Obtained from:: Patient and Chart Anesthesia Focused Assessment* Temperature: 97.6 F Pulse Rate: 88 Blood Pressure: 163/87 Respiratory Rate: 16 Pulse Ox: 98 Oxygen Delivery Method: Room Air Airway Assessment Mouth opens: >3 cm Mallampati Score: II Teeth Condition: Intact Neck Range of motion (ROM): Full ROM Focused Labs Anesthesia Preop lab: CBC WBC 5.2 K/mm3 (4.4-11.0) 09/22/24 10:09/22/24 RBC 4.64 M/mm3 (4.2-5.4) 09/22/24 10:09/22/24 Hgb 14.1 g/dL (12.0-15.0) 09/22/24 10:09/22/24 Hct 42.8 % (37-47) 09/22/24 10:09/22/24 Plt Count 244 K/mm3 (150-450) 09/22/24 10:34 09/22/24 CHEMISTRY Potassium 4.5 mmol/L (3.3-5.1) 09/22/24 10:34 09/22/24 Sodium 139 mmol/L (133-145) 09/22/24 10:34 09/22/24 BUN 14 mg/dL (4-19) 09/22/24 10:09/22/24 Creatinine 0.69 mg/dL (0.70-1.20) L 09/22/24 10: Glucose 98 mg/dL (70-99) 09/22/24 10:09/22/24 COAG Pre-Assessment Diagnosis/Proposed Procedure Planned Operative Procedure(s): Hysteroscopy,Dilation and Curettage, Possible Myomectomy Anesthesia History Anesthesia History - data power consultant: Anesthesia History - data power consultant Hx Hospitalization No 09/15/24 09:18 Any Problems With Anesthesia No 09/15/24 09:18 Cholinesterase deficiency No 09/15/24 09:18 You/Your Family Experience No 09/15/24 09:18 fever (hyperthermia) with Relationship Recent Exposure to Contagious No 09/29/24 10:58 Disease Does patient have nerve No 09/15/24 09:18 stimulator Patient instructed to have device shut off --Does patient have Pacemaker No 09/29/24 10:58 or ICD? When Was Last Pacemaker Check QUESTION #4 FULL TEXT: You/Your Family Experience fever (hyperthermia) with Anesthesia Any additional information?: No Last Oral Intake Last Oral intake: Last Oral Intake NPO since 23:30 09/29/24 10:58 Meds taken in AM with sips of No 09/29/24 10:58 water? Meds patient instructed to take am of surgery Any additional information?: No PONV PONV - data power consultant: PONV - data power consultant Female Yes 09/15/24 09:18 HX of Motion Sickness Yes 09/15/24 09:18 HX of N/V After Surgery No 09/15/24 09:18 Non-Smoker Yes 09/15/24 09:18 Duration of Surgery greater Yes 09/15/24 09:18 than 60 minutes Number of Risk Factors 4 09/15/24 09:18 PONV Score Severe Risk 09/15/24 09:18 Any additional information?: No Height & Weight Height & Weight: Anesthesia: Height & Weight Height 5 ft 1 in 09/29/24 10:58 Weight: 91 kg 09/29/24 10:58 Body Mass Index (BMI) 37.9 09/29/24 10:58 Respiratory Assessment Respiratory Assessment - data power consultant: Respiratory Tract Infection Hx - data power consultant Hx Respiratory Tract Infection No 09/15/24 09:18 Any additional information?: No STOP Sleep Apnea STOP Sleep Apnea - data power consultant: STOP Sleep Apnea - data power consultant Hx Hypertension Yes: PER PT, CONTROLLED ON 09/15/24 09:18 MEDS Hx Sleep Apnea No 09/15/24 09:18 CPAP BIPAP Do you snore loudly (louder No 09/15/24 09:18 than talking or can be heard Do you often feel tired/ No 09/15/24 09:18 fatigued/ sleepy during daytime? Has anyone observed you stop No 09/15/24 09:18 breathing during sleep? STOP Results Negative 09/15/24 09:18 QUESTION #5 FULL TEXT : Do you snore loudly (louder than talking or can be heard through closed doors)? Any additional information?: No Tobacco Use History Tobacco Use History - data power consultant: Tobacco Use History - data power consultant Tobacco Use Smoking Status Never smoker 09/15/24 09:18 Hx Tobacco Use No 09/15/24 09:18 Years Smoking Packs Smoked per Day Smoking Cessation Date was within the last 15 years Hx Smoking Cessation Date Hx Smoking Cessation Counseling Any additional information?: No Hematologic Medial History Hematologic Hx - data power consultant: Hematologic Medical Hx - displayer Hx of Blood Transfusion No 09/15/24 09:18 Hx of Transfusion in last 3 No 09/15/24 09:18 Months Date of Last Transfusion (if within last 3 months) Ever experience any problems No 09/15/24 09:18 with transfusion(s)? Specify any problems Hx of Preganancy in last 3 No 09/15/24 09:18 Months Nurse Filling Out Transfusion VCHRISTIN 09/15/24 09:18 & Questions: Date: 09/15/24 09/15/24 09:18 Time: 09:19 09/15/24 09:18 Patient unable to answer at this time (ie. confused, unrespo Any additional information?: No /Reproduction History /Reproductive History - data power consultant: /Reproductive Hx- data power consultant Hx Now No 09/15/24 09:18 Gestational Age (in weeks): EDC: Hx Hx Para Hx Section SAB No 09/22/24 10:52 Any additional information?: No PFSH Medical History Post-menopausal Non-smoker Seasonal allergies Hypertension Home Medications ?Medication ?Instructions ?Recorded ?Last Taken ?Type biotin 1 mg capsule 1 mg PO QDAY 08/24/24 Unknow n History cholecalciferol (vitamin D3) 50 50 mcg PO QDAY 5 Unknown History mcg (2,000 unit) capsule fexofenadine 180 mg tablet 180 mg PO DAILY 09/15/24 Un known History (Clari Allergy) lisinopril 10 mg tablet 10 mg PO DAILY 09/15/24 Unkn own History meloxicam 7.5 mg tablet 7.5 mg PO DAILY 09/15/24 Unk nown History Allergy/AdvReac Type Severity Reaction Status Date / Time No Known Allergies Allergy Verified 09/29/24 10:57 Family History Mother Hypertension Father Hypertension Cancer prostate- remission Grandfather Heart disease Grandmother Heart disease Surgical History History of hysteroscopy Hx of bilateral breast reduction surgery History of tonsillectomy Hx of breast biopsy delivery delivered Social History Smoking Status: Never smoker alcohol intake: never substance use type: does not use caffeine: Yes what type of physical activity do you participate in: none seatbelt use: always do you feel safe at home: Yes 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 Physical Exam Const alert, oriented x3 and average body habitus Resp normal respiratory effort, normal air movement and clear to auscultation bilaterally Cardio regular rate, regular rhythm, no murmurs and diaphoretic 09/29/24 1137 <Electronically signed by Familia Carrizales MD> Date _ Familia Carrizales MD Cosigner Signature: Date CC: ~ Signed [facility] Work Phone: 1(408) 848-611803-11-2025 Procedure note [facility] Medical Records Department [address] [place] [address] Operative Report 09/29/24 1251 MR#: [id number] Acct: [id number] Name: QUINTEN KRISHNAN Rep #:[id number] : 1965 59 From: Mari Hensley DO PCP: Dr. Anival Flower MD Status:REG SD C Location: [place] [address]-1 Problems Associated Problem List Diagnoses (1) Fibroid uterus: (2) Postmenopausal bleeding: Multi Select Codes Urinary/Genital Urinary/Genital CPT Codes: 37018 Hysteroscopy, diagnostic Operative Report (Standard) Operative Information Date of Procedure: 09/29/24 Pre-Operative Diagnosis: postmenopausal bleeding, ultrasound finding of possiblepolyp or fibroid inthe endometrium Post-Operative Diagnosis: postmenopausal bleeding, ultrasound finding of possible polyp or fibroid in the endometrium Surgery/Procedure Performed: hysteroscopy 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 Type of Anesthesia: General and MAC RN Documented Start/Stop Times: Operation Date: 09/29/24 12:10 Case Time Into Pre-Op 09/29/24 10:46 Out of Pre-Op 09/29/24 12:30 Anesthesia Start 09/29/24 12:43 Into Room 09/29/24 12:43 Procedure Start 09/29/24 13:12 Procedure End 09/29/24 13:21 Procedure Start Time: 13:12 Procedure Stop Time: 13:21 Select all DRAINS/GRAFTS/IMPLANTS that apply: None Estimated Blood Loss: 5cc Specimen collected: Yes Description of specimen(s) removed: endometrial curetting's Description of surgery: Patient was prepped and draped in a normal sterile fashion under MAC anesthesia. A weighted speculum was placed in the vagina and the anterior lip of the cervixwas grasped with a single-tooth tenaculum. A paracervical block was placed with1% lidocaine. Cervix was progressively dilated to allow passage of a 5 mm hysteroscope. The lining was fully visualized and noted to be atrophic appearing and without mass . Uterine sounded to 10 cm. Curettage was performedand scant specimen was sent to pathology. All instruments were removed from the vagina and excellent hemostasis was noted. Patient was awoken and taken to recovery in stable condition. Surgical Findings: atrophic appearing endometrium without mass or polyp Complications Complications: No Admit VTE Documentation VTE Present on Admission: No VTE Mechan Device Prophylaxis: SCD's VTE Pharm Prophylaxis ordered?: No 09/29/24 3456 Cosigner Signature (if applicable): CC: Dr. Mari Hensley DO; Dr. Anival Flower MD~ Signed [facility]03-11-2025 Discharge summary [facility] Medical Records Department [address] [place] [address] Instructions for Home/Discharge Instructions 09/29/24 1232 MR#: [id number] Acct: [id number] Name: QUINTEN KRISHNAN Rep #:[id number] : 1965 59 From: Mari Hensley DO PCP: Dr. Anival Flower MD Status:REG SD C Discharge Instructions Diet Discharge Diet: No restrictions DC O2, CPAP, BIPAP needs Home O2 Discharge instructions: No Dressing / Incision Discharge Activity: Return to Normal Activity, May Shower and May Take a Tub Bath (after 1 week) May resume sexual activity in: 1-2 weeks Weight Bearing Status: Weight bearing as tolerated Lifting Restrictions: none Dressing / Incision Call your doctor if you observe: Fever of 101 or Higher, Using more than 1 pad per hour, Shortness of breath and Uncontrolled pain Follow Up Care Please Follow Up With: Mari Hensley DO When: Call [phone] to schedule appointment. Test Results: Test results from this visit will be discussed in further detail at your follow- up appointment, if applicable. Discharge Plan Admission Attending Provider: Mari Hensley Primary Care Provider: Anival Flower Instructions Print Language: Burmese Discharge Orders/Prescriptions Prescriptions: New ibuprofen 800 mg tablet 800 mg PO Q8H Qty: 3 9RF oxycodone-acetaminophen [Percocet] 5-325 mg tablet 1 tab PO Q4H PRN (Reason: pain) 3 Days Qty: 6 0RF Continued biotin 1 mg capsule 1 mg PO QDAY cholecalciferol (vitamin D3) 50 mcg (2,000 unit) capsule 50 mcg PO QDAY lisinopril 10 mg tablet 10 mg PO DAILY fexofenadine [Clari Allergy] 180 mg tablet 180 mg PO DAILY Held meloxicam 7.5 mg tablet 7.5 mg PO DAILY Hold Instructions: Resume on 10/03/24. Referrals / Follow Up: Anival Flower MD [Primary Care Provider] - Disposition Disposition (needs filled in before D/C Order can be placed): Home, Self Care 09/29/24 1236Jennifer Dora Springer DO CC: Dr. Anival Flower MD ~ Signed [facility]03-11-2025 [facility] Medical Records Department [address] [place] [address] History Physical Exam 09/29/24 1155 MR#: [id number] Acct: [id number] Name: QUINTEN KRISHNAN Rep #: [id number] : 1965 59 From: Mari Hensley DO PCP: Dr. 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: No Is patient in pain?: No Allergies No Known Allergies Allergy (Verified 09/22/24 10:47) Medications ???Medication ???Instructions ???Recorded ???Confirmed ???Type biotin 1 mg capsule 1 mg PO QDAY 08/24/24 09/22/24 History cholecalciferol (vitamin D3) 50 50 mcg PO QDAY 08/24/24 09/22/24 History mcg (2,000 unit) capsule fexofenadine 180 mg tablet 180 mg PO DAILY 09/15/24 09/22/24 History (Clari Allergy) lisinopril 10 mg tablet 10 mg PO DAILY 09/15/24 09/22/24 History meloxicam 7.5 mg tablet 7.5 mg PO DAILY 09/15/24 09/22/24 History Post menopausal: No Patient : No : No PFSH Medical History Post-menopausal Non-smoker Seasonal allergies Hypertension Surgical History History of hysteroscopy Hx of bilateral breast reduction surgery History of tonsillectomy Hx of breast biopsy delivery delivered Family History Mother HypertensionFather Hypertension Cancer prostate- remission Grandfather Heart diseaseGrandmother Heart disease Social History Smoking Status: Never smoker alcohol intake: never substance use type: does not use caffeine: Yes what type of physical activity do you participate in: none seatbelt use: always do you feel safe at home: Yes 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 She is status post D C in 2022 and the endometrium upon exam was seen to be atrophic. She returns today with a history of a 1 week long episode of needing to wear a pad. ultrasound now shows a 7.1mm endometrium and possible fibroid in the endometrium. She is scheduled for a hysteroscopy D C on 09/29/24. She is status post a breast reduction in July and healing well. History 2 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 Date Name GA/Weeks Outcome Route Bth Weight Infant Gen Labor Lgth Anesthesia Del [facility] Provider FOB Unknown 1993 Emily live - full term Unknown Thong live - full term ROS Const ROS Unobtainable: All systems reviewed are unremarkable except as noted in H Resp Resp: Reports system reviewed and no additional complaints, except as documented; Denies cough GI GI: Reports as per HPI Psych Psych: Reports system reviewed and no additional complaints, except as documented Exam Const General: cooperative, healthy appearing, comfortable and no acute distress Resp Effort Inspection: normal respiratory effort Skin General: no rashes or lesions noted Psych Appearance: grossly normal Speech and Movement: speech and movement normal Coding Level of Care Code Off vis,est,level 4 Diagnoses Fibroid uterus D25.9 Postmenopausal bleeding N95.0 Assessment and Plan Assessment and Plan (1) Fibroid uterus: Status: Acute (2) Postmenopausal bleeding: Status: Acute Comment: post evaluation Plan After discussing the patient's diagnosis and treatment plan options, patient wishes to proceed with surgical management. I have discussed with the patient the risks, benefits, and alternatives of the procedure which include but are not limited to risks of anesthesia, bleeding, infection, possible damage to bowel, bladder, or surrounding vasculature which could lead to additional surgery to evaluate any complications. Patient agrees to procedure and wishes to proceed. ACOG/uptodate references given for additional information regarding procedure. plan hysteroscopy dilation and curettage, possible myomectomy 09/29/24 1155 Cosigner Signature (if applicable): CC: Dr. Mari Hensley DO; Dr. Anival Flower MD [facility] Consult note [facility] Medical Records Department [address] [place] [address] Pre-Anesthesia Evaluation 09/29/24 1126 MR#: [id number] Acct: [id number] Name: QUINTEN KRISHNAN Rep #:[id number] : 1965 59 From: Familia Carrizales MD PCP: Dr. Anival Flower MD Status:REG SD C Y Race: C Location: [place] [address] ASA Classification* ASA Classification ASA Classification: 2 Assessment & Plan Anesthesia* Anesthesia Assessment Anesthesia Assessment: Discussed sedation and/or anesthesia options, risks, benefits, and alternatives with patient/parents/legal guardian/POA. Questions invited. The patient/parents/legal guardian/POA seems to understand and agrees to proceedwith anesthesia plan. Reviewed the physical assessment, medical history, allergy history and patient home medications list prior to surgery/procedure/anesthetic and documented any changes. Performed airway and anesthesia risk assessments. Anesthesia Type Anesthesia Type: MAC (low threshold to convert to general. Discussed possibilityof general with thepatient ) History Source History Obtained from:: Patient and Chart Anesthesia Focused Assessment* Temperature: 97.6 F Pulse Rate: 88 Blood Pressure: 163/87 Respiratory Rate: 16 Pulse Ox: 98 Oxygen Delivery Method: Room Air Airway Assessment Mouth opens: >3 cm Mallampati Score: II Teeth Condition: Intact Neck Range of motion (ROM): Full ROM Focused Labs Anesthesia Preop lab: CBC WBC 5.2 K/mm3 (4.4-11.0) 09/22/24 10:09/22/24 RBC 4.64 M/mm3 (4.2-5.4) 09/22/24 10:09/22/24 Hgb 14.1 g/dL (12.0-15.0) 09/22/24 10:09/22/24 Hct 42.8 % (37-47) 09/22/24 10:09/22/24 Plt Count 244 K/mm3 (150-450) 09/22/24 10:34 09/22/24 CHEMISTRY Potassium 4.5 mmol/L (3.3-5.1) 09/22/24 10:34 09/22/24 Sodium 139 mmol/L (133-145) 09/22/24 10:34 09/22/24 BUN 14 mg/dL (4-19) 09/22/24 10:34 09/22/24 Creatinine 0.69 mg/dL (0.70-1.20) L 09/22/24 10:34 Glucose 98 mg/dL (70-99) 09/22/24 10:34 09/22/24 COAG Pre-Assessment Diagnosis/Proposed Procedure Planned Operative Procedure(s): Hysteroscopy,Dilation and Curettage, Possible Myomectomy Anesthesia History Anesthesia History - data power consultant: Anesthesia History - data power consultant Hx Hospitalization No 09/15/24 09:18 Any Problems With Anesthesia No 09/15/24 09:18 Cholinesterase deficiency No 09/15/24 09:18 You/Your Family Experience No 09/15/24 09:18 fever (hyperthermia) with Relationship Recent Exposure to Contagious No 09/29/24 10:58 Disease Does patient have nerve No 09/15/24 09:18 stimulator Patient instructed to have device shut off --Does patient have Pacemaker No 09/29/24 10:58 or ICD? When Was Last Pacemaker Check QUESTION #4 FULL TEXT: You/Your Family Experience fever (hyperthermia) with Anesthesia Any additional information?: No Last Oral Intake Last Oral intake: Last Oral Intake NPO since 23:30 09/29/24 10:58 Meds taken in AM with sips of No 09/29/24 10:58 water? Meds patient instructed to take am of surgery Any additional information?: No PONV PONV - data power consultant: PONV - data power consultant Female Yes 09/15/24 09:18 HX of Motion Sickness Yes 09/15/24 09:18 HX of N/V After Surgery No 09/15/24 09:18 Non-Smoker Yes 09/15/24 09:18 Duration of Surgery greater Yes 09/15/24 09:18 than 60 minutes Number of Risk Factors 4 09/15/24 09:18 PONV Score Severe Risk 09/15/24 09:18 Any additional information?: No Height & Weight Height & Weight: Anesthesia: Height & Weight Height 5 ft 1 in 09/29/24 10:58 Weight: 91 kg 09/29/24 10:58 Body Mass Index (BMI) 37.9 09/29/24 10:58 Respiratory Assessment Respiratory Assessment - data power consultant: Respiratory Tract Infection Hx - data power consultant Hx Respiratory Tract Infection No 09/15/24 09:18 Any additional information?: No STOP Sleep Apnea STOP Sleep Apnea - data power consultant: STOP Sleep Apnea - data power consultant Hx Hypertension Yes: PER PT, CONTROLLED ON 09/15/24 09:18 MEDS Hx Sleep Apnea No 09/15/24 09:18 CPAP BIPAP Do you snore loudly (louder No 09/15/24 09:18 than talking or can be heard Do you often feel tired/ No 09/15/24 09:18 fatigued/ sleepy during daytime? Has anyone observed you stop No 09/15/24 09:18 breathing during sleep? STOP Results Negative 09/15/24 09:18 QUESTION #5 FULL TEXT : Do you snore loudly (louder than talking or can be heard through closeddoors)? Any additional information?: No Tobacco Use History Tobacco Use History - data power consultant: Tobacco Use History - data power consultant Tobacco Use Smoking Status Never smoker 09/15/24 09:18 Hx Tobacco Use No 09/15/24 09:18 Years Smoking Packs Smoked per Day Smoking Cessation Date was within the last 15 years Hx Smoking Cessation Date Hx Smoking Cessation Counseling Any additional information?: No Hematologic Medial History Hematologic Hx - data power consultant: Hematologic Medical Hx - displayer Hx of Blood Transfusion No 09/15/24 09:18 Hx of Transfusion in last 3 No 09/15/24 09:18 Months Date of Last Transfusion (if within last 3 months) Ever experience any problems No 09/15/24 09:18 with transfusion(s)? Specify any problems Hx of Preganancy in last 3 No 09/15/24 09:18 Months Nurse Filling Out Transfusion VCHRISTIN 09/15/24 09:18 & Questions: Date: 09/15/24 09/15/24 09:18 Time: 09:19 09/15/24 09:18 Patient unable to answer at this time (ie. confused, unrespo Any additional information?: No /Reproduction History /Reproductive History - data power consultant: /Reproductive Hx- data power consultant Hx Now No 09/15/24 09:18 Gestational Age (in weeks): EDC: Hx Hx Para Hx Section SAB No 09/22/24 10:52 Any additional information?: No PFSH Medical History Post-menopausal Non-smoker Seasonal allergies Hypertension Home Medications ?Medication ?Instructions ?Recorded ?Last Taken ?Type biotin 1 mg capsule 1 mg PO QDAY 08/24/24 Unknow n History cholecalciferol (vitamin D3) 50 50 mcg PO QDAY 5 Unknown History mcg (2,000 unit) capsule fexofenadine 180 mg tablet 180 mg PO DAILY 09/15/24 Un known History (Clari Allergy) lisinopril 10 mg tablet 10 mg PO DAILY 09/15/24 Unkn own History meloxicam 7.5 mg tablet 7.5 mg PO DAILY 09/15/24 Unk nown History Allergy/AdvReac Type Severity Reaction Status Date / Time No Known Allergies Allergy Verified 09/29/24 10:57 Family History Mother Hypertension Father Hypertension Cancer prostate- remission Grandfather Heart disease Grandmother Heart disease Surgical History History of hysteroscopy Hx of bilateral breast reduction surgery History of tonsillectomy Hx of breast biopsy delivery delivered Social History Smoking Status: Never smoker alcohol intake: never substance use type: does not use caffeine: Yes what type of physical activity do you participate in: none seatbelt use: always do you feel safe at home: Yes 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 Physical Exam Const alert, oriented x3 and average body habitus Resp normal respiratory effort, normal air movement and clear to auscultation bilaterally Cardio regular rate, regular rhythm, no murmurs and diaphoretic 09/29/24 1137 MD> Date _ Familia Carrizales MD Cosigner Signature: Date CC: ~ Signed [facility]02-03-2025 Evaluation note* Diagnosis Onset Date Resolution Status Admit Date Fibroid uterus acute August 242024 1:05pm Postmenopausal bleeding acute F ebruary 2024 1:05pm Fibroid uterus acute September 22, 2024 10:42am Postmenopausal bleeding acute [facility] 2024 10:42am Fibroid uterus acute September 10:43am Postmenopausal bleeding acute [facility] 2024 10:43am [facility] Work Phone: 1(936) 296-256102-03-2025 Evaluation note* Diagnosis Onset Date Resolution Status Admit Date Fibroid uterus acute August 242024 1:05pm Postmenopausal bleeding acute F ebruary 2024 1:05pm Fibroid uterus acute September 22, 2024 10:42am Postmenopausal bleeding acute [facility] 2024 10:42am Fibroid uterus acute September 10:43am Postmenopausal bleeding acute [facility] 2024 10:43am Fibroid uterus acute October 20, 2024 9:32am Postmenopausal bleeding acute A pril 2024 9:32am Postmenopausal bleeding acute A pril 2024 8:21am [facility] Work Phone: 1(465) 209-589409-26-2023 Discharge summary Author Eladia Hubbard [facility] April 16, 2023 8:05am Note Date/Time April 16, 2023 7:37am [facility] Medical Records Department [address] [place] [address] Instructions for Home/Discharge Instructions 04/16/23 0736 MR#: [id number] Acct: [id number] Name: QUINTEN KRISHNAN Rep #:[id number] : 1965 57 From: Eladia mccormick MD PCP: Dr. Anival Flower MD Status:REG SD C Discharge Instructions Diet Discharge Diet: No restrictions Activity Discharge Activity: Return to Normal Activity, May Shower and May Take a Tub Bath (after 1 week) May resume sexual activity in: 1-2 weeks Weight Bearing Status: Weight bearing as tolerated Lifting Restrictions: none Dressing / Incision Call your doctor if you observe: Fever of 101 or Higher, Using more than 1 pad per hour, Shortness of breath and Uncontrolled pain Follow Up Care Please Follow Up With: Eladia Hubbard MD When: Call [phone] to schedule appointment. Test Results: Test results from this visit will be discussed in further detail at your follow- up appointment, if applicable. Discharge Plan Admission Attending Provider: Eladia Hubbard Primary Care Provider: Anival Flower Discharge Orders/Prescriptions Prescriptions: No Action lisinopril 10 mg tablet 10 mg PO QHS misoprostol [Cytotec] 200 mcg tablet 200 mcg PO .complex Qty: 2 1RF Rx Instructions: take the night before and two hours prior to the procedure fexofenadine-pseudoephedrine [24HR Allergy-Congestion Relief] 180-240 mg tablet extended release 24 hr 1 tab PO DAILY Rhinocort Allergy 1 spray NASAL QHS Patient Comments: Both nostrils Other Ambulatory Orders: 12 Lead EKG (Routine) Timeframe: [id number] Location: None Selected Ordered By: Dr. Eladia Hubbard Referrals / Follow Up: Anival Flower MD [Primary Care Provider] - Disposition Disposition (needs filled in before D/C Order can be placed): Home, Self Care 04/16/23 0805<Electronically signed by Eladia Hubbard MD>Eladia Hubbard MD CC: Dr. Anival Flower MD ~ Signed [facility] Work Phone: 1(787) 580-938609-26-2023 History and physical note Author Eladia Hubbard [facility] April 16, 2023 7:32am Note Date/Time April 16, 2023 7:33am [facility] Medical Records Department [address] [place] [address] History & Physical Exam 04/16/23 0732 MR#: [id number] Acct: [id number] Name: QUINTEN KRISHNAN Rep #:[id number] : 1965 57 From: Eladia mccormick MD PCP: Dr. 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 Is patient in pain?: No Allergies No Known Allergies Allergy (Unverified 04/01/23 16:02) Medications lisinopril 10 mg tablet 10 mg PO DAILY 01/27/21 [History Confirmed 04/01/23] misoprostol 200 mcg tablet (Cytotec) 200 mcg PO .complex #2 tabs 04/05/23 [Rx Confirmed 04/05/23] Is last menstrual period known: No Patient : No : No PFSH Medical History Hypertension Surgical History delivery delivered History of tonsillectomy Hx of breast biopsy Family History Mother HypertensionFather Hypertension Cancer prostate- remission Grandfather Heart diseaseGrandmother Heart disease Social History Smoking Status: Never smoker alcohol intake: never substance use type: does not use caffeine: Yes what type of physical activity do you participate in: walking seatbelt use: always do you feel safe at home: Yes 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 labs in postmenopausal range and she has had intermittent spotting in the last few months, cervical stenosis present- unable to biopsy in the office. she denies any bloating or pelvic pain, last bleeding episode was last month and lasted a few days, light. she had a preivous episodeseveral months earlier History 2 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 Date Name GA/Weeks Outcome Route Bth Weight Infant Gen Labor Lgth Anesthesia Del Locatn Provider FOB Unknown 1993 Emily live - full term C-s ection Unknown 197 Thong live - full term C-secti on ROS Const Constitutional: Denies fatigue, fever(s), headache(s), increased appetite, poor appetite, weight gain or weight loss GI GI: Reports as per HPI; Denies abdominal pain, constipation, nausea or vomiting : Reports as per HPI; Denies difficulty voiding, dysuria, hematuria, pelvic pain, urinary frequency, urinary incontinence, urinary hesitancy, urinary urgency, vaginal discharge, vaginal dryness, vaginal odor, vaginal pruritus or other Exam Const General: cooperative, healthy appearing, comfortable, no acute distress and welldeveloped Orientation: alert HENMT Head: normal to inspection and normocephalic Ears: hearing grossly normal bilaterally and external ears normal Nose: external nose normal and nares normal Face and sinus: normal facial exam Neck Neck: normal visual inspection, no lymphadenopathy and trachea midline Thyroid: thyroid normal Resp Effort & Inspection: normal respiratory effort Musc Other: gross motor intact no deficits, full bilateral strength Skin General: no rashes or lesions noted Neuro Motor: muscle tone normal throughout Coding Level of Care Code Off vis,est,level 4 Diagnoses Cervical stenosis (uterine cervix) N88.2 Postmenopausal bleeding N95.0 Assessment and Plan Assessment and Plan (1) Cervical stenosis (uterine cervix): Status: Acute Comment: would need cytotec prior to d and c if needs surgery (2) Postmenopausal bleeding: Status: Acute Comment: recommend d and c hysteroscopy possible symphion Medications: New misoprostol (Cytotec) take the night before and two hours prior to the procedure 2 tabs 1RF Plan discussed options of repeat US and expectant management versus immediate surgery. After discussing the patient's diagnosis and treatment plan options, patient wishes to proceed with surgical management. I have discussed with the patient the risks, benefits, and alternatives of the procedure which include butare not limited to risks of anesthesia, bleeding, infection, possible damage to bowel, bladder, or surrounding vasculature which could lead to additional surgery to evaluate any complications. Patient agrees to procedure and wishes to proceed. ACOG/uptodate references given for additional information regardingprocedure. UPDATE- I have seen the patient and performed any clinically relevant updates to the history and physical exam. Eladia Hubbard MD 04/16/23 0732 <Electronically signed by Eladia Hubbard MD> Cosigner Signature (if applicable): CC: Dr. Anival Flower MD; Dr. Eladia Hubbard MD~ Signed [facility] Work Phone: 1(301) 376-916709-26-2023 [facility] Consult note Author Rhoda Mandujano [facility] Note Date/Time September 29, 2024 1:4 4pm [facility] Medical Records Department [address] [place] [address] Anesthesia Postop Eval I 09/29/24 1343 MR#: [id number] Acct: [id number] Name: QUINTEN KRISHNAN Rep #:[id number] : 1965 59 From: Rhoda Mandujano CRNA PCP: Dr. Anival Flower MD Status:REG SD C Y Race: C Location: [place] [address] Anesthesia: Postop Eval I Current Vital Signs Temperature: 97.8 F Pulse Rate: 99 Blood Pressure: 145/58 Respiratory Rate: 15 Pulse Ox: 97 Oxygen Delivery Method: Simple Mask Assessment Airway patent: Yes Spontaneous unlabored respirations: Yes Mental status: Awake nausea: No Vomiting: No Anesthesia Complication: No Fluid Hydration Crystalloid volume administer (ml): 500 Total IV fluid infused: 500 Progress Note Anesthesia document: Postop Eval 1 completed: Yes 09/29/24 1344 <Electronically signed by Rhoda THOMAS NA> Date _ Rhoda Carr Signature: Date CC: ~ Signed [facility] Work Phone: Evaluation note* Diagnosis Onset Date Resolution Status Abnormal menses acute Cervical stenosis (uterine cervix) acute Encounter for routine gynecological examination noneactive [facility] Work Phone: Evaluation note* Diagnosis Onset Date Resolution Status Cervical stenosis (uterine cervix) acute Abnormal menses resolved Encounter for routine gynecological examination noneactive Cervical stenosis (uterine cervix) acute Postmenopausal bleeding acut e Cervical stenosis (uterine cervix) acute Postmenopausal bleeding [facility] Work Phone: Evaluation note* Diagnosis Onset Date Resolution Status Cervical stenosis (uterine cervix) acute Postmenopausal bleeding acut e Cervical stenosis (uterine cervix) acute [facility] Reason for [facility] (narrative)No reason for referral information [facility] Work Phone: Chief Complaint and Reason for Visit Chief Complaint Annual (POST DOC FELLOWSHIP) Reason for Visit Abnormal menses Cervical stenosis (uterine cervix) Encounter for routine gynecological examination Chief Complaint Annual (POST DOC FELLOWSHIP) N92.6 D&C Reason for Visit Abnormal menses Cervical stenosis (uterine cervix) Encounter for routine gynecological examination Chief Complaint Annual (POST DOC FELLOWSHIP) N92.6 D&C Hysteroscopy,D&C Symphion Hysteroscopy,D&C Symphion Reason for Visit Cervical stenosis (u terine cervix) Abnormal menses Encounter for routine gynecological examination Cervical stenosis (uterine cervix) Postmenopausal bleeding Cervical stenosis (uterine cervix) Postmenopausal bleeding Chief Complaint Hysteroscopy,D&C Sym phion Hysteroscopy,D&C Symphion 2 wk post op D&C SCREEN Reason for Visit Cervical stenosis (u terine cervix) Postmenopausal bleeding Cervical stenosis (uterine cervix) Postmenopausal bleeding Chief Complaint Admit Date Postmenopausal bleeding August 19 2:13pm PMB, review US August 24, 2024 1 :05pm PREOP September 22, 2024 10:1 7am D&C possible myomectomy September 22, 2024 10:42am Hysteroscopy,Dilation and Curettage, Pos sible Myom September 29, 2024 10:43am Hysteroscopy,Dilation and Curettage, Pos sible Myom September 29, 2024 11:55am Reason for Visit Admit Date Fibroid uterus August 24, 2024 1 :05pm Postmenopausal bleeding August 24 1:05pm Fibroid uterus September 22, 2024 10:4 2am Postmenopausal bleeding September 22, 2024 10:42am Fibroid uterus September 29, 2024 10: 43am Postmenopausal bleeding September 29, 2024 10:43am Chief Complaint Admit Date Postmenopausal bleeding August 19 2:13pm PMB, review US August 24, 2024 1 :05pm PREOP September 22, 2024 10:1 7am D&C possible myomectomy September 22, 2024 10:42am Hysteroscopy,Dilation and Curettage, Pos sible Myom September 29, 2024 10:43am Hysteroscopy,Dilation and Curettage, Pos sible Myom September 29, 2024 11:55am 2 wk D&C possible Myomectomy October 20, 2024 9:32am Rpt EMB November 05, 2024 8:2 1am Reason for Visit Admit Date Fibroid uterus August 24, 2024 1 :05pm Postmenopausal bleeding August 24 1:05pm Fibroid uterus September 22, 2024 10:4 2am Postmenopausal bleeding September 22, 2024 10:42am Fibroid uterus September 29, 2024 10: 43am Postmenopausal bleeding September 29, 2024 10:43am Fibroid uterus October 20, 2024 9:32 am Postmenopausal bleeding October 20, 2024 9:32am Postmenopausal bleeding November 05, 2024 8:21am Chief Complaint Admit Date 2 wk D&C possible Myomectomy October 20, 2024 9:32am Rpt EMB November 05, 2024 8:2 1am Surgical Consult November 24, 2024 2:08pm TRHBSO Cysto February 01, 2025 1:03 pm Reason for Visit Admit Date Fibroid uterus October 20, 2024 9:32 am Postmenopausal bleeding October 20, 2024 9:32am Postmenopausal bleeding November 05, 2024 8:21am Cervical stenosis (uterine cervix) November 242024 2:08pm Fibroid uterus November 24, 2024 2:08pm Postmenopausal bleeding November 24, 2024 2: 08pm HTN (hypertension) November 24, 2024 2:08pm Family History No Family History Records Found Relationship Condition Age at Onset Recorded Date/T isiah mother Hypertension Unknown father Hypertension Unknown Malignant neoplasm Unknown grandfather Cardiac disease Unknown grandmother Cardiac disease Unknown Advance Directives No Advanced Directives Records Found Advance Directive Response Recorded Date/ Time Living Will No April 08, 2023 12:40pm 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 No September 15, 2024 10:18am Summary Purpose Additional Source Comments Care Teams (unrecognized sec tion and content) Team Status: Active Member Role Status Dates Dr. Anival Flower MD Family Provider Active Dr. Anival Flower MD Primary Care Provider Active Team Status: Inactive Member Role Status Dates Dr. Anival Flower MD Primary Care Provider, Referring Provider Active Dr. Eladia Hubbard MD Attending Provider Active Team Status: Inactive Member Role Status Dates Dr. Anival Flower MD Primary Care Provider Active Dr. Eladia Hubbard MD Attending Provider, Referr ing Provider Active Team Status: Active Member Role Status Dates Dr. Anival Flower MD Primary Care Provider Active Dr. Eladia Hubbard MD Attending Pr ovider, Referring Provider, Other Provider Active Team Status: Inactive Member Role Status Dates Dr. Anival Flower MD Primary Care Provid er, Attending Provider, Referring Provider Active Team Status: Active Member Role Status Dates Dr. Anival Flower MD Primary Care Provider Active Team Status: Inactive Member Role Status Dates Dr. Anival Flower MD Primary Care Provider Active Start: August 19, 2024 End: August 19, 2024 Dr. Eladia Hubbard MD Attending Provider Active Start: August 19, 2024 End: August 19, 2024 Dr. Eladia Hubbard MD Referring Provider Active Start: August 19, 2024 End: August 19, 2024 Team Status: Inactive Member Role Status Dates Dr. Anival Flower MD Primary Care Provider Active Start: August 24, 2024 End: August 24, 2024 Dr. Anival Flower MD Referring Provider Active S tart: August 24, 2024 End: August 24, 2024 Dr. Mari Hensley DO Attending Provider Activ e Start: August 24, 2024 End: August 24, 2024 Team Status: Active Member Role Status Dates Dr. Anival Flower MD Primary Care Provider Active Start: September 22, 2024 End: September 22, 2024 Dr. Himanshu Schulte MD Attending Provider Active Start: September 22, 2024 End: September 22, 2024 Dr. Mari Hensley DO Referring Provider Activ e Start: September 22, 2024 End: September 22, 2024 Team Status: Inactive Member Role Status Dates Dr. Anival Flower MD Primary Care Provider Active Start: September 22, 2024 End: September 22, 2024 Dr. Anival Flower MD Referring Provider Active S tart: September 22, 2024 End: September 22, 2024 Dr. Mari Hensley DO Attending Provider Activ e Start: September 22, 2024 End: September 22, 2024 Team Status: Inactive Member Role Status Dates Dr. Anival Flower MD Primary Care Provider Active Start: September 29, 2024 End: September 29, 2024 Dr. Mari Hensley DO Attending Provider Activ e Start: September 29, 2024 End: September 29, 2024 Dr. Mari Hensley DO Referring Provider Activ e Start: September 29, 2024 End: September 29, 2024 Team Status: Active Member Role Status Dates Dr. Anival Flower MD Primary Care Provider Active Start: September 29, 2024 Dr. Mari Hensley DO Attending Provider Activ e Start: September 29, 2024 Dr. Mari Hensley DO Referring Provider Activ e Start: September 29, 2024 Dr. Mari Hensley DO Other Provider Active Start: September 29, 2024 Team Status: Inactive Member Role Status Dates Dr. Anival Flower MD Primary Care Provider Active Start: October 20, 2024 End: October 20, 2024 Dr. Anival Flower MD Referring Provider Active S tart: October 20, 2024 End: October 20, 2024 Dr. Mari Hensley DO Attending Provider Activ e Start: October 20, 2024 End: October 20, 2024 Team Status: Inactive Member Role Status Dates Dr. Anival Flower MD Primary Care Provider Active Start: November 05, 2024 End: November 05, 2024 Dr. Anival Flower MD Referring Provider Active S tart: November 05, 2024 End: November 05, 2024 Dr. Mari Hensley DO Attending Provider Activ e Start: November 05, 2024 End: November 05, 2024 Team Status: Inactive Member Role Status Dates Dr. Anival Flower MD Primary Care Provider Active Start: November 05, 2024 End: November 05, 2024 Dr. Mari Hensley DO Attending Provider Activ e Start: November 05, 2024 End: November 05, 2024 Dr. Mari Hensley DO Referring Provider Activ e Start: November 05, 2024 End: November 05, 2024 Team Status: Active Member Role/Relationship Status Dates Dr. Anival Flower MD Primary Care Provider Active Team Status: Inactive Member Role/Relationship Status Dates Dr. Anival Flower MD Primary Care Provider Active Start: October 20, 2024 End: October 20, 2024 Dr. Anival Flower MD Referring Provider Active S tart: October 20, 2024 End: October 20, 2024 Dr. Mari Hensley DO Attending Provider Activ e Start: October 20, 2024 End: October 20, 2024 Team Status: Inactive Member Role/Relationship Status Dates Dr. Anival Flower MD Primary Care Provider Active Start: November 05, 2024 End: November 05, 2024 Dr. Anival Flower MD Referring Provider Active S tart: November 05, 2024 End: November 05, 2024 Dr. Mari Hensley DO Attending Provider Activ e Start: November 05, 2024 End: November 05, 2024 Team Status: Inactive Member Role/Relationship Status Dates Dr. Anival Flower MD Primary Care Provider Active Start: November 05, 2024 End: November 05, 2024 Dr. Mari Hensley DO Attending Provider Activ e Start: November 05, 2024 End: November 05, 2024 Dr. Mari Hensley DO Referring Provider Activ e Start: November 05, 2024 End: November 05, 2024 Team Status: Inactive Member Role/Relationship Status Dates Dr. Anival Flower MD Primary Care Provider Active Start: November 24, 2024 End: November 24, 2024 Dr. Anival Flower MD Referring Provider Active S tart: November 24, 2024 End: November 24, 2024 Dr. Mari Hensley DO Attending Provider Activ e Start: November 24, 2024 End: November 24, 2024 Team Status: Inactive Member Role/Relationship Status Dates Dr. Anival Flower MD Primary Care Provider Active Start: February 01, 2025 End: February 01, 2025 Dr. Anival Flower MD Referring Provider Active S tart: February 01, 2025 End: February 01, 2025 Dr. Mari Hensley DO Attending Provider Activ e Start: February 01, 2025 End: February 01, 2025 Goals (unrecognized section and content) Goals may be documented in a n alternate sectionGoals may be documented in an alternate sectionGoals may be documented in an alternate section INFORMATION SOURCE (unrecogn ized section and content) DATE CREATED AUTHOR 11/03/2024 [facility] DATE CREATED AUTHOR AUTHOR'S CASTROIZ LUIS 02/11/2025 [facility] FOR RECORDS PERTAINING TO PATIENTS WHO ARE [...] BE BASED ON THE PRIMARY CLINICAL RECORDS. [facility] [facility]. provides no warranty or guarantee of the accuracy or completeness of information in this document.
[2025-02-16] MEDS: Lactated Ringers 1,000 ML 40 ML IV (06:20)
[2025-02-16] MEDS: Scopolamine 1mg/72hr Patch 1 PATCH TD (06:21)
[2025-02-16] MEDS: Magnesium 1 GM over 15 mins IV (06:26)
--- NOTE | 2025-02-16 07:07 | PCM.PRE.AN2 ---
ASA Classification* ASA Classification ASA Classification: 2 Assessment & Plan Anesthesia* Anesthesia Assessment Anesthesia Assessment: Discussed sedation and/or anesthesia options, risks, benefits, and alternatives with patient/parents/legal guardian/POA. Questions invited. The patient/parents/legal guardian/POA seems to understand and agrees to proceed with anesthesia plan. Reviewed the physical assessment, medical history, allergy history and patient home medications list prior to surgery/procedure/anesthetic and documented any changes. Performed airway and anesthesia risk assessments. Anesthesia Type Anesthesia Type: General History Source History Obtained from:: Patient and Chart Anesthesia Focused Assessment* Temperature: 98 F Pulse Rate: 84 Blood Pressure: 140/83 Respiratory Rate: 16 Pulse Ox: 98 Oxygen Delivery Method: Room Air Airway Assessment Mouth opens: >3 cm Mallampati Score: III Teeth Condition: Intact Neck Range of motion (ROM): Limited ROM (Slight Decrease) Labs Anesthesia Preop lab: CBC WBC 4.7 K/mm3 (4.4-11.0) 02/10/25 08:22 02/10/25 RBC 4.77 M/mm3 (4.2-5.4) 02/10/25 08:22 02/10/25 Hgb 14.3 g/dL (12.0-15.0) 02/10/25 08:22 02/10/25 Hct 43.9 % (37-47) 02/10/25 08:22 02/10/25 Plt Count 216 K/mm3 (150-450) 02/10/25 08:22 02/10/25 CHEMISTRY Potassium 4.7 mmol/L (3.3-5.1) 02/10/25 08:22 02/10/25 Sodium 141 mmol/L (133-145) 02/10/25 08:22 02/10/25 Magnesium 2.1 mg/dL (1.5-2.2) 02/10/25 08:22 02/10/25 BUN 13 mg/dL (4-19) 02/10/25 08:22 02/10/25 Creatinine 0.80 mg/dL (0.70-1.20) 02/10/25 08:22 02/10/25 Glucose 103 mg/dL (70-99) H 02/10/25 08:22 02/10/25 POC Glucose 90 mg/dL (74-106) 02/16/25 06:11 02/16/25 COAG Pre-Assessment Diagnosis/Proposed Procedure Planned Operative Procedure(s): TOTAL ROBOTIC HYSTERECTOMY, BILATERAL SALPING-OOPHORECTOMY, CYSTOSCOPY Anesthesia History 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 Cholinesterase deficiency No 02/02/25 11:09 You/Your Family Experience No 02/02/25 11:09 fever (hyperthermia) with Relationship Recent Exposure to Contagious No 02/16/25 06:06 Disease Does patient have nerve No 02/02/25 11:09 stimulator Patient instructed to have device shut off --Does patient have Pacemaker No 02/16/25 06:06 or ICD? When Was Last Pacemaker Check QUESTION #4 FULL TEXT: You/Your Family Experience fever (hyperthermia) with Anesthesia Last Oral Intake Last Oral intake: Last Oral Intake NPO since 03:40 02/16/25 06:06 Meds taken in AM with sips of No 02/16/25 06:06 water? Meds patient instructed to take am of surgery Any additional information?: Yes NPO since: 03:40 Meds taken in AM with sips of water?: No PONV PONV - movie editor: PONV - movie editor Female Yes 02/02/25 11:09 HX of Motion Sickness No 02/02/25 11:09 HX of N/V After Surgery No 02/02/25 11:09 Non-Smoker Yes 02/02/25 11:09 Duration of Surgery greater Yes 02/02/25 11:09 than 60 minutes Number of Risk Factors 3 02/02/25 11:09 PONV Score Moderate Risk 02/02/25 11:09 Height & Weight Height & Weight: Anesthesia: Height & Weight Height 5 ft 1 in 02/16/25 06:06 Weight: 92 kg 02/16/25 06:06 Body Mass Index (BMI) 38.3 02/16/25 06:06 Respiratory Assessment Respiratory Assessment - movie editor: Respiratory Tract Infection Hx - movie editor Hx Respiratory Tract Infection No 02/02/25 11:09 STOP Sleep Apnea STOP Sleep Apnea - movie editor: STOP Sleep Apnea - movie editor Hx Hypertension Yes: PER PT, CONTROLLED ON 02/02/25 11:09 MEDS Hx Sleep Apnea No 02/02/25 11:09 CPAP BIPAP Do you snore loudly (louder No 02/02/25 11:09 than talking or can be heard Do you often feel tired/ No 02/02/25 11:09 fatigued/ sleepy during daytime? Has anyone observed you stop No 02/02/25 11:09 breathing during sleep? STOP Results Negative 02/02/25 11:09 QUESTION #5 FULL TEXT : Do you snore loudly (louder than talking or can be heard through closed doors)? 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 Specify any problems Hx of Preganancy in last 3 No 02/02/25 11:09 Months Nurse Filling Out Transfusion [id number] 02/02/25 11:09 & Questions: Date: 02/02/25 02/02/25 11:09 Time: 11:14 02/02/25 11:09 Patient unable to answer at this time (ie. confused, unrespo /Reproduction History /Reproductive History - movie editor: /Reproductive Hx- movie editor Hx Now Gestational Age (in weeks): EDC: Hx Hx Para Hx Section SAB No 02/02/25 11:09 Active Medications Active Medications: Current Medications Generic Name Dose Route Start Last Admin Trade Name Freq PRN Reason Stop Dose Admin Acetaminophen 1,000 mg 02/16/25 07:30 02/16/25 06:21 Acetaminophen 500 Mg Tablet PO 02/16/25 07:31 1,000 mg PREOP ONE Administration Celecoxib 400 mg 02/16/25 07:30 02/16/25 06:21 Celecoxib 200 Mg Capsule PO 02/16/25 07:31 400 mg PREOP ONE Administration Gabapentin 600 mg 02/16/25 07:30 02/16/25 06:21 Gabapentin 600 Mg Tablet PO 02/16/25 07:31 600 mg PREOP ONE Administration Lactated Ringer's 1,000 mls @ 40 mls/hr 02/16/25 07:30 02/16/25 06:20 IV 40 mls/hr .Q25H TATIANA Administration Cefazolin Sodium 2 gm/ Sodium 110 mls @ 150 mls/hr 02/16/25 07:30 Chloride IV 02/16/25 08:13 INTRAOP ONE Lactated Ringer's 1,000 mls @ 70 mls/hr 02/16/25 07:30 IV .[id number] TATIANA Magnesium Sulfate 1 gm/ 102 mls @ 408 mls/hr 02/16/25 07:30 02/16/25 06:26 Dextrose IV 02/16/25 07:44 408 mls/hr PREOP ONE Administration Insulin Human Lispro 0 unit 02/16/25 07:30 Insulin Lispro 100 Unit/Ml Insuln.Pen SC Q4H PRN PRN BG >/= 180, SEE PROTOCOL Protocol Ondansetron HCl 4 mg 02/16/25 07:30 Ondansetron 4 Mg/2 Ml Vial IV 02/16/25 07:31 INTRAOP ONE Phenazopyridine HCl 190 mg 02/16/25 07:30 02/16/25 06:21 Phenazopyridine 95 Mg Tablet PO 02/16/25 07:31 190 mg PREOP ONE Administration Scopolamine HBr 1 patch 02/16/25 07:30 02/16/25 06:21 Scopolamine 1mg/72hr Patch TD 02/16/25 07:31 1 patch PREOP ONE Administration PFSH Medical History Post-menopausal Non-smoker Seasonal allergies Hypertension Home Medications ?Medication ?Instructions ?Recorded ?Last Taken ?Type biotin 1 mg capsule 1 mg PO QDAY 08/24/24 Unknown History cholecalciferol (vitamin D3) 50 50 mcg PO QDAY 08/24/24 Unknown History mcg (2,000 unit) capsule fexofenadine 180 mg tablet 180 mg PO DAILY 09/15/24 Unknown History (Clari Allergy) lisinopril 10 mg tablet 10 mg PO DAILY 09/15/24 02/15/25 History meloxicam 7.5 mg tablet 7.5 mg PO DAILY 09/15/24 Unknown History ibuprofen 800 mg tablet 800 mg PO Q8H PRN pain #30 tabs 02/16/25 Unknown Rx oxycodone-acetaminophen 5 mg-325 1 tab PO Q4H PRN pain 7 days #20 02/16/25 Unknown Rx mg tablet (Percocet) tabs Allergy/AdvReac Type Severity Reaction Status Date / Time No Known Allergies Allergy Verified 02/16/25 06:00 Family History Mother Hypertension Father Hypertension Cancer prostate- remission Grandfather Heart disease Grandmother Heart disease Surgical History S/P dilation and curettage History of hysteroscopy Hx of bilateral breast reduction surgery History of tonsillectomy Hx of breast biopsy delivery delivered Social History Smoking Status: Never smoker alcohol intake: never substance use type: does not use caffeine: Yes what type of physical activity do you participate in: none seatbelt use: always do you feel safe at home: Yes 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
--- NOTE | 2025-02-16 07:13 | HP.PCM_ITS ---
History and Physical Intake Vital Signs 11/24/2513:30 02/01/2513:06 Height 5 ft 1 in 5 ft 1 in Weight: 207 lb 6 oz BMI 39.2 BP 162/84 H Intake Visit Reasons: TRHBSO Cysto Chief Complaint: TRHBSO Cysto Preop Compliance Specialist Required: No Is patient in pain?: No Allergies No Known Allergies Allergy (Verified 02/01/25 13:11) Medications ?Medication ?Instructions ?Recorded ?Confirmed ?Type biotin 1 mg capsule 1 mg PO QDAY 08/24/24 02/01/25 History cholecalciferol (vitamin D3) 50 50 mcg PO QDAY 08/24/24 02/01/25 History mcg (2,000 unit) capsule fexofenadine 180 mg tablet 180 mg PO DAILY 09/15/24 02/01/25 Histor y (Clari Allergy) lisinopril 10 mg tablet 10 mg PO DAILY 09/15/24 02/01/25 History meloxicam 7.5 mg tablet 7.5 mg PO DAILY 09/15/24 02/01/25 Histor y Held on 09/29/24. Instructions: Resume on 10/03/24. Is last menstrual period known: No Post menopausal: Yes Patient : No : No PFSH Medical History Post-menopausal Non-smoker Seasonal allergies Hypertension Surgical History S/P dilation and curettage History of hysteroscopy Hx of bilateral breast reduction surgery History of tonsillectomy Hx of breast biopsy delivery delivered Family History Mother HypertensionFather Hypertension Cancer prostate- remission Grandfather Heart diseaseGrandmother Heart disease Social History Smoking Status: Never smoker alcohol intake: never substance use type: does not use caffeine: Yes what type of physical activity do you participate in: none seatbelt use: always do you feel safe at home: Yes 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 She is status post D&C with finding on pathology report of atrophic endometrium and contaminant of uterine cancer cells from another patient. Her uterus is enlarged measuring 12.5 cm with some small fibroids. She has some chronic back pain and it is uncertain if the pain is from the enlarged uterus. FINDINGS: Measurements: Uterus: 12.5 cm x 5.8 cm x 5.3 cm. Evidence of a 1.7 cm x 1.7 cm x 0.9 cm calcified fibroid. There is also evidence of a 1.6 cm x 0.9 cm x 1.2 cm fibroid. Endometrial Thickness: 7.1 mm. The endometrium has a trilaminar appearance. This is thickened. Right Ovary: Not visualized. Left Ovary: 5.6 cm x 5.4 cm x 4.2 cm. There is a 4.8 cm x 4.7 cm x 4.3 cm cyst. TRANSABDOMINAL: Uterus: Fibroid uterus. Endometrium: Thickened. This measures 7.1 mm. Right ovary: Not visualized. Left ovary: 4.8 cm x 4.77 x 4.3 cm simple cyst. No large pelvic mass identified. Transvaginal sonography was performed to better visualize the endometrium. TRANSVAGINAL: Uterus: Anteverted. Fibroid uterus. Endometrium: Endometrial thickening measuring 7.1 cm. Right ovary: Not visualized Left ovary: 4.8 cm x 4.77 x 4.3 cm simple cyst. Other adnexal findings: None. Cul-de-sac: No free intraperitoneal fluid identified. No tenderness. US/Pelvic w/ Transvaginal IMPRESSION: Fibroid uterus. Endometrial thickening. Left ovarian cyst. Follow-up recommended. Reading Location: [facility] History 2 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 Date Name GA/Weeks Outcome Route Bth Weight Infant Gen Labor Lgth Anesthesia Del Locatn Provider FOB Unknown 1993 Emily live - full term C-s ection Unknown 197 Luke live - full term C-secti on ROS Const ROS Unobtainable: All systems reviewed & are unremarkable except as noted in H Resp Resp: Reports system reviewed and no additional complaints, except as documented; Denies cough GI GI: Reports as per HPI Psych Psych: Reports system reviewed and no additional complaints, except as documented Exam Const General: cooperative, healthy appearing, comfortable and no acute distress Resp Effort & Inspection: normal respiratory effort Skin General: no rashes or lesions noted Psych Appearance: grossly normal Speech and Movement: speech and movement normal Coding Level of Care Code Off vis,est,level 4 Diagnoses Fibroid uterus D25.9 Postmenopausal bleeding N95.0 HTN (hypertension) I10 Assessment and Plan Assessment and Plan (1) Fibroid uterus: Status: Acute (2) Postmenopausal bleeding: Status: Acute Comment: post evaluation (3) HTN (hypertension): Status: Chronic Plan After discussing the patient's diagnosis and treatment plan options, patient wishes to proceed with surgical management. I have discussed with the patient the risks, benefits, and alternatives of the procedure which include but are not limited to risks of anesthesia, bleeding, infection, possible damage to bowel, bladder, or surrounding vasculature which could lead to additional surgery to evaluate any complications. Patient agrees to procedure and wishes to proceed. ACOG/uptodate references given for additional information regarding procedure. plan for total robotic hysterectomy BSO, cysto 02/16/25
--- NOTE | 2025-02-16 07:14 | DCINST_ITS ---
Discharge Instructions DC O2, CPAP, BIPAP needs Home O2 Discharge instructions: No Dressing / Incision Discharge Activity: May Shower May resume sexual activity in: 8 weeks Weight Bearing Status: Full weight bearing Lifting Restrictions: 10 pounds for 2 weeks Dressing / Incision Call your doctor if your incision/area has: Continuous Slow Oozing, Sudden I ncreased Bleeding, Increased Pain/ Swelling, Increased Redness and Foul Smelling Discharge Call your doctor if you observe: Fever of 101 or Higher, Using more than 1 pad per hour, Shortness of breath, Chest pain and Uncontrolled pain Suture Line Care: Avoid Pulling/Pushing and Avoid Pinching/Bending Remove Dressing in: 1 week (if present) Cleanse incision/area with: Soap & Water and Keep Dressing Clean & Dry Follow Up Care Please Follow Up With: Mari Hensley DO When: Call to make an appointment with your doctor for a postop visit in 2 and 6 weeks Test Results: Test results from this visit will be discussed in further detail at your follow- up appointment, if applicable. Discharge Plan Admission Primary Reason for Your Visit: robotic hysterectomy Attending Provider: Mari Hensley Primary Care Provider: Anival Flower Instructions Print Language: Vietnamese Discharge Orders/Prescriptions Prescriptions: New ibuprofen 800 mg tablet 800 mg PO Q8H PRN (Reason: pain) Qty: 30 0RF oxycodone-acetaminophen [Percocet] 5-325 mg tablet 1 tab PO Q4H PRN (Reason: pain) 7 Days Qty: 20 0RF Continued biotin 1 mg capsule 1 mg PO QDAY cholecalciferol (vitamin D3) 50 mcg (2,000 unit) capsule 50 mcg PO QDAY meloxicam 7.5 mg tablet 7.5 mg PO DAILY lisinopril 10 mg tablet 10 mg PO DAILY fexofenadine [Clari Allergy] 180 mg tablet 180 mg PO DAILY Referrals / Follow Up: Anival Flower MD [Primary Care Provider] - Disposition Disposition (needs filled in before D/C Order can be placed): Home, Self Care
--- NOTE | 2025-02-16 07:30 | UT_PTH ---
PATIENT: QUINTEN KRISHNAN LOC: [facility] – [place] U#:[id number] AGE/SX: 59/F ROOM: RE02/16/[address]: Dr. Mari Hensley DO : 1965 BED: DIS: 02/16/2025 SPEC #: [id number] RECD: 02/16/25 11:12 STATUS: KENDALL PATELSarmad #: [id number] LORE: 02/16/25 07:[address]: Mari Hensley DEPT: SURGICAL PATHOLOGY RECD BY: Tono Perez ENTERED: 02/16/25 12:49 SP TYPE: UTERUS OTHR DR: Dr. Anival Flower MD Tissues: A - Uterus, NOS Procedures: Surgery Specimen Level V HEADER OPERATION: ERAS, laparoscopic total robotic hysterectomy bilateral salpingectomy PRE-OP DIAGNOSIS: Fibroid uterus, postmenopausal bleeding, hypertension TISSUE SUBMITTED: A- Uterus, cervix, bilateral fallopian tubes, bilateral ovaries MICROSCOPIC DIAGNOSIS A. Uterus, cervix, bilateral fallopian tubes and ovaries, hysterectomy, bilateral salpingo-oophorectomy: * Cervix: Benign squamous epithelium and endocervical glandular tissue * Endometrium: Inactive/weakly proliferative endometrium * Myometrium: Superficial adenomyosis, leiomyomata * Bilateral ovaries: Follicular cyst, corpora albicantia * Bilateral fallopian tubes: Benign fallopian tubes with plical fibrosis and benign paratubal cysts MICROSCOPIC DESCRIPTION Slides are reviewed. GROSS DESCRIPTION A. Received in formalin labeled with the patient's name and date of . Designated as uterus, cervix, bilateral fallopian tubes, bilateral ovaries is a 94.1 g, 9.6 x 4.8 x 3.9 cm uterus with attached adnexa. The serosa is rose-pink to red. The attached cervix is rose-pink to red and slightly irregular, measuring 2.3 x 1.6 cm; the 0.7 cm os is probe patent. The specimen is inked as follows: Grxrbesa-aiflmSzbmzkdbd-odwqhHstgdpkzgmj-orange. Opening reveals a 6.8 x 2.5 cm endometrial canal lined by rose-pink to red, somewhat granular endometrium that measures up to 0.3 cm thick. The myometrium is pink and trabeculated, measuring up to 1.9 cm thick. There are few intramural leiomyomas, 0.2 cm to 1.7 cm, the largest of which is centrally calcified. The pink-purple bilateral fallopian tubes are fimbriated and measure 5.6 x 0.6 cm (L) and 5.4 x 0.8 cm (R). Few paratubal cyst are present, 0.1 cm to 0.3 cm The right ovary is rose-white and cerebriform (2.8 x 1.3 by 1.2 cm) while the left ovary is cystic and deflated (5.5 x 3.8 x 0.8 cm). Sectioning of the left side reveals it is comprised of a focally cystic wall devoid of identifiable ovarian parenchyma or excrescences. Forms Designer sections are submitted as follows: A1: Anterior and posterior cervixA2: Anterior endomyometriumA3: Posterior endomyometriumA4-A5: Left fallopian tubeA6: Right fallopian tubeA6: Left ovarian cyst wallA7: Right ovaryA8: Intramural leiomyomas [place] 02/16/2025 CPT:68871
--- NOTE | 2025-02-16 09:33 | PCM.OPRPT ---
Problems Associated Problem List Diagnoses (1) Fibroid uterus: (2) Postmenopausal bleeding: Multi Select Codes Urinary/Genital Urinary/Genital CPT Codes: 57885 Cystoscopy and 76510 TLH+BS/O <250gr uterus Operative Report (Standard) Operative Information Date of Procedure: 02/16/25 Pre-Operative Diagnosis: fibroid uterus, pelvic pain, left ovarian cyst, postmenopausal bleeding Post-Operative Diagnosis: fibroid uterus, pelvic pain, left ovarian cyst, postmenopausal bleeding Surgery/Procedure Performed: total robotic hysterectomy, bilateral salpingo--oophorectomy, cystoscopy, lysis of adhesions gifted teacher: Yes Injection Molding Machine Offbearer: Alessandra Clark Tasks completed by imaging assistant: Closing and Insert Trochanter Additional assistant director of plant operations?: Yes Additional Tree Killer #2: Sandor Hammer Tasks completed by assistant director of plant operations #2: Closing and Trocar Additional assistant director of plant operations?: No Type of Anesthesia: General RN Documented Start/Stop Times: Operation Date: 02/16/25 07:30 Case Time Into Pre-Op 02/16/25 05:45 Out of Pre-Op 02/16/25 07:25 Anesthesia Start 02/16/25 07:30 Into Room 02/16/25 07:30 Procedure Start 02/16/25 08:02 Procedure Start Time: 08:02 Procedure Stop Time: 09:41 Select all DRAINS/GRAFTS/IMPLANTS that apply: None Estimated Blood Loss: 80cc Specimen collected: Yes Description of specimen(s) removed: uterus, tubes, fallopian tubes, ovaries Description of surgery: Reason for surgery: This is a 59-year-old G2, P2 who presented to my office with history of postmenopausal bleeding. A dilation curettage procedure was performed and the specimen was benign with some flecks of foreign tissue that indicated uterine cancer from a outside source. This made the patient feel unsettled and combined with her pelvic pain and low back pain ovarian cyst on the left side that was persistent and the fibroid uterus she requested a hysterectomy. The planned procedure is for a robotic hysterectomy with bilateral salpingo-oophorectomy. the risks benefits and alternatives were discussed with the patient the patient had a clear understanding of the procedure and a consent form was signed. Procedure: The patient was placed in the dorsal low lithotomy position and prepped and draped in the normal sterile fashion both abdominally and in the perineum. Her legs were placed in stirrups a Huber catheter was inserted into the urethra without difficulty. A weighted speculum was placed in the vagina and a single-tooth tenaculum was used to grasp the anterior lip of the cervix. An advincula uterine manipulator was inserted through the cervix without complication. It was then tied into place at the 2 and 10:00 locations on the cervix. Gloves were changed and attention was turned towards the abdomen. Approximately 23 cm above the pubic symphysis in the midline, and after Marcaine injection, a 8 mm incision was made. An 8 mm trocar was inserted through the laparoscope, then inserted into the abdomen under direct visualization using the laparoscope. Good abdominal placement was noted and no complications were appreciated. An air seal device was utilized to create pneumoperitoneum. At 12 cm lateral to the midline on the left and right sides 8 mm accessory ports were placed. Next a left upper quadrant 8 mm assistant director of plant operations port site was placed. The patient was placed in steep Trendelenburg position. The robot was docked. The hysterectomy was initiated first by taking down the round ligament on each side using the vessel sealer device. The peritoneum between the round ligament and the IP ligament was opened using electrocautery and extended the length of the IP ligament. The IP ligament was then taken down using the vessel sealer device. These areas were freed without complication, releasing the ovaries and fallopian tubes. The broad ligament was then and taken down using the vessel sealer device. Next the bladder flap was taken down without complication. However, there was dense adhesions especially from the left lower quadrant to the anterior uterine wall encompassing the bladder. This was taken down carefully using blunt and sharp dissection as well as electrocautery. This was done using monopolar cautery to the level of the cervical vaginal junction. The bladder flap was taken down further after dissection of the scar tissue was performed. After the bladder flap was created, uterine vessels were then isolated and cauterized using the vessel sealer device and EndoShears. At this point the uterine vessels were taken down further starting from the ascending branch, dissecting along the edges of the cervix to the level of the cervical vaginal junction with hemostasis appreciated. The cervical vaginal junction was then using monopolar cautery in a circumferential pattern across the superior aspect of the cervix. The specimen was delivered through the vagina and sent to pathology. There was noted to be a small tear in the epiploica of the descending colon that was slightly oozing. Fibrillar was applied to this area and excellent hemostasis was noted. The remaining vaginal cuff was then closed using a V lock suture. This was performed in a running technique. Excellent hemostasis was obtained and good closure was noted. Irrigation was then performed. All operative sites were noted to be hemostatic. A cystoscopy was performed with a 70 degree cystoscope through the urethra into the bladder without complication. The bladder was instilled with approximately 250 cc of normal saline. Intraoperative images were made. Ureteral orifices and jets were identified. No suture material was appreciated in the bladder. The bladder was then drained and cystoscope was removed. The abdominal cavity was again examined using the laparoscope after the robot was undocked. All operative sites were noted to be hemostatic. The trochars were removed under direct visualization without complication and pneumoperitoneum was reduced. At this point the skin was then closed using 4-0 Monocryl subcuticular stitch and sealed with surgical glue. The patient tolerated the procedure well sponge lap and needle counts were correct x2 the patient was taken to the recovery room in stable condition. Surgical Findings: Dense scar tissue of the lower uterine segment and bladder. Left ovarian cyst approximately 5 cm simple appearing with clear fluid. Complications Complications: No Admit VTE Documentation VTE Present on Admission: No VTE Mechan Device Prophylaxis: SCD's VTE Pharm Prophylaxis ordered?: No Reason prophylaxis not ordered: Treatment Not Indicated
--- NOTE | 2025-02-16 10:09 | PCM.POST.ANE ---
Anesthesia: Postop Eval I Current Vital Signs Temperature: 97 F Pulse Rate: 92 Blood Pressure: 103/79 Respiratory Rate: 16 Pulse Ox: 96 Assessment Airway patent: Yes Spontaneous unlabored respirations: Yes nausea: No Vomiting: No Anesthesia Complication: No Fluid Hydration Crystalloid volume administer (ml): 1,100 Total IV fluid infused: 1,100 Progress Note Anesthesia document: Postop Eval 1 completed: Yes
[2025-02-16] MEDS: Lactated Ringers @ 70 MLS/HR 70 ML IV (10:35)
[2025-02-16] MEDS: HYDROcodone Bitartrate/Apap 5/325 Tablet PO (12:26)
[2025-02-16] MEDS: Ketorolac 30 MG/ML Syringe IV (13:23)
--- NOTE | 2025-02-16 13:34 | POSTOPAN2_ITS ---
Anesthesia Postop Eval I Sum Postop Eval Completion status Anesthesia document: Postop Eval 1 completed: Yes Anesthesia Postop Eval I Summary Anesthesia Postop Eval I Summary: Anesthesia Postop Eval I: Assessment Summary Airway patent Yes 02/16/25 10:09 JEWEL BEARING [email or web address].[email or web address] Spontaneous unlabored Yes 02/16/25 10:09 JEWEL BEARING POLISHER.TNES respirations Mental status nausea No 02/16/25 10:09 JEWEL BEARING POLISHER.TNES Vomiting No 02/16/25 10:09 JEWEL BEARING POLISHER.TNES Anesthesia Postop Eval I: Fluid Summary Crystalloid volume administer 1,100 02/16/25 10:09 JEWEL BEARING POLISHER.TNES (ml) Colloids volume administered ( ml) Blood Product volume administered (ml) Total IV fluid infused 1,100 02/16/25 10:09 JEWEL BEARING POLISHER.TNES Anesthesia Postop Eval I: Summary Notes Anesthesia Complication No 02/16/25 10:09 JEWEL BEARING [email or web address].TNES Anesthesia Complication Comment: Post-operative progress note Anesthesia: Postop Eval II Evaluation Mental status: Awake and Calm Pain Level: 2 nausea: No Vomiting: No Complications Anesthesia Complication: No
--- NOTE | 2025-02-16 13:34 | PCM.POSTANE2 ---
Anesthesia Postop Eval I Sum Postop Eval Completion status Anesthesia document: Postop Eval 1 completed: Yes Anesthesia Postop Eval I Summary Anesthesia Postop Eval I Summary: Anesthesia Postop Eval I: Assessment Summary Airway patent Yes 02/16/25 10:09 CHANNEL CEMENTER OUTSOLE [email or web address].[email or web address] Spontaneous unlabored Yes 02/16/25 10:09 CHANNEL CEMENTER OUTSOLE MACHINE.TNES respirations Mental status nausea No 02/16/25 10:09 CHANNEL CEMENTER OUTSOLE MACHINE.TNES Vomiting No 02/16/25 10:09 CHANNEL CEMENTER OUTSOLE MACHINE.TNES Anesthesia Postop Eval I: Fluid Summary Crystalloid volume administer 1,100 02/16/25 10:09 CHANNEL CEMENTER OUTSOLE MACHINE.TNES (ml) Colloids volume administered ( ml) Blood Product volume administered (ml) Total IV fluid infused 1,100 02/16/25 10:09 CHANNEL CEMENTER OUTSOLE MACHINE.TNES Anesthesia Postop Eval I: Summary Notes Anesthesia Complication No 02/16/25 10:09 CHANNEL CEMENTER OUTSOLE MACHINE.TNES Anesthesia Complication Comment: Post-operative progress note Anesthesia: Postop Eval II Evaluation Mental status: Awake and Calm Pain Level: 2 nausea: No Vomiting: No Complications Anesthesia Complication: No
== END 2025-02-16 14:41 | disposition home or self-care (01) ==
LOC: SDC 05:31 → AC 05:32
PROVIDERS: PCP Family Medicine; Referring Provider Obstetrics & Gynecology; Visit Provider Obstetrics & Gynecology
PROC: 0UT94ZZ Resection of Uterus, Percutaneous Endoscopic Approach (ICD-10-PCS; CPT 58571; principal; 2025-02-16 07:10)
DX: N80.03 Adenomyosis of the uterus (principal); D25.9 Leiomyoma of uterus, unspecified; N73.6 Female pelvic peritoneal adhesions (postinfective); N95.0 Postmenopausal bleeding; N83.01 Follicular cyst of right ovary; N83.02 Follicular cyst of left ovary; N83.8 Other noninflammatory disorders of ovary, fallopian tube and broad ligament; N83.292 Other ovarian cyst, left side; N83.291 Other ovarian cyst, right side; I10 Essential (primary) hypertension; Z79.899 Other long term (current) drug therapy
CPT/HCPCS: 58571; 52000; 00840; 36415; 80053; 82962; 83735; 85025; 86850; 86900; 86901; 88307; J2405; J3475

== ENCOUNTER → 2025-07-09 | Outpatient (CLI) | payer OTHER, SELFPAY ==
--- NOTE | 2025-07-09 12:02 | BI_ITS ---
EXAM: SCRN MAMM (CAD)W/CARLYLE BILAT DATE: 07/09/2025 CLINICAL HISTORY: F, Age 60 y/o , SCREENING TECHNIQUE: Procedure Code: [id number] Modality: MG Procedure: SCRN MAMM (CAD)W/CARLYLE BILAT COMPARISON: Prior exam(s) were compared FINDINGS: TISSUE DENSITY: The breasts are heterogeneously dense, which may obscure small masses. Bilateral Breast Mammographic Findings: Left breast: There is an asymmetry in the lower left breast mid depth seen on the MLO view only. Recommend spot-compression MLO view, full field 90 view and possible targeted ultrasound. Right breast: No significant masses, calcifications or other abnormalities are identified. BI/SCRN MAMM (CAD)W/CARLYLE BILAT IMPRESSION: Additional diagnostic imaging is recommended of the left breast as described ab ove No mammographic evidence of malignancy in the right breast. OVERALL FINAL ASSESSMENT BI-RADS 0: INCOMPLETE - NEED ADDITIONAL IMAGING EVALUATION. RECOMMENDATION: Additional Views obtained/call backs Additional Recommendation none A letter with findings and recommendations will be mailed to the patient. Reading Location: [id number]
== END | disposition home or self-care (01) ==
LOC: OPBI 11:59
PROVIDERS: PCP Family Medicine; Referring Provider Physician Assistant; Visit Provider Physician Assistant
DX: Z12.31 Encounter for screening mammogram for malignant neoplasm of breast (principal)
CPT/HCPCS: 77063; 77067

== ENCOUNTER → 2025-07-19 | Outpatient (CLI) | payer OTHER, SELFPAY ==
--- NOTE | 2025-07-19 13:02 | BI_ITS ---
EXAM: DIAG MAMM W/CAD, UNILAT 07/19/2025 CLINICAL HISTORY: F, Age 60 y/o , LEFT BREAST ABN MAMM TECHNIQUE: Procedure Code: [id number] Modality: MG Procedure: DIAG MAMM W/CAD, UNILAT. Inconclusive screening mammogram dated 07/09/2025 showed an asymmetric density in the left breast. Evaluate. Patient does have a history of bilateral breast reduction surgery which was performed in July 2024. COMPARISON: Prior exam(s) dated 07/09/2025 and 08/09/2023. FINDINGS: TISSUE DENSITY: There are scattered areas of fibroglandular density. Bilateral Breast Mammographic Findings: There is a 5 x 10 mm mass in the inferior aspect of the left breast near the 6 o'clock position, approximately 7 cm from the nipple. It does persist on the ML view and does not disperse on the spot compression view. Further workup with ultrasound will be performed for further evaluation. BI/DIAG MAMM W/CAD, UNILAT IMPRESSION: There is a 5 x 10 mm mass in the inferior aspect of the left breast near the 6 o'clock position, approximately 7 cm from the nipple. It does persist on the ML view and does not disperse on the spot compr ession view. Further workup with ultrasound will be performed for further evaluation. OVERALL FINAL ASSESSMENT BI-RADS 0: INCOMPLETE - NEED ADDITIONAL IMAGING EVALUATION. RECOMMENDATION: Ultrasound Recommended Additional Recommendation none A letter with findings and recommendations will be mailed to the patient. Reading Location: [id number]
--- NOTE | 2025-07-19 13:03 | US_ITS ---
PROCEDURE: BREAST LIMITED UNILATERAL 07/19/2025 REASON FOR EXAM: F, Age 60 y/o , LEFT BREAST ABN MAMM Left breast mass. Inconclusive mammogram. Evaluate mass. Patient did have a bilateral breast reduction surgery in July of 2024. COMPARISON: Mammogram studies dated 07/19/2025, 07/09/2025 and 08/09/2023. TECHNIQUE: Procedure Code: USBRSTLIMIT Modality: US Procedure: BREAST LIMITED UNILATERAL FINDINGS: There is a solid lobulated hypoechoic mass in the left breast at the 6 o'clock, 7 cm from the nipple position measuring 11 x 8 x 5 mm. This mass has an echogenic rim. The mass is wider than it is tall and does not produce posterior shadowing. It does correlate to the mass on the mammogram. It most likely represents a benign process such as possible scar tissue, a fibroadenoma or fibrocystic mass however; a short-term six-month follow-up mammogram and ultrasound are recommended to document stability. US/Breast Limited Unilateral IMPRESSION: There is a solid lobulated hypoechoic mass in the left breast at the 6 o'clock, 7 cm from the nipple position measuring 11 x 8 x 5 mm. This mass has an echogenic rim. The mass is wider than it is tall and d oes not produce posterior shadowing. It does correlate to the mass on the mammogram. It most likely represents a benign proc ess such as possible scar tissue, a fibroadenoma or fibrocystic mass however; a short-term six-month follow-up mammogram and ult rasound are recommended to document stability. BI-RADS 3: PROBABLY BENIGN. RECOMMENDATION: 6 Month Follow-up Reading Location: [id number]
== END | disposition home or self-care (01) ==
LOC: OPBI 13:00
PROVIDERS: PCP Family Medicine; Referring Provider Physician Assistant; Visit Provider Physician Assistant
DX: N64.89 Other specified disorders of breast (principal)
CPT/HCPCS: 76642; 77061; 77065; G0279